=== PATIENT | female | born 1975 | race Two or more races ===

== ENCOUNTER → 2016-04-25 | Outpatient (CLI) | payer MEDICARE, OTHER ==
[~2016-04-25] MED LIST: /LAMO10TA PO; /LAMO20TA PO; /LOR25TA PO; /MELO7TA PO; ABIL5TAB5 PO; ACET50TA PO; ADDE20CA PO; ADDE5TAB5 PO; ALBU17IN INH; ALBU2TA INH; ALEN70SO PO; AMBI5TAB PO; ARTHTAB4 PO; BACL10TA2 PO; BOTO10VL IM; BUSP5TAB45 PO; CALC600T30 PO; CALC600T7 PO; CALCIUM PO; CHAN0.5P2 PO; CLON0.5T PO; CYMB60CA3 PO; DOCU100C PO; DOXY100C PO; Docusate Sod/Senna PO; FOSA70TA PO; HAIRTAB5 PO; HYDR-3719 PO; HYDROXYZINE PO; HYDRPOW28 PO; IBUP80TA PO; IBUPPOW25 PO; IBUPROFEN PO; IMIT100T PO; IMIT4KIT SC; KETO10TAB PO; LAMO200T PO; LIDO5DIS36 TD; LUNE1TAB5 PO; LYRI150C PO; MAGN400C2 PO; MAXA10TA20 PO; MAXA5TAB10 PO; MELA10TA PO; NAPR250T2 PO; NORCOBULK PO; ONDA8TAB2 PO; OXYC-517 PO; OXYC20TA21 PO; OXYC30TA4 PO; OXYC40TA12 PO; OXYC60TA PO; PENN1.5S TD; PENN1.5S2 TD; PENN1.5S2 TOP; PERC7.5T12 PO; POLYBTL FT; PRAZ1CAP PO; PRAZ2CAP PO; PRED20TAB PO; PRENTAB16 PO; PRENTAB43 PO; PROP10TA8 PO; PROZ10CA7 PO; PROZ40CA PO; QUET50TA2 PO; SUMA6INJ16 SC; TIZA2CAP3 PO; TOPA50TA PO; TOPA50TA7 PO; TRAZ150T PO; TRAZPOW PO; Toradol PO; ULTR50TA PO; VENTAER INH; WELL150T PO; XARE15TA PO; ZITH250T PO; [UNRECOGNIZED DRUG - CODE] PO; [UNRECOGNIZED DRUG - OTHER] TD; norco PO
--- NOTE | 2016-05-12 01:21 | ECWPNPC ---
PATIENT NAME: TORY TIRADO : 1975 GENDER: FEMALE VISIT DATE: 04/25/2016 DISCHARGE DATE: 04/25/16 1008 VISIT LOCKED DATE TIME: PHYSICIAN: PATRIZIA WILLAMS RESOURCE: PATRIZIA WILLAMS REASON FOR APPOINTMENT 1. BACL/HIP HISTORY OF PRESENT ILLNESS HISTORY OF PRESENT ILLNESS: HERE FOR F/U AND MANAGEMENT OF CHRONIC LOW BACK PAIN AND BILATERAL HIP PAIN.HX OF AVASCULAR NECROSIS BILAT. HIPS.RATING PAIN VAS 7/10.CURRENTLY USING OXYCONTIN 15MG BID,HYDROCODONE 10/325 Q8H PRN MDD3 AND LYRICA 200MG TID.FINDS CURRENT MEDICINE HELPFUL AT REDUCING PAIN AND KEEPING HER COMFORTABLE.MEDICALLY RETIRED 100%.DESCRIBES PAIN CONSTANT ACHING AND SORE.PAIN IS AGGREVATED BY COLD WEATHER AND RAIN. FALL RISK SCREENING: SCREENING :NO FALLS IN THE PAST YEAR CURRENT MEDICATIONS TAKING ADDERALL XR 20 MG CAPSULE EXTENDED RELEASE 24 HOUR 1 CAPSULE IN THE MORNING ORALLY ONCE A DAY TAKING SUMATRIPTAN SUCCINATE 6 MG/0.5ML KIT SUBCUTANEOUS TAKING BOTOX 200 UNIT SOLUTION RECONSTITUTED INJECTION Q 3MOS TAKING FUSION 65-65-25-30 MG 4 ORALLY DAILY TAKING LIDODERM 5 % PATCH 1 PATCH TO INTACT SKIN REMOVE AFTER 12 HOURS EXTERNALLY ONCE A DAY TAKING LYRICA 200 MG CAPSULE 1-2 ORALLY TID MDD4-2IN AM,1MIDDAY AND ONE AT HS TAKING OXYCONTIN 15 MG TABLET ER 12 HOUR ABUSE-DETERRENT 1 TABLET ORALLY BID MDD2 TAKING HYDROCODONE-ACETAMINOPHEN 10-325 MG TABLET 1/2 -1 TAB ORALLY Q6H MDD3 NEEDED TAKING CLONAZEPAM 0.5 MG TABLET 1 TABLET ORALLY TWICE DAILY NEEDED NOT-TAKING OMEPRAZOLE 20 MG CAPSULE DELAYED RELEASE 2 CAPSULES ORALLY ONCE A DAY NOT-TAKING RANITIDINE HCL 75 MG TABLET 2 TABLETS ORALLY AT BEDTIME MEDICATION LIST REVIEWED AND RECONCILED WITH THE PATIENT PAST MEDICAL HISTORY MIGRIANES VOCAL CORD POLYPS PTSD ANXIETY/DEPRESSION HODGKINS LYMPHOMA CHRONIC PAIN 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 NEW PATIENT PAIN DIARY TODAY'S VISITNOTES FROM 0-10, WHAT LEVEL IS YOUR PAIN TODAY?0 PAIN CLINIC PFS, CLERGY, PUBLIC HEALTH REFERRALS PFS REFERRAL NEEDED?NO CLERGY REFERRAL NEEDED?NO PUBLIC HEALTH REFERRAL NEEDED?NO WAS THE PROVIDER NOTIFIED OF ANY PERTINENT INFO?NO PFS REFERRAL NEEDED?NO CLERGY REFERRAL NEEDED?NO PUBLIC HEALTH REFERRAL NEEDED?NO WAS THE PROVIDER NOTIFIED OF ANY PERTINENT INFO?NO REVIEW OF SYSTEMS CONSTITUTIONAL: ANY CHANGE IN YOUR MEDICAL CONDITION? NO . CHILLS NO . FEVER NO . INFECTION: DO YOU HAVE NEW INFECTIONS? NO . DO YOU HAVE HISTORY OF MRSA? NO . MUSCULOSKELETAL: ANY NEW PATTERNS OF PAIN OR NUMBNESS? NO . GASTROENTEROLOGY: ANY NEW CHANGE IN BOWEL CONTROL? NO . GENITOURINARY: ANY NEW CHANGE IN BLADDER CONTROL? NO . IS THERE A CHANCE YOU COULD BE ? NO . HEMATOLOGY/LYMPH: DO YOU TAKE ANY BLOOD THINNERS? (FOR EXAMPLE- COUMADIN, PLAVIX, AGGRENOX, PLATEL, PRADAXA, OR XARELTO) NO . WHEN WAS YOUR LAST DOSE? DATE: TIME: . NEUROLOGY: HAVE YOU FALLEN IN THE PAST 6 MONTHS? NO . ANY NEW EXTREMITY NUMBNESS OR WEAKNESS? NO . CARDIOLOGY: DO YOU HAVE A PACEMAKER OR DEFIBRILLATOR? NO . RESPIRATORY: HAVE YOU BEEN SICK IN THE PAST WEEK? NO . FEVER NO . FLU LIKE SYMPTOMS? NO . COUGH NO . INTEGUMENTARY: DO YOU HAVE ANY RASHES OR OPEN SORES? NO . ALLERGIC/IMMUNO: ARE YOU ALLERGIC TO SHELLFISH OR IV DYE? NO . ANY NEW ALLERGIES? NO . PSYCHIATRIC: DO YOU HAVE THOUGHTS OF HURTING YOURSELF OR SOMEONE ELSE? NO . ARE YOU ABUSED, NEGLECTED, OR IN AN UNSAFE ENVIRONMENT? NO . ENDOCRINOLOGY: ARE YOU DIABETIC? NO . OTHER: DO YOU NEED ANY PRESCRIPTIONS? YES . IF YES, PLEASE LIST: OXYCONTIN AND HYDROCODONE . ANY NEW PROBLEMS WITH YOUR MEDICATIONS? NO . WHEN DID YOU LAST EAT? ____ . WHEN DID YOU LAST DRINK? ____ . WHAT DID YOU LAST DRINK? ____ . NAME OF PERSON DRIVING YOU HOME? ____ . DO YOU HAVE ANY OTHER QUESTIONS OR CONCERNS NO . REVIEWED BY: PROVIDER: PATRIZIA PRICE . VITAL SIGNS WT 170 LBS, HT 66 IN, BMI 27.44 INDEX, BP 132/73 MM HG, HR 87 /MIN, RR 18 /MIN, TEMP 96.4 F, OXYGEN SAT % 96, NA INITIALS AM, REVIEWED BY: AM. EXAMINATION GENERAL EXAMINATION: LUNGS:LUNG SOUNDS ARE CLEAR. HEART:HEART RATE REGULAR. MUSCULOSKELETAL:*. MUSCULOSKELETAL:*, MUSCLE STRENGTH TESTING 3/5 BILAT.PALPATION: POSITIVE FOR PAIN OVER L/S SPINE. POSITIVE FOR PAIN OVER L/S PARSPINALS.. ASSESSMENTS BILATERAL LOW BACK PAIN, WITH SCIATICA PRESENCE UNSPECIFIED - M54.5 (PRIMARY) BILATERAL HIP PAIN - M25.551 CHRONIC PRESCRIPTION OPIATE USE - Z79.899 AVASCULAR NECROSIS OF BONES OF BOTH HIPS - M87.051 TREATMENT BILATERAL LOW BACK PAIN, WITH SCIATICA PRESENCE UNSPECIFIED CONTINUE LYRICA CAPSULE, 200 MG, 1-2, ORALLY, TID MDD4-2IN AM,1MIDDAY AND ONE AT HS REFILL OXYCONTIN TABLET ER 12 HOUR ABUSE-DETERRENT, 15 MG, 1 TABLET, ORALLY, BID MDD2 REFILL HYDROCODONE-ACETAMINOPHEN TABLET, 10-325 MG, 1/2 -1 TAB, ORALLY, Q6H MDD3 NEEDED PROCEDURE CODES FA211 ESTABILISHED PATIENT [facility] FACILITY CHARGE G8730 PAIN ASSESS POS TOOL F/U PLAN DOC G8427 DOC MEDS VERIFIED W/PT OR RE FOLLOW UP 4 WEEKS ELECTRONICALLY SIGNED BY ALBERT SINGH ON 05/11/2016 AT 01:28 PM EST DISCLAIMER : THIS IS A VISIT SUMMARY EXTRACTED FROM THE [employer] CHART. IT IS NOT A COPY OF THE [employer] PROGRESS NOTE. MTDD
== END ==
LOC: M PAIN 09:00
PROVIDERS: ATTEND Nurse Practitioner Family
DX: Z09 Encounter for follow-up examination after completed treatment for conditions other than malignant neoplasm (principal); G89.29 Other chronic pain; M54.5 Low back pain; M25.551 Pain in right hip; M87.051 Idiopathic aseptic necrosis of right femur; G43.909 Migraine, unspecified, not intractable, without status migrainosus; F43.10 Post-traumatic stress disorder, unspecified; F32.9 Major depressive disorder, single episode, unspecified; F41.9 Anxiety disorder, unspecified; M87.052 Idiopathic aseptic necrosis of left femur; M87.08 Idiopathic aseptic necrosis of bone, other site; M19.90 Unspecified osteoarthritis, unspecified site; Z91.040 Latex allergy status; Z91.041 Radiographic dye allergy status; Z91.013 Allergy to seafood; Z88.8 Allergy status to other drugs, medicaments and biological substances; Z79.891 Long term (current) use of opiate analgesic; Z79.899 Other long term (current) drug therapy; Z85.71 Personal history of Hodgkin lymphoma

== ENCOUNTER → 2016-05-23 | Outpatient (CLI) | payer MEDICARE, OTHER ==
--- NOTE | 2016-05-31 01:28 | ECWPNPC ---
PATIENT NAME: TORY TIRADO : 1975 GENDER: FEMALE VISIT DATE: 05/23/2016 DISCHARGE DATE: 05/23/16 1027 VISIT LOCKED DATE TIME: PHYSICIAN: PATRIZIA WILLAMS RESOURCE: PATRIZIA WILLAMS REASON FOR APPOINTMENT 1. FOLLOWUP HISTORY OF PRESENT ILLNESS HISTORY OF PRESENT ILLNESS: PAIN THE PATIENT DESCRIBES THE PAIN... THE PATIENT DESCRIBES THE PAIN... HERE FOR F/U AND MANAGEMENT OF CHRONIC LOW BACK PAIN AND BILATERAL HIP PAIN.HX OF AVASCULAR NECROSIS BILAT. HIPS.RATING PAIN VAS 7/10.CURRENTLY USING OXYCONTIN 15MG BID,HYDROCODONE 10/325 Q8H PRN MDD3 AND LYRICA 200MG TID.FINDS CURRENT MEDICINE HELPFUL AT REDUCING PAIN AND KEEPING HER COMFORTABLE.MEDICALLY RETIRED 100%.DESCRIBES PAIN CONSTANT ACHING AND SORE.PAIN IS AGGREVATED BY COLD WEATHER AND RAIN. FALL RISK SCREENING: SCREENING :NO FALLS IN THE PAST YEAR CURRENT MEDICATIONS TAKING ADDERALL XR 20 MG CAPSULE EXTENDED RELEASE 24 HOUR 1 CAPSULE IN THE MORNING ORALLY ONCE A DAY TAKING SUMATRIPTAN SUCCINATE 6 MG/0.5ML KIT SUBCUTANEOUS TAKING BOTOX 200 UNIT SOLUTION RECONSTITUTED INJECTION Q 3MOS TAKING FUSION 65-65-25-30 MG 4 ORALLY DAILY TAKING LIDODERM 5 % PATCH 1 PATCH TO INTACT SKIN REMOVE AFTER 12 HOURS EXTERNALLY ONCE A DAY TAKING CLONAZEPAM 0.5 MG TABLET 1 TABLET ORALLY TWICE DAILY NEEDED TAKING LYRICA 200 MG CAPSULE 1-2 ORALLY TID MDD4-2IN AM,1MIDDAY AND ONE AT HS TAKING OXYCONTIN 15 MG TABLET ER 12 HOUR ABUSE-DETERRENT 1 TABLET ORALLY BID MDD2 TAKING HYDROCODONE-ACETAMINOPHEN 10-325 MG TABLET 1/2 -1 TAB ORALLY Q6H MDD4 NEEDED NOT-TAKING OMEPRAZOLE 20 MG CAPSULE DELAYED RELEASE 2 CAPSULES ORALLY ONCE A DAY NOT-TAKING RANITIDINE HCL 75 MG TABLET 2 TABLETS ORALLY AT BEDTIME MEDICATION LIST REVIEWED AND RECONCILED WITH THE PATIENT PAST MEDICAL HISTORY MIGRIANES VOCAL CORD POLYPS PTSD ANXIETY/DEPRESSION HODGKINS LYMPHOMA CHRONIC PAIN 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 NEW PATIENT PAIN DIARY TODAY'S VISITNOTES FROM 0-10, WHAT LEVEL IS YOUR PAIN TODAY?0 PAIN CLINIC PFS, CLERGY, PUBLIC HEALTH REFERRALS PFS REFERRAL NEEDED?NO CLERGY REFERRAL NEEDED?NO PUBLIC HEALTH REFERRAL NEEDED?NO WAS THE PROVIDER NOTIFIED OF ANY PERTINENT INFO?NO PFS REFERRAL NEEDED?NO CLERGY REFERRAL NEEDED?NO PUBLIC HEALTH REFERRAL NEEDED?NO WAS THE PROVIDER NOTIFIED OF ANY PERTINENT INFO?NO REVIEW OF SYSTEMS CONSTITUTIONAL: ANY CHANGE IN YOUR MEDICAL CONDITION? NO . CHILLS NO . FEVER NO . INFECTION: DO YOU HAVE NEW INFECTIONS? NO . DO YOU HAVE HISTORY OF MRSA? NO . MUSCULOSKELETAL: ANY NEW PATTERNS OF PAIN OR NUMBNESS? YES, PAIN IN RIGHT ARM AND HAVING DIFFICULTY LIFTING . GASTROENTEROLOGY: ANY NEW CHANGE IN BOWEL CONTROL? NO . GENITOURINARY: ANY NEW CHANGE IN BLADDER CONTROL? NO . IS THERE A CHANCE YOU COULD BE ? NO . HEMATOLOGY/LYMPH: DO YOU TAKE ANY BLOOD THINNERS? (FOR EXAMPLE- COUMADIN, PLAVIX, AGGRENOX, PLATEL, PRADAXA, OR XARELTO) NO . WHEN WAS YOUR LAST DOSE? DATE: TIME: . NEUROLOGY: HAVE YOU FALLEN IN THE PAST 6 MONTHS? NO . ANY NEW EXTREMITY NUMBNESS OR WEAKNESS? NO . CARDIOLOGY: DO YOU HAVE A PACEMAKER OR DEFIBRILLATOR? NO . RESPIRATORY: HAVE YOU BEEN SICK IN THE PAST WEEK? YES, STOMACH BUG . FEVER NO . FLU LIKE SYMPTOMS? NO . COUGH NO . INTEGUMENTARY: DO YOU HAVE ANY RASHES OR OPEN SORES? NO . ALLERGIC/IMMUNO: ARE YOU ALLERGIC TO SHELLFISH OR IV DYE? YES . ANY NEW ALLERGIES? NO . PSYCHIATRIC: DO YOU HAVE THOUGHTS OF HURTING YOURSELF OR SOMEONE ELSE? NO . ARE YOU ABUSED, NEGLECTED, OR IN AN UNSAFE ENVIRONMENT? NO . ENDOCRINOLOGY: ARE YOU DIABETIC? NO . OTHER: DO YOU NEED ANY PRESCRIPTIONS? YES . IF YES, PLEASE LIST: LYRICA, HYDROCODONE, OXYCONTIN, LIDODERM . ANY NEW PROBLEMS WITH YOUR MEDICATIONS? NO . WHEN DID YOU LAST EAT? ____ . WHEN DID YOU LAST DRINK? ____ . WHAT DID YOU LAST DRINK? ____ . NAME OF PERSON DRIVING YOU HOME? ____ . DO YOU HAVE ANY OTHER QUESTIONS OR CONCERNS YES, PAIN IN ARM FOR AWHILE NOW . REVIEWED BY: PROVIDER: PATRIZIA PRICE . VITAL SIGNS WT 195 LBS, HT 66 IN, BMI 31.47 INDEX, BP 122/76 MM HG, HR 69 /MIN, RR 16 /MIN, TEMP 96.6 F, OXYGEN SAT % 96, NA INITIALS TL 1000, REVIEWED BY: CSPT WAS WEIGHED ON SCALE- TL. EXAMINATION GENERAL EXAMINATION: LUNGS:LUNG SOUNDS ARE CLEAR. HEART:HEART RATE REGULAR. MUSCULOSKELETAL:*. MUSCULOSKELETAL:*, MUSCLE STRENGTH TESTING 3/5 BILAT.PALPATION: POSITIVE FOR PAIN OVER L/S SPINE. POSITIVE FOR PAIN OVER L/S PARSPINALS.. ASSESSMENTS BILATERAL LOW BACK PAIN, WITH SCIATICA PRESENCE UNSPECIFIED - M54.5 (PRIMARY) BILATERAL HIP PAIN - M25.551 CHRONIC PRESCRIPTION OPIATE USE - Z79.899 AVASCULAR NECROSIS OF BONES OF BOTH HIPS - M87.051 TREATMENT BILATERAL LOW BACK PAIN, WITH SCIATICA PRESENCE UNSPECIFIED REFILL LYRICA CAPSULE, 200 MG, 1-2, ORALLY, TID MDD4-2IN AM,1MIDDAY AND ONE AT HS REFILL OXYCONTIN TABLET ER 12 HOUR ABUSE-DETERRENT, 15 MG, 1 TABLET, ORALLY, BID MDD2 REFILL HYDROCODONE-ACETAMINOPHEN TABLET, 10-325 MG, 1/2 -1 TAB, ORALLY, Q6H MDD4 NEEDED PROCEDURE CODES FA211 ESTABILISHED PATIENT [facility] CHARGE G8730 PAIN ASSESS POS TOOL F/U PLAN DOC G8427 DOC MEDS VERIFIED W/PT OR RE DISPOSITION & COMMUNICATION FOLLOW UP 2 MONTHS ELECTRONICALLY SIGNED BY ALBERT SINGH ON 05/30/2016 AT 07:46 PM EST DISCLAIMER : THIS IS A VISIT SUMMARY EXTRACTED FROM THE [employer] CHART. IT IS NOT A COPY OF THE [employer] PROGRESS NOTE. MTDD
== END ==
LOC: M PAIN 09:20
PROVIDERS: ATTEND Nurse Practitioner Family
DX: Z09 Encounter for follow-up examination after completed treatment for conditions other than malignant neoplasm (principal); G89.29 Other chronic pain; M54.5 Low back pain; M25.551 Pain in right hip; M25.552 Pain in left hip; M87.051 Idiopathic aseptic necrosis of right femur; F43.10 Post-traumatic stress disorder, unspecified; F32.9 Major depressive disorder, single episode, unspecified; F41.9 Anxiety disorder, unspecified; M19.90 Unspecified osteoarthritis, unspecified site; Z88.8 Allergy status to other drugs, medicaments and biological substances; Z91.040 Latex allergy status; Z91.041 Radiographic dye allergy status; Z91.013 Allergy to seafood; Z79.891 Long term (current) use of opiate analgesic; Z79.899 Other long term (current) drug therapy; Z86.69 Personal history of other diseases of the nervous system and sense organs; Z85.71 Personal history of Hodgkin lymphoma

== ENCOUNTER → 2016-07-23 | Outpatient (CLI) | payer MEDICARE, OTHER ==
[~2016-07-23] MED LIST changes: -OXYC40TA12 PO; +OXYC40TA13 PO
--- NOTE | 2016-08-04 01:00 | ECWPNPC ---
PATIENT NAME: TORY TIRADO : 1975 GENDER: FEMALE VISIT DATE: 07/23/2016 DISCHARGE DATE: 07/23/16 1017 VISIT LOCKED DATE TIME: PHYSICIAN: PATRIZIA WILLAMS RESOURCE: PATRIZIA WILLAMS REASON FOR APPOINTMENT 1. CHRONIC PAIN HISTORY OF PRESENT ILLNESS HISTORY OF PRESENT ILLNESS: PAIN THE PATIENT DESCRIBES THE PAIN... THE PATIENT DESCRIBES THE PAIN... THE PATIENT DESCRIBES THE PAIN... HERE FOR F/U AND MANAGEMENT OF CHRONIC LOW BACK PAIN AND BILATERAL HIP PAIN.HX OF AVASCULAR NECROSIS BILAT. HIPS.RATING PAIN VAS 7/10.CURRENTLY USING OXYCONTIN 15MG BID,HYDROCODONE 10/325 Q8H PRN MDD3 AND LYRICA 200MG TID.FINDS CURRENT MEDICINE HELPFUL AT REDUCING PAIN AND KEEPING HER COMFORTABLE.MEDICALLY RETIRED 100%.DESCRIBES PAIN CONSTANT ACHING AND SORE.PAIN IS AGGREVATED BY COLD WEATHER AND RAIN.RECENT DIAGNOSIS OF LYMPHOMA. FALL RISK SCREENING: SCREENING :NO FALLS IN THE PAST YEAR CURRENT MEDICATIONS TAKING ADDERALL XR 20 MG CAPSULE EXTENDED RELEASE 24 HOUR 1 CAPSULE IN THE MORNING ORALLY ONCE A DAY TAKING SUMATRIPTAN SUCCINATE 6 MG/0.5ML KIT SUBCUTANEOUS TAKING BOTOX 200 UNIT SOLUTION RECONSTITUTED INJECTION Q 3MOS TAKING FUSION 65-65-25-30 MG 4 ORALLY DAILY TAKING LIDODERM 5 % PATCH 1 PATCH TO INTACT SKIN REMOVE AFTER 12 HOURS EXTERNALLY ONCE A DAY TAKING CLONAZEPAM 1 MG TABLET 1 TABLET ORALLY TWICE DAILY NEEDED TAKING LYRICA 200 MG CAPSULE 1-2 ORALLY TID MDD4-2IN AM,1MIDDAY AND ONE AT HS TAKING HYDROCODONE-ACETAMINOPHEN 10-325 MG TABLET 1/2 -1 TAB ORALLY Q6H MDD4 NEEDED TAKING OXYCONTIN 15 MG TABLET ER 12 HOUR ABUSE-DETERRENT 1 TABLET ORALLY BID MDD2 NOT-TAKING OMEPRAZOLE 20 MG CAPSULE DELAYED RELEASE 2 CAPSULES ORALLY ONCE A DAY NOT-TAKING RANITIDINE HCL 75 MG TABLET 2 TABLETS ORALLY AT BEDTIME MEDICATION LIST REVIEWED AND RECONCILED WITH THE PATIENT PAST MEDICAL HISTORY MIGRIANES VOCAL CORD POLYPS PTSD ANXIETY/DEPRESSION HODGKINS LYMPHOMA CHRONIC PAIN 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 HOSPITALIZATION/MAJOR DIAGNOSTIC PROCEDURE BULIMIA REVIEW OF SYSTEMS CONSTITUTIONAL: ANY CHANGE IN YOUR MEDICAL CONDITION? YES DX OF IGG-4 DISEASE..SEEING ONCOLOGY IS [place] . CHILLS NO . FEVER NO . INFECTION: DO YOU HAVE NEW INFECTIONS? NO . DO YOU HAVE HISTORY OF MRSA? NO . MUSCULOSKELETAL: ANY NEW PATTERNS OF PAIN OR NUMBNESS? NO . GASTROENTEROLOGY: ANY NEW CHANGE IN BOWEL CONTROL? NO . GENITOURINARY: ANY NEW CHANGE IN BLADDER CONTROL? NO . IS THERE A CHANCE YOU COULD BE ? NO . HEMATOLOGY/LYMPH: DO YOU TAKE ANY BLOOD THINNERS? (FOR EXAMPLE- COUMADIN, PLAVIX, AGGRENOX, PLATEL, PRADAXA, OR XARELTO) NO . WHEN WAS YOUR LAST DOSE? DATE: TIME: . NEUROLOGY: HAVE YOU FALLEN IN THE PAST 6 MONTHS? NO . ANY NEW EXTREMITY NUMBNESS OR WEAKNESS? NO . CARDIOLOGY: DO YOU HAVE A PACEMAKER OR DEFIBRILLATOR? NO . RESPIRATORY: HAVE YOU BEEN SICK IN THE PAST WEEK? NO . FEVER NO . FLU LIKE SYMPTOMS? NO . COUGH NO . INTEGUMENTARY: DO YOU HAVE ANY RASHES OR OPEN SORES? NO . ALLERGIC/IMMUNO: ARE YOU ALLERGIC TO SHELLFISH OR IV DYE? NO . ANY NEW ALLERGIES? NO . PSYCHIATRIC: DO YOU HAVE THOUGHTS OF HURTING YOURSELF OR SOMEONE ELSE? NO . ARE YOU ABUSED, NEGLECTED, OR IN AN UNSAFE ENVIRONMENT? NO . ENDOCRINOLOGY: ARE YOU DIABETIC? NO . OTHER: DO YOU NEED ANY PRESCRIPTIONS? YES HYDROCODONE,OXYCONTIN, LYRICA . IF YES, PLEASE LIST: ____ . ANY NEW PROBLEMS WITH YOUR MEDICATIONS? NO . WHEN DID YOU LAST EAT? ____ . WHEN DID YOU LAST DRINK? ____ . WHAT DID YOU LAST DRINK? ____ . NAME OF PERSON DRIVING YOU HOME? ____ . DO YOU HAVE ANY OTHER QUESTIONS OR CONCERNS NO . REVIEWED BY: PROVIDER: PATRIZIA PRICE . VITAL SIGNS WT 186.6 LBS, HT 66 IN, BMI 30.11 INDEX, BP 116/71 MM HG, HR 76 /MIN, RR 16 /MIN, TEMP 98.9 F, OXYGEN SAT % 98%, NA INITIALS AW 0941. EXAMINATION GENERAL EXAMINATION: LUNGS:LUNG SOUNDS ARE CLEAR. HEART:HEART RATE REGULAR. MUSCULOSKELETAL:*. MUSCULOSKELETAL:*, MUSCLE STRENGTH TESTING 3/5 BILAT.PALPATION: POSITIVE FOR PAIN OVER L/S SPINE. POSITIVE FOR PAIN OVER L/S PARSPINALS.. ASSESSMENTS BILATERAL LOW BACK PAIN, WITH SCIATICA PRESENCE UNSPECIFIED - M54.5 (PRIMARY) BILATERAL HIP PAIN - M25.551 CHRONIC PRESCRIPTION OPIATE USE - Z79.899 AVASCULAR NECROSIS OF BONES OF BOTH HIPS - M87.051 TREATMENT BILATERAL LOW BACK PAIN, WITH SCIATICA PRESENCE UNSPECIFIED CONTINUE LYRICA CAPSULE, 200 MG, 1-2, ORALLY, TID MDD4-2IN AM,1MIDDAY AND ONE AT HS CONTINUE HYDROCODONE-ACETAMINOPHEN TABLET, 10-325 MG, 1/2 -1 TAB, ORALLY, Q6H MDD4 NEEDED CONTINUE OXYCONTIN TABLET ER 12 HOUR ABUSE-DETERRENT, 15 MG, 1 TABLET, ORALLY, BID MDD2 NOTES: ISTOP REGISTRY REVIEWED AND DEMNOSTRATES COMPLLIANCE. BRINGS IN MEDICATIONS WHICH IS APPROPRIATE FOR WHAT WAS DISPENSED. RECENT URINE TOXICOLOGY REVIEWED. NO UNAUTHORIZED MEDICATIONS. NO ILLICIT SUBSTANCES AND PRESCRIBED MEDICATIONS WERE PRESENT. , RISKS AND BENEFITS OF NARCOTIC/OPIOD MEDICATIONS WERE REVIEWED WITH PATIENT - THIS INCLUDES BUT IS NOT LIMITED TO RISK OF DEPENDANCE/DEVELOPMENT OF ADDICTION, MOOD DISTURBANCE AND DEPRESSION, OSTEOPOROSIS, HORMONAL AND LABIDAL CHANGES, RESPIRATORY DEPRESSION AND . PATIENT IS ADVISED NOT TO DRIVE WHILE ON THESE MEDICATIONS. PROCEDURE CODES FA211 ESTABILISHED PATIENT [facility] FACILITY CHARGE G8730 PAIN ASSESS POS TOOL F/U PLAN DOC G8427 DOC MEDS VERIFIED W/PT OR RE DISPOSITION & COMMUNICATION FOLLOW UP 2 MONTHS ELECTRONICALLY SIGNED BY ALBERT SINGH ON 08/03/2016 AT 09:41 AM EDT DISCLAIMER : THIS IS A VISIT SUMMARY EXTRACTED FROM THE [employer] CHART. IT IS NOT A COPY OF THE [employer] PROGRESS NOTE. MTDD
== END | disposition home or self-care (01) ==
LOC: M PAIN 09:00
PROVIDERS: ATTEND Nurse Practitioner Family
DX: G89.29 Other chronic pain (principal); M54.5 Low back pain; M25.551 Pain in right hip; M87.051 Idiopathic aseptic necrosis of right femur; G43.909 Migraine, unspecified, not intractable, without status migrainosus; F43.10 Post-traumatic stress disorder, unspecified; F41.9 Anxiety disorder, unspecified; F33.9 Major depressive disorder, recurrent, unspecified; C85.90 Non-Hodgkin lymphoma, unspecified, unspecified site; M19.90 Unspecified osteoarthritis, unspecified site; J38.1 Polyp of vocal cord and larynx; Z79.899 Other long term (current) drug therapy; Z91.013 Allergy to seafood; Z91.040 Latex allergy status; Z91.041 Radiographic dye allergy status; Z91.048 Other nonmedicinal substance allergy status

== ENCOUNTER → 2016-08-29 | Outpatient (CLI) | payer MEDICARE, OTHER ==
--- NOTE | 2016-08-30 11:21 | REP ---
PET/CT: HISTORY: Initial staging lymphoma. Bilateral laryngeal lesion - biopsy March 26, 2016. History of Hodgkin's disease as a child. COMPARISONS: Comparison chest x-ray March 28, 2016. Comparison chest CT study September 01, 2014. TECHNIQUE: 66 minutes following the intravenous injection of a 8.6 mCi dose of F-18 FDG, three-dimensional PET scintigraphy is acquired from the skull base to the proximal thighs. Triplanar noncontrast CT scanning is acquired through the same anatomic range for attenuation correction, and image registration with scan parameters optimized to minimize radiation exposure to the patient. PET scintigraphy and CT datasets were fused and displayed on a workstation with multiplanar and projection display capability. PET/CT FINDINGS: There is some normal variant skeletal muscle uptake in the trapezius muscle on the left. There is no abnormal laryngeal uptake. No evidence of cervical adenopathy or mass. There is some symmetric uptake in the oropharyngeal wall bilaterally consistent with normal variant. In the thorax, there is no evidence of abnormal hilar or mediastinal adele uptake. There are mild fibrotic changes in the paramediastinal distribution in the upper lobes which may reflect post radiation change. No abnormal pulmonary parenchymal hypermetabolic uptake is seen. In the abdomen and pelvis, there is normal FDG distribution of the liver, spleen, gastrointestinal, and genitourinary tract. No abnormal abdominal or pelvic hypermetabolic uptake is seen. Gastric bypass surgical sutures are seen. IMPRESSION: Negative PET scintigraphy. Signed by Celio Veras MD 08/30/2016 12:40 P
== END ==
LOC: M PLARAD 11:54
PROVIDERS: ATTEND Internal Medicine Hematology & Oncology
DX: C85.90 Non-Hodgkin lymphoma, unspecified, unspecified site (principal)
CPT/HCPCS: 78815; A9552

== ENCOUNTER → 2016-09-21 | Outpatient (CLI) | payer MEDICARE, OTHER ==
--- NOTE | 2016-10-04 01:23 | ECWPNPC ---
PATIENT NAME: TORY TIRADO : 1975 GENDER: FEMALE VISIT DATE: 09/21/2016 DISCHARGE DATE: 09/21/16 1108 VISIT LOCKED DATE TIME: PHYSICIAN: PATRIZIA WILLAMS RESOURCE: PATRIZIA WILLAMS REASON FOR APPOINTMENT 1. CHRONIC PAIN 2 MONTHS F/U HISTORY OF PRESENT ILLNESS HISTORY OF PRESENT ILLNESS: PAIN THE PATIENT DESCRIBES THE PAIN... THE PATIENT DESCRIBES THE PAIN... THE PATIENT DESCRIBES THE PAIN... THE PATIENT DESCRIBES THE PAIN... HERE FOR F/U AND MANAGEMENT OF CHRONIC LOW BACK PAIN AND BILATERAL HIP PAIN.HX OF AVASCULAR NECROSIS BILAT. HIPS.RATING PAIN VAS 7/10.CURRENTLY USING OXYCONTIN 15MG BID,HYDROCODONE 10/325 Q8H PRN MDD3 AND LYRICA 200MG TID.FINDS CURRENT MEDICINE HELPFUL AT REDUCING PAIN AND KEEPING HER COMFORTABLE.MEDICALLY RETIRED 100%.DESCRIBES PAIN CONSTANT ACHING AND SORE.PAIN IS AGGREVATED BY COLD WEATHER AND RAIN. FALL RISK SCREENING: SCREENING :NO FALLS IN THE PAST YEAR CURRENT MEDICATIONS TAKING SUMATRIPTAN SUCCINATE 6 MG/0.5ML KIT SUBCUTANEOUS TAKING BOTOX 200 UNIT SOLUTION RECONSTITUTED INJECTION Q 3MOS TAKING FUSION 65-65-25-30 MG 4 ORALLY DAILY TAKING LIDODERM 5 % PATCH 1 PATCH TO INTACT SKIN REMOVE AFTER 12 HOURS EXTERNALLY ONCE A DAY TAKING CLONAZEPAM 1 MG TABLET 1 TABLET ORALLY TWICE DAILY NEEDED TAKING LYRICA 200 MG CAPSULE 1 TAB ORALLY 3 TIMES A DAY TAKING HYDROCODONE-ACETAMINOPHEN 10-325 MG TABLET 1/2 -1 TAB ORALLY Q6H MDD3 NEEDED TAKING OXYCONTIN 15 MG TABLET ER 12 HOUR ABUSE-DETERRENT 1 TABLET ORALLY BID MDD2 NOT-TAKING ADDERALL XR 20 MG CAPSULE EXTENDED RELEASE 24 HOUR 1 CAPSULE IN THE MORNING ORALLY ONCE A DAY NOT-TAKING OMEPRAZOLE 20 MG CAPSULE DELAYED RELEASE 2 CAPSULES ORALLY ONCE A DAY NOT-TAKING RANITIDINE HCL 75 MG TABLET 2 TABLETS ORALLY AT BEDTIME MEDICATION LIST REVIEWED AND RECONCILED WITH THE PATIENT PAST MEDICAL HISTORY MIGRIANES VOCAL CORD POLYPS PTSD ANXIETY/DEPRESSION HODGKINS LYMPHOMA CHRONIC PAIN 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 REVIEW OF SYSTEMS REVIEWED BY: PROVIDER: PATRIZIA PRICE . CONSTITUTIONAL: ANY CHANGE IN YOUR MEDICAL CONDITION? NO . CHILLS NO . FEVER NO . INFECTION: DO YOU HAVE NEW INFECTIONS? NO . DO YOU HAVE HISTORY OF MRSA? NO . MUSCULOSKELETAL: ANY NEW PATTERNS OF PAIN OR NUMBNESS? NO . GASTROENTEROLOGY: ANY NEW CHANGE IN BOWEL CONTROL? NO . GENITOURINARY: ANY NEW CHANGE IN BLADDER CONTROL? NO . IS THERE A CHANCE YOU COULD BE ? NO . HEMATOLOGY/LYMPH: DO YOU TAKE ANY BLOOD THINNERS? (FOR EXAMPLE- COUMADIN, PLAVIX, AGGRENOX, PLATEL, PRADAXA, OR XARELTO) NO . WHEN WAS YOUR LAST DOSE? DATE: TIME: . NEUROLOGY: HAVE YOU FALLEN IN THE PAST 6 MONTHS? NO . ANY NEW EXTREMITY NUMBNESS OR WEAKNESS? NO . CARDIOLOGY: DO YOU HAVE A PACEMAKER OR DEFIBRILLATOR? NO . RESPIRATORY: HAVE YOU BEEN SICK IN THE PAST WEEK? NO . FEVER NO . FLU LIKE SYMPTOMS? NO . COUGH NO . INTEGUMENTARY: DO YOU HAVE ANY RASHES OR OPEN SORES? NO . ALLERGIC/IMMUNO: ARE YOU ALLERGIC TO SHELLFISH OR IV DYE? YES . ANY NEW ALLERGIES? NO . PSYCHIATRIC: DO YOU HAVE THOUGHTS OF HURTING YOURSELF OR SOMEONE ELSE? NO . ARE YOU ABUSED, NEGLECTED, OR IN AN UNSAFE ENVIRONMENT? NO . ENDOCRINOLOGY: ARE YOU DIABETIC? NO . OTHER: DO YOU NEED ANY PRESCRIPTIONS? YES . IF YES, PLEASE LIST: LYRICA, HYDROCODONE,OXYCONTIN . ANY NEW PROBLEMS WITH YOUR MEDICATIONS? NO . WHEN DID YOU LAST EAT? ____ . WHEN DID YOU LAST DRINK? ____ . WHAT DID YOU LAST DRINK? ____ . NAME OF PERSON DRIVING YOU HOME? ____ . DO YOU HAVE ANY OTHER QUESTIONS OR CONCERNS NO . VITAL SIGNS WT 182.0 LBS, HT 66 IN, BMI 29.37 INDEX, BP 96/63 MM HG, HR 79 /MIN, RR 16 /MIN, TEMP 98.0 F, OXYGEN SAT % 99%, NA INITIALS TL 1018, REVIEWED BY: JULISSA. EXAMINATION GENERAL EXAMINATION: LUNGS:LUNG SOUNDS ARE CLEAR. HEART:HEART RATE REGULAR. MUSCULOSKELETAL:*, MUSCLE STRENGTH TESTING 3/5 BILAT.PALPATION: POSITIVE FOR PAIN OVER L/S SPINE. POSITIVE FOR PAIN OVER L/S PARASPINALS.. ASSESSMENTS BILATERAL LOW BACK PAIN, WITH SCIATICA PRESENCE UNSPECIFIED - M54.5 (PRIMARY) BILATERAL HIP PAIN - M25.551 CHRONIC PRESCRIPTION OPIATE USE - Z79.899 AVASCULAR NECROSIS OF BONES OF BOTH HIPS - M87.051 TREATMENT BILATERAL LOW BACK PAIN, WITH SCIATICA PRESENCE UNSPECIFIED REFILL LYRICA CAPSULE, 200 MG, 1 TAB, ORALLY, 3 TIMES A DAY, 30 DAY(S), 90 TABLET, REFILLS 2 REFILL HYDROCODONE-ACETAMINOPHEN TABLET, 10-325 MG, 1/2 -1 TAB, ORALLY, Q6H MDD4 NEEDED, 30 DAY(S), 120, REFILLS 0 REFILL OXYCONTIN TABLET ER 12 HOUR ABUSE-DETERRENT, 15 MG, 1 TABLET, ORALLY, BID MDD2, 30 DAY(S), 60, REFILLS 0 NOTES: ISTOP REGISTRY REVIEWED AND DEMNOSTRATES COMPLLIANCE. BRINGS IN MEDICATIONS WHICH IS APPROPRIATE FOR WHAT WAS DISPENSED. RECENT URINE TOXICOLOGY REVIEWED. NO UNAUTHORIZED MEDICATIONS. NO ILLICIT SUBSTANCES AND PRESCRIBED MEDICATIONS WERE PRESENT. URINE TOX TODAY, RISKS AND BENEFITS OF NARCOTIC/OPIOD MEDICATIONS WERE REVIEWED WITH PATIENT - THIS INCLUDES BUT IS NOT LIMITED TO RISK OF DEPENDANCE/DEVELOPMENT OF ADDICTION, MOOD DISTURBANCE AND DEPRESSION, OSTEOPOROSIS, HORMONAL AND LABIDAL CHANGES, RESPIRATORY DEPRESSION AND . PATIENT IS ADVISED NOT TO DRIVE WHILE ON THESE MEDICATIONS. PROCEDURE CODES FA211 ESTABILISHED PATIENT [facility] CHARGE DISPOSITION & COMMUNICATION FOLLOW UP 2 MONTHS ELECTRONICALLY SIGNED BY ALBERT SINGH ON 10/03/2016 AT 04:55 PM EDT DISCLAIMER : THIS IS A VISIT SUMMARY EXTRACTED FROM THE [employer] CHART. IT IS NOT A COPY OF THE [employer] PROGRESS NOTE. ELIGIO
== END | disposition home or self-care (01) ==
LOC: M PAIN 10:00
PROVIDERS: ATTEND Nurse Practitioner Family
DX: G89.29 Other chronic pain (principal); M54.5 Low back pain; M25.551 Pain in right hip; M87.051 Idiopathic aseptic necrosis of right femur; F43.10 Post-traumatic stress disorder, unspecified; F41.9 Anxiety disorder, unspecified; F33.9 Major depressive disorder, recurrent, unspecified; M19.90 Unspecified osteoarthritis, unspecified site; Z86.69 Personal history of other diseases of the nervous system and sense organs; Z85.71 Personal history of Hodgkin lymphoma; Z79.899 Other long term (current) drug therapy; Z91.040 Latex allergy status; Z91.041 Radiographic dye allergy status; Z91.013 Allergy to seafood

== ENCOUNTER → 2016-11-21 | Outpatient (CLI) | payer MEDICARE, OTHER ==
[~2016-11-21] MED LIST changes: +ABIL1TAB11 PO; -ABIL5TAB5 PO; +ADDE1TAB14 PO; -ADDE20CA PO; +ADDE20CA3 PO; -ADDE5TAB5 PO; -LIDO5DIS36 TD; +LIDO5DIS41 TD; -NAPR250T2 PO; +NAPR250T4 PO; -OXYC20TA21 PO; +OXYC20TA40 PO; -OXYC40TA13 PO; +OXYC40TA29 PO; -TOPA50TA7 PO; +TOPA50TA8 PO
--- NOTE | 2016-11-25 00:04 | ECWPNPC ---
PATIENT NAME: TORY TIRADO : 1975 GENDER: FEMALE VISIT DATE: 11/21/2016 DISCHARGE DATE: 11/21/16 1000 VISIT LOCKED DATE TIME: PHYSICIAN: PATRIZIA WILLAMS RESOURCE: PATRIZIA WILLAMS REASON FOR APPOINTMENT 1. CHRONIC PAIN 2 MONTHS F/U HISTORY OF PRESENT ILLNESS HISTORY OF PRESENT ILLNESS: PAIN THE PATIENT DESCRIBES THE PAIN... THE PATIENT DESCRIBES THE PAIN... THE PATIENT DESCRIBES THE PAIN... THE PATIENT DESCRIBES THE PAIN... THE PATIENT DESCRIBES THE PAIN... PAIN THE PATIENT DESCRIBES THE PAIN... THE PATIENT DESCRIBES THE PAIN... THE PATIENT DESCRIBES THE PAIN... THE PATIENT DESCRIBES THE PAIN... THE PATIENT DESCRIBES THE PAIN... HERE FOR F/U AND MANAGEMENT OF CHRONIC LOW BACK PAIN AND BILATERAL HIP PAIN.HX OF AVASCULAR NECROSIS BILAT. HIPS.RATING PAIN VAS 7/10.CURRENTLY USING OXYCONTIN 15MG BID,HYDROCODONE 10/325 Q8H PRN MDD3 AND LYRICA 200MG TID.FINDS CURRENT MEDICINE HELPFUL AT REDUCING PAIN AND KEEPING HER COMFORTABLE.MEDICALLY RETIRED 100%.DESCRIBES PAIN CONSTANT ACHING AND SORE.PAIN IS AGGREVATED BY COLD WEATHER AND RAIN. FALL RISK SCREENING: SCREENING :NO FALLS IN THE PAST YEAR CURRENT MEDICATIONS TAKING SUMATRIPTAN SUCCINATE 6 MG/0.5ML KIT SUBCUTANEOUS TAKING BOTOX 200 UNIT SOLUTION RECONSTITUTED INJECTION Q 3MOS TAKING FUSION 65-65-25-30 MG 4 ORALLY DAILY TAKING LIDODERM 5 % PATCH 1 PATCH TO INTACT SKIN REMOVE AFTER 12 HOURS EXTERNALLY ONCE A DAY TAKING CLONAZEPAM 1 MG TABLET 1 TABLET ORALLY TWICE DAILY NEEDED TAKING HYDROCODONE-ACETAMINOPHEN 10-325 MG TABLET 1/2 -1 TAB ORALLY Q6H MDD4 NEEDED TAKING OXYCONTIN 15 MG TABLET ER 12 HOUR ABUSE-DETERRENT 1 TABLET ORALLY BID MDD2 TAKING LYRICA 200 MG CAPSULE 1 TAB ORALLY 3 TIMES A DAY TAKING LEXAPRO 10 MG TABLET 1 TABLET ORALLY ONCE A DAY TAKING CLONIDINE HCL 0.2 MG TABLET 1 TABLET ORALLY ONCE AT BEDTIME NOT-TAKING ADDERALL XR 20 MG CAPSULE EXTENDED RELEASE 24 HOUR 1 CAPSULE IN THE MORNING ORALLY ONCE A DAY NOT-TAKING OMEPRAZOLE 20 MG CAPSULE DELAYED RELEASE 2 CAPSULES ORALLY ONCE A DAY NOT-TAKING RANITIDINE HCL 75 MG TABLET 2 TABLETS ORALLY AT BEDTIME MEDICATION LIST REVIEWED AND RECONCILED WITH THE PATIENT PAST MEDICAL HISTORY MIGRIANES VOCAL CORD POLYPS PTSD ANXIETY/DEPRESSION HODGKINS LYMPHOMA CHRONIC PAIN 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 CONSTITUTIONAL: ANY CHANGE IN YOUR MEDICAL CONDITION? NO . CHILLS NO . FEVER NO . INFECTION: DO YOU HAVE NEW INFECTIONS? NO . DO YOU HAVE HISTORY OF MRSA? NO . MUSCULOSKELETAL: ANY NEW PATTERNS OF PAIN OR NUMBNESS? NO . GASTROENTEROLOGY: ANY NEW CHANGE IN BOWEL CONTROL? NO . GENITOURINARY: ANY NEW CHANGE IN BLADDER CONTROL? NO . IS THERE A CHANCE YOU COULD BE ? NO . HEMATOLOGY/LYMPH: DO YOU TAKE ANY BLOOD THINNERS? (FOR EXAMPLE- COUMADIN, PLAVIX, AGGRENOX, PLATEL, PRADAXA, OR XARELTO) NO . WHEN WAS YOUR LAST DOSE? DATE: TIME: . NEUROLOGY: HAVE YOU FALLEN IN THE PAST 6 MONTHS? NO . ANY NEW EXTREMITY NUMBNESS OR WEAKNESS? NO . CARDIOLOGY: DO YOU HAVE A PACEMAKER OR DEFIBRILLATOR? NO . RESPIRATORY: HAVE YOU BEEN SICK IN THE PAST WEEK? NO . FEVER NO . FLU LIKE SYMPTOMS? NO . COUGH NO . INTEGUMENTARY: DO YOU HAVE ANY RASHES OR OPEN SORES? NO . ALLERGIC/IMMUNO: ARE YOU ALLERGIC TO SHELLFISH OR IV DYE? YES . ANY NEW ALLERGIES? NO . PSYCHIATRIC: DO YOU HAVE THOUGHTS OF HURTING YOURSELF OR SOMEONE ELSE? NO . ARE YOU ABUSED, NEGLECTED, OR IN AN UNSAFE ENVIRONMENT? NO . ENDOCRINOLOGY: ARE YOU DIABETIC? NO . OTHER: DO YOU NEED ANY PRESCRIPTIONS? YES . IF YES, PLEASE LIST: OXYCONTIN, LYRICA, HYDROCODONE . ANY NEW PROBLEMS WITH YOUR MEDICATIONS? NO . WHEN DID YOU LAST EAT? ____ . WHEN DID YOU LAST DRINK? ____ . WHAT DID YOU LAST DRINK? ____ . NAME OF PERSON DRIVING YOU HOME? ____ . DO YOU HAVE ANY OTHER QUESTIONS OR CONCERNS NO . VITAL SIGNS WT 178 LBS, HT 66 IN, BMI 28.73 INDEX, BP 113/68 MM HG, HR 74 /MIN, RR 16 /MIN, TEMP 98 F, OXYGEN SAT % 96%, NA INITIALS AW 0928, REVIEWED BY: NL. EXAMINATION GENERAL EXAMINATION: LUNGS:LUNG SOUNDS ARE CLEAR. HEART:HEART RATE REGULAR. MUSCULOSKELETAL:*, MUSCLE STRENGTH TESTING 3/5 BILAT.PALPATION: POSITIVE FOR PAIN OVER L/S SPINE. POSITIVE FOR PAIN OVER L/S PARASPINALS.. ASSESSMENTS BILATERAL LOW BACK PAIN, WITH SCIATICA PRESENCE UNSPECIFIED - M54.5 (PRIMARY) BILATERAL HIP PAIN - M25.551 CHRONIC PRESCRIPTION OPIATE USE - Z79.899 AVASCULAR NECROSIS OF BONES OF BOTH HIPS - M87.051 TREATMENT BILATERAL LOW BACK PAIN, WITH SCIATICA PRESENCE UNSPECIFIED REFILL HYDROCODONE-ACETAMINOPHEN TABLET, 10-325 MG, 1/2 -1 TAB, ORALLY, Q6H MDD4 NEEDED, 30 DAY(S), 120, REFILLS 0 REFILL OXYCONTIN TABLET ER 12 HOUR ABUSE-DETERRENT, 15 MG, 1 TABLET, ORALLY, BID MDD2, 30 DAY(S), 60, REFILLS 0 REFILL LYRICA CAPSULE, 200 MG, 1 TAB, ORALLY, 3 TIMES A DAY, 30 DAY(S), 90 TABLET, REFILLS 2 NOTES: ISTOP REGISTRY REVIEWED AND DEMNOSTRATES COMPLLIANCE. BRINGS IN MEDICATIONS WHICH IS APPROPRIATE FOR WHAT WAS DISPENSED. RECENT URINE TOXICOLOGY REVIEWED. NO UNAUTHORIZED MEDICATIONS. NO ILLICIT SUBSTANCES AND PRESCRIBED MEDICATIONS WERE PRESENT. , RISKS AND BENEFITS OF NARCOTIC/OPIOD MEDICATIONS WERE REVIEWED WITH PATIENT - THIS INCLUDES BUT IS NOT LIMITED TO RISK OF DEPENDANCE/DEVELOPMENT OF ADDICTION, MOOD DISTURBANCE AND DEPRESSION, OSTEOPOROSIS, HORMONAL AND LABIDAL CHANGES, RESPIRATORY DEPRESSION AND . PATIENT IS ADVISED NOT TO DRIVE WHILE ON THESE MEDICATIONS. PROCEDURE CODES G8730 PAIN ASSESS POS TOOL F/U PLAN DOC G8427 DOC MEDS VERIFIED W/PT OR RE DISPOSITION & COMMUNICATION FOLLOW UP 2 MONTHS ELECTRONICALLY SIGNED BY ALBERT SINGH ON 11/21/2016 AT 09:57 AM EDT DISCLAIMER : THIS IS A VISIT SUMMARY EXTRACTED FROM THE [employer] CHART. IT IS NOT A COPY OF THE [employer] PROGRESS NOTE. ELIGIO
== END ==
LOC: M PAIN 09:00
PROVIDERS: ATTEND Nurse Practitioner Family
DX: G89.29 Other chronic pain (principal); M54.5 Low back pain; M25.551 Pain in right hip; M87.051 Idiopathic aseptic necrosis of right femur; G43.909 Migraine, unspecified, not intractable, without status migrainosus; F43.10 Post-traumatic stress disorder, unspecified; F41.9 Anxiety disorder, unspecified; F32.9 Major depressive disorder, single episode, unspecified; M19.90 Unspecified osteoarthritis, unspecified site; Z88.3 Allergy status to other anti-infective agents; Z91.040 Latex allergy status; Z91.041 Radiographic dye allergy status; Z91.013 Allergy to seafood; Z79.891 Long term (current) use of opiate analgesic; Z79.899 Other long term (current) drug therapy

== ENCOUNTER → 2017-04-23 | Outpatient (CLI) | payer MEDICARE, OTHER | LOC: M PAIN 10:00 | DX: G89.29 Other chronic pain (principal); M54.5 Low back pain; M25.551 Pain in right hip; M87.051 Idiopathic aseptic necrosis of right femur; G43.909 Migraine, unspecified, not intractable, without status migrainosus; F43.10 Post-traumatic stress disorder, unspecified; F41.9 Anxiety disorder, unspecified; F32.9 Major depressive disorder, single episode, unspecified; M19.90 Unspecified osteoarthritis, unspecified site; Z79.891 Long term (current) use of opiate analgesic; Z79.899 Other long term (current) drug therapy; Z88.1 Allergy status to other antibiotic agents; Z91.040 Latex allergy status; Z91.041 Radiographic dye allergy status; Z91.013 Allergy to seafood; Z98.84 Bariatric surgery status; Z85.71 Personal history of Hodgkin lymphoma; Z87.891 Personal history of nicotine dependence | CPT/HCPCS: G0463 ==

== ENCOUNTER → 2017-08-22 | Outpatient (CLI) | payer MEDICARE, OTHER | LOC: M PAIN 10:15 | DX: G89.29 Other chronic pain (principal); M54.5 Low back pain; G43.909 Migraine, unspecified, not intractable, without status migrainosus; F43.10 Post-traumatic stress disorder, unspecified; F41.9 Anxiety disorder, unspecified; F32.9 Major depressive disorder, single episode, unspecified; M19.90 Unspecified osteoarthritis, unspecified site; Z98.84 Bariatric surgery status; Z87.891 Personal history of nicotine dependence; Z91.040 Latex allergy status; Z91.013 Allergy to seafood; Z91.041 Radiographic dye allergy status; Z88.8 Allergy status to other drugs, medicaments and biological substances; M87.051 Idiopathic aseptic necrosis of right femur; M87.052 Idiopathic aseptic necrosis of left femur; M87.062 Idiopathic aseptic necrosis of left tibia | CPT/HCPCS: G0463 ==

== ENCOUNTER → 2017-11-13 | Outpatient (CLI) | payer MEDICARE, OTHER | LOC: M PAIN 09:45 | DX: M54.5 Low back pain (principal); M87.052 Idiopathic aseptic necrosis of left femur; M87.051 Idiopathic aseptic necrosis of right femur; F17.210 Nicotine dependence, cigarettes, uncomplicated; Z79.891 Long term (current) use of opiate analgesic; Z79.899 Other long term (current) drug therapy; Z98.84 Bariatric surgery status; Z88.2 Allergy status to sulfonamides; Z91.040 Latex allergy status; Z91.041 Radiographic dye allergy status; Z91.013 Allergy to seafood | CPT/HCPCS: G0463 ==

== ENCOUNTER → 2018-01-13 | Outpatient (CLI) | payer MEDICARE, OTHER, MEDICAID | LOC: M PAIN 09:30 | DX: M54.5 Low back pain (principal); M87.052 Idiopathic aseptic necrosis of left femur; M87.051 Idiopathic aseptic necrosis of right femur; G43.909 Migraine, unspecified, not intractable, without status migrainosus; F43.10 Post-traumatic stress disorder, unspecified; F41.9 Anxiety disorder, unspecified; F32.9 Major depressive disorder, single episode, unspecified; Z79.891 Long term (current) use of opiate analgesic; Z79.899 Other long term (current) drug therapy; F17.210 Nicotine dependence, cigarettes, uncomplicated; Z91.040 Latex allergy status; Z88.8 Allergy status to other drugs, medicaments and biological substances; Z91.013 Allergy to seafood; Z91.041 Radiographic dye allergy status; Z85.79 Personal history of other malignant neoplasms of lymphoid, hematopoietic and related tissues | CPT/HCPCS: G0463 ==

== ENCOUNTER → 2018-03-17 | Outpatient (CLI) | payer MEDICARE, OTHER ==
[~2018-03-17] MED LIST changes: -CHAN0.5P2 PO; +CHAN0.5P3 PO; +CLON0.5T8 PO; -LAMO200T PO; +LAMO200T2 PO; +TIZA2CAP PO; -TIZA2CAP3 PO
--- NOTE | 2018-04-10 01:21 | ECWPNPC ---
PATIENT NAME: TORY TIRADO : 1975 GENDER: FEMALE VISIT DATE: 03/17/2018 DISCHARGE DATE: 03/17/18 1220 VISIT LOCKED DATE TIME: PHYSICIAN: PATRIZIA WILLAMS RESOURCE: PATRIZIA WILLAMS REASON FOR APPOINTMENT 1. CHRONIC PAIN HISTORY OF PRESENT ILLNESS DEPRESSION SCREENING: PHQ-2 IN LAST TWO WEEKS HAVE YOU BEEN BOTHERED BY LITTLE INTEREST OR PLEASURE IN DOING THINGSNO FEELING DOWN, DEPRESSED, OR HOPELESSNO HISTORY OF PRESENT ILLNESS: PAIN THE PATIENT DESCRIBES THE PAIN... THE PATIENT DESCRIBES THE PAIN... THE PATIENT DESCRIBES THE PAIN... THE PATIENT DESCRIBES THE PAIN... THE PATIENT DESCRIBES THE PAIN... THE PATIENT DESCRIBES THE PAIN... THE PATIENT DESCRIBES THE PAIN... THE PATIENT DESCRIBES THE PAIN... THE PATIENT DESCRIBES THE PAIN... THE PATIENT DESCRIBES THE PAIN... THE PATIENT DESCRIBES THE PAIN... HERE FOR F/U AND MANAGEMENT OF CHRONIC LOW BACK PAIN AND BILATERAL HIP PAIN.HX OF AVASCULAR NECROSIS BILAT. HIPS.RATING PAIN VAS 9/10.CURRENTLY USING OXYCONTIN 15MG BID,HYDROCODONE 10/325 Q8H PRN MDD3 AND LYRICA 200MG TID.FINDS CURRENT MEDICINE HELPFUL AT REDUCING PAIN AND KEEPING HER COMFORTABLE.MEDICALLY RETIRED 100%.DESCRIBES PAIN CONSTANT ACHING AND SORE.PAIN IS AGGREVATED BY COLD WEATHER AND RAIN. FALL RISK SCREENING: SCREENING :NO FALLS IN THE PAST YEAR CURRENT MEDICATIONS TAKING BOTOX 200 UNIT SOLUTION RECONSTITUTED INJECTION Q 3MOS TAKING FUSION 65-65-25-30 MG 4 ORALLY DAILY TAKING GUMMI BEAR MULTIVITAMIN/MIN - TABLET CHEWABLE 2 ORALLY DAILY TAKING LIDODERM 5 % PATCH 1 PATCH TO INTACT SKIN REMOVE AFTER 12 HOURS EXTERNALLY ONCE A DAY NEEDED TAKING TIZANIDINE HCL 2 MG TABLET 1 TABLET NEEDED ORALLY THREE TIMES A DAY TAKING LYRICA 200 MG CAPSULE 1 TAB ORALLY 3 TIMES A DAY TAKING OXYCONTIN 15 MG TABLET ER 12 HOUR ABUSE-DETERRENT 1 TABLET ORALLY BID MDD2 TAKING HYDROCODONE-ACETAMINOPHEN 10-325 MG TABLET 1/2 -1 TAB ORALLY Q6H MDD4 NEEDED NOT-TAKING PAXIL 10 MG TABLET 1 TABLET IN THE MORNING ORALLY ONCE A DAY NOT-TAKING LEXAPRO 10 MG TABLET 1 TABLET ORALLY ONCE A DAY NOT-TAKING ADDERALL XR 20 MG CAPSULE EXTENDED RELEASE 24 HOUR 1 CAPSULE IN THE MORNING ORALLY ONCE A DAY NOT-TAKING OMEPRAZOLE 20 MG CAPSULE DELAYED RELEASE 2 CAPSULES ORALLY ONCE A DAY NOT-TAKING RANITIDINE HCL 75 MG TABLET 2 TABLETS ORALLY AT BEDTIME MEDICATION LIST REVIEWED AND RECONCILED WITH THE PATIENT PAST MEDICAL HISTORY MIGRIANES VOCAL CORD POLYPS PTSD ANXIETY/DEPRESSION HODGKINS LYMPHOMA CHRONIC PAIN 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 COUNSELED THE PATIENT ON TOBACCO USE, CESSATION [id number]/10/2018 HOW MANY CIGARETTES A DAY DO YOU SMOKE?5 OR LESS HOW SOON AFTER YOU WAKE UP DO YOU SMOKE YOUR FIRST CIGARETTE?AFTER 60 MIN HOW OFTEN DO YOU SMOKE CIGARETTES?SOME DAYS, BUT NOT EVERY DAY PATIENT COUNSELED ON THE DANGERS OF TOBACCO USE AND URGED TO QUIT:03/17/2018 SMOKING CESSATION INFORMATION GIVEN11/13/2017 RECREATIONAL DRUG USE DRUG USE?NO YAZIDISM [id number] ADVENTISM LANGUAGE LANGUAGES SPOKEN:[place] LEARNING BARRIERS / SPECIAL NEEDS BARRIERS TO LEARNING?NO READINESS TO LEARN?YES LEARNING PREFERENCES?NO LEARNING CAPABILITIES PRESENT?YES PAIN CLINIC PFS, CLERGY, PUBLIC HEALTH REFERRALS PFS REFERRAL NEEDED?NO CLERGY REFERRAL NEEDED?NO PUBLIC HEALTH REFERRAL NEEDED?NO WAS THE PROVIDER NOTIFIED OF ANY PERTINENT INFO?NO HAS THE PATIENT BEEN EDUCATED REGARDING HIS/HER PLAN OF CARE?YES HAS THE PATIENT BEEN EDUCATED REGARDING PAIN, THE RISK FOR PAIN, THE IMPORTANCE OF EFFECTIVE PAIN MANAGEMENT, AND THE PAIN ASSESSMENT PROCESS?YES ADVANCE DIRECTIVE ADVANCE DIRECTIVE DISCUSSED WITH PATIENT:YES DECLINED INFORMATION REVIEWED WITH PATIENT 01/13/18 0951 JS. HOSPITALIZATION/MAJOR DIAGNOSTIC PROCEDURE BULIMIA REVIEW OF SYSTEMS REVIEWED BY: PROVIDER: PATRIZIA PRICE . CONSTITUTIONAL: ANY CHANGE IN YOUR MEDICAL CONDITION? NO . CHILLS NO . FEVER NO . INFECTION: DO YOU HAVE NEW INFECTIONS? NO . DO YOU HAVE HISTORY OF MRSA? NO . MUSCULOSKELETAL: ANY NEW PATTERNS OF PAIN OR NUMBNESS? YES, RIGHT KNEE PAIN X 5 DAYS AFTER DRIVING ALL DAY . GASTROENTEROLOGY: ANY NEW CHANGE IN BOWEL CONTROL? NO . GENITOURINARY: ANY NEW CHANGE IN BLADDER CONTROL? NO . IS THERE A CHANCE YOU COULD BE ? NO . HEMATOLOGY/LYMPH: DO YOU TAKE ANY BLOOD THINNERS? (FOR EXAMPLE- COUMADIN, PLAVIX, AGGRENOX, PLATEL, PRADAXA, OR XARELTO) NO . WHEN WAS YOUR LAST DOSE? DATE: TIME: . NEUROLOGY: HAVE YOU FALLEN IN THE PAST 6 MONTHS? NO . ANY NEW EXTREMITY NUMBNESS OR WEAKNESS? NO . CARDIOLOGY: DO YOU HAVE A PACEMAKER OR DEFIBRILLATOR? NO . RESPIRATORY: HAVE YOU BEEN SICK IN THE PAST WEEK? NO . FEVER NO . FLU LIKE SYMPTOMS? NO . COUGH NO . INTEGUMENTARY: DO YOU HAVE ANY RASHES OR OPEN SORES? NO . ALLERGIC/IMMUNO: ARE YOU ALLERGIC TO SHELLFISH OR IV DYE? YES, CT DYE . ANY NEW ALLERGIES? NO . PSYCHIATRIC: DO YOU HAVE THOUGHTS OF HURTING YOURSELF OR SOMEONE ELSE? NO . ARE YOU ABUSED, NEGLECTED, OR IN AN UNSAFE ENVIRONMENT? NO . ENDOCRINOLOGY: ARE YOU DIABETIC? NO . OTHER: DO YOU NEED ANY PRESCRIPTIONS? YES, LYRICA, NORCO . IF YES, PLEASE LIST: ____ . ANY NEW PROBLEMS WITH YOUR MEDICATIONS? NO . WHEN DID YOU LAST EAT? ____ . WHEN DID YOU LAST DRINK? ____ . WHAT DID YOU LAST DRINK? ____ . NAME OF PERSON DRIVING YOU HOME? ____ . DO YOU HAVE ANY OTHER QUESTIONS OR CONCERNS NO . VITAL SIGNS WT 172.8 LBS, HT 66 IN, BMI 27.89 INDEX, BP 119/66 MM HG, HR 70 /MIN, RR 16 /MIN, TEMP 99%, OXYGEN SAT % 99%, NA INITIALS AW 1146, REVIEWED BY: EM. EXAMINATION GENERAL EXAMINATION: LUNGS:LUNG SOUNDS ARE CLEAR. HEART:HEART RATE REGULAR. MUSCULOSKELETAL:*, MUSCLE STRENGTH TESTING 3/5 BILAT.PALPATION: POSITIVE FOR PAIN OVER L/S SPINE. POSITIVE FOR PAIN OVER L/S PARASPINALS.. 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 (REF #[id number] ) BRINGS IN MEDICATIONS WHICH IS APPROPRIATE FOR WHAT WAS DISPENSED. RECENT URINE TOXICOLOGY REVIEWED. NO UNAUTHORIZED MEDICATIONS. NO ILLICIT SUBSTANCES AND PRESCRIBED MEDICATIONS WERE PRESENT. , RISKS AND BENEFITS OF NARCOTIC/OPIOD MEDICATIONS WERE REVIEWED WITH PATIENT - THIS INCLUDES BUT IS NOT LIMITED TO RISK OF DEPENDANCE/DEVELOPMENT OF ADDICTION, MOOD DISTURBANCE AND DEPRESSION, OSTEOPOROSIS, HORMONAL AND LABIDAL CHANGES, RESPIRATORY DEPRESSION AND . PATIENT IS ADVISED NOT TO DRIVE OR DRINK ALCOHOL WHILE ON THESE MEDICATIONS. PROCEDURE CODES FA211 ESTABILISHED PATIENT [facility] CHARGE DISPOSITION & COMMUNICATION FOLLOW UP 3 MONTHS ELECTRONICALLY SIGNED BY ALBERT BRITTON ON 04/09/2018 AT 01:44 PM EST DISCLAIMER : THIS IS A VISIT SUMMARY EXTRACTED FROM THE [employer] CHART. IT IS NOT A COPY OF THE [employer] PROGRESS NOTE. ELIGIO
== END ==
LOC: M PAIN 11:30
PROVIDERS: ATTEND Nurse Practitioner Family
DX: G89.29 Other chronic pain (principal); M54.5 Low back pain; M87.052 Idiopathic aseptic necrosis of left femur; M87.051 Idiopathic aseptic necrosis of right femur; G43.909 Migraine, unspecified, not intractable, without status migrainosus; F43.10 Post-traumatic stress disorder, unspecified; F41.9 Anxiety disorder, unspecified; F17.210 Nicotine dependence, cigarettes, uncomplicated; F32.9 Major depressive disorder, single episode, unspecified; M19.90 Unspecified osteoarthritis, unspecified site; Z98.84 Bariatric surgery status; Z79.891 Long term (current) use of opiate analgesic; Z79.899 Other long term (current) drug therapy; Z91.040 Latex allergy status; Z91.041 Radiographic dye allergy status; Z91.013 Allergy to seafood; Z88.8 Allergy status to other drugs, medicaments and biological substances

== ENCOUNTER → 2018-06-16 | Outpatient (CLI) | payer MEDICARE, OTHER ==
--- NOTE | 2018-07-02 01:58 | ECWPNPC ---
PATIENT NAME: TORY TIRADO : 1975 GENDER: FEMALE VISIT DATE: 06/16/2018 DISCHARGE DATE: 06/16/18 1038 VISIT LOCKED DATE TIME: PHYSICIAN: PATRIZIA WILLAMS RESOURCE: PATRIZIA WILLAMS REASON FOR APPOINTMENT 1. CHRONIC PAIN HISTORY OF PRESENT ILLNESS HISTORY OF PRESENT ILLNESS: PAIN THE PATIENT DESCRIBES THE PAIN... THE PATIENT DESCRIBES THE PAIN... THE PATIENT DESCRIBES THE PAIN... THE PATIENT DESCRIBES THE PAIN... THE PATIENT DESCRIBES THE PAIN... THE PATIENT DESCRIBES THE PAIN... THE PATIENT DESCRIBES THE PAIN... THE PATIENT DESCRIBES THE PAIN... THE PATIENT DESCRIBES THE PAIN... THE PATIENT DESCRIBES THE PAIN... THE PATIENT DESCRIBES THE PAIN... THE PATIENT DESCRIBES THE PAIN... HERE FOR F/U AND MANAGEMENT OF CHRONIC LOW BACK PAIN AND BILATERAL HIP PAIN.HX OF AVASCULAR NECROSIS BILAT. HIPS.HAS BEEN HAVING LOW BACK PAIN PERIODICALLY OVER THE PAST 2 MONTHS THAT AT TIMES MAKES HER BEDRIDDEN.HAS BEEN DOING HOME STRETCHING AND CBD CREAM THAT IS SOMEWHAT HELPFUL.RATING PAIN VAS 8/10.CURRENTLY USING OXYCONTIN 15MG BID,HYDROCODONE 10/325 Q8H PRN MDD3 AND LYRICA 200MG TID.FINDS CURRENT MEDICINE HELPFUL AT REDUCING PAIN AND KEEPING HER COMFORTABLE.MEDICALLY RETIRED 100%.DESCRIBES PAIN CONSTANT ACHING AND SORE.PAIN IS AGGREVATED BY COLD WEATHER AND RAIN. FALL RISK SCREENING: SCREENING : NO FALLS IN THE PAST YEAR. CURRENT MEDICATIONS TAKING BOTOX 200 UNIT SOLUTION RECONSTITUTED INJECTION Q 3MOS TAKING FUSION 65-65-25-30 MG 4 ORALLY DAILY TAKING LIDODERM 5 % PATCH 1 PATCH TO INTACT SKIN REMOVE AFTER 12 HOURS EXTERNALLY ONCE A DAY NEEDED TAKING TIZANIDINE HCL 2 MG TABLET 1 TABLET NEEDED ORALLY THREE TIMES A DAY TAKING LYRICA 200 MG CAPSULE 1 TAB ORALLY 3 TIMES A DAY TAKING OXYCONTIN 15 MG TABLET ER 12 HOUR ABUSE-DETERRENT 1 TABLET ORALLY BID MDD2 TAKING HYDROCODONE-ACETAMINOPHEN 10-325 MG TABLET 1/2 -1 TAB ORALLY Q6H MDD4 NEEDED TAKING TYLENOL ORAL PRN NOT-TAKING GUMMI BEAR MULTIVITAMIN/MIN - TABLET CHEWABLE 2 ORALLY DAILY NOT-TAKING PAXIL 10 MG TABLET 1 TABLET IN THE MORNING ORALLY ONCE A DAY NOT-TAKING LEXAPRO 10 MG TABLET 1 TABLET ORALLY ONCE A DAY NOT-TAKING ADDERALL XR 20 MG CAPSULE EXTENDED RELEASE 24 HOUR 1 CAPSULE IN THE MORNING ORALLY ONCE A DAY NOT-TAKING OMEPRAZOLE 20 MG CAPSULE DELAYED RELEASE 2 CAPSULES ORALLY ONCE A DAY NOT-TAKING RANITIDINE HCL 75 MG TABLET 2 TABLETS ORALLY AT BEDTIME MEDICATION LIST REVIEWED AND RECONCILED WITH THE PATIENT PAST MEDICAL HISTORY MIGRIANES VOCAL CORD POLYPS PTSD ANXIETY/DEPRESSION HODGKINS LYMPHOMA CHRONIC PAIN 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 MOM-THYROID CADAD-EMPHYSEMA. SOCIAL HISTORY GENERAL: TOBACCO USE ARE YOU A:CURRENT SMOKER ARE YOU INTERESTED IN QUITTING?THINKING ABOUT QUITTING COUNSELED THE PATIENT ON SMOKING CESSATION, EDUCATION [id number]/11/2019 HOW MANY CIGARETTES A DAY DO YOU SMOKE?5 OR LESS HOW SOON AFTER YOU WAKE UP DO YOU SMOKE YOUR FIRST CIGARETTE?AFTER 60 MIN HOW OFTEN DO YOU SMOKE CIGARETTES?SOME DAYS, BUT NOT EVERY DAY PATIENT COUNSELED ON THE DANGERS OF TOBACCO USE AND URGED TO QUIT:03/17/2018 SMOKING CESSATION INFORMATION GIVEN11/13/2017 RECREATIONAL DRUG USE DRUG USE?NO LUTHERAN [id number] RESTORATIONIST LANGUAGE LANGUAGES SPOKEN:SYRIAC LEARNING BARRIERS / SPECIAL NEEDS BARRIERS TO LEARNING?NO READINESS TO LEARN?YES LEARNING PREFERENCES?NO LEARNING CAPABILITIES PRESENT?YES PAIN CLINIC PFS, CLERGY, PUBLIC HEALTH REFERRALS PFS REFERRAL NEEDED?NO CLERGY REFERRAL NEEDED?NO PUBLIC HEALTH REFERRAL NEEDED?NO WAS THE PROVIDER NOTIFIED OF ANY PERTINENT INFO?NO HAS THE PATIENT BEEN EDUCATED REGARDING HIS/HER PLAN OF CARE?YES HAS THE PATIENT BEEN EDUCATED REGARDING PAIN, THE RISK FOR PAIN, THE IMPORTANCE OF EFFECTIVE PAIN MANAGEMENT, AND THE PAIN ASSESSMENT PROCESS?YES ADVANCE DIRECTIVE ADVANCE DIRECTIVE DISCUSSED WITH PATIENT:YES DECLINED INFORMATION REVIEWED WITH PATIENT 01/13/18 0982 JS. HOSPITALIZATION/MAJOR DIAGNOSTIC PROCEDURE BULIMIA REVIEW OF SYSTEMS REVIEWED BY: PROVIDER: PATRIZIA PRICE . CONSTITUTIONAL: ANY CHANGE IN YOUR MEDICAL CONDITION? NO . CHILLS NO . FEVER NO . INFECTION: DO YOU HAVE NEW INFECTIONS? NO . DO YOU HAVE HISTORY OF MRSA? NO . MUSCULOSKELETAL: ANY NEW PATTERNS OF PAIN OR NUMBNESS? NO . GASTROENTEROLOGY: ANY NEW CHANGE IN BOWEL CONTROL? NO . GENITOURINARY: ANY NEW CHANGE IN BLADDER CONTROL? NO . IS THERE A CHANCE YOU COULD BE ? NO . HEMATOLOGY/LYMPH: DO YOU TAKE ANY BLOOD THINNERS? (FOR EXAMPLE- COUMADIN, PLAVIX, AGGRENOX, PLATEL, PRADAXA, OR XARELTO) NO . WHEN WAS YOUR LAST DOSE? DATE: TIME: . NEUROLOGY: HAVE YOU FALLEN IN THE PAST 12 MONTHS? NO . ANY NEW EXTREMITY NUMBNESS OR WEAKNESS? NO . CARDIOLOGY: DO YOU HAVE A PACEMAKER OR DEFIBRILLATOR? NO . RESPIRATORY: HAVE YOU BEEN SICK IN THE PAST WEEK? NO . FEVER NO . FLU LIKE SYMPTOMS? NO . COUGH NO . INTEGUMENTARY: DO YOU HAVE ANY RASHES OR OPEN SORES? NO . ALLERGIC/IMMUNO: ARE YOU ALLERGIC TO IV DYE? YES . ANY NEW ALLERGIES? NO . PSYCHIATRIC: DO YOU HAVE THOUGHTS OF HURTING YOURSELF OR SOMEONE ELSE? NO . ARE YOU ABUSED, NEGLECTED, OR IN AN UNSAFE ENVIRONMENT? NO . ENDOCRINOLOGY: ARE YOU DIABETIC? NO . OTHER: DO YOU NEED ANY PRESCRIPTIONS? YES, HYDROCODONE, OXYCONTIN, LYRICA, LIDO PATCH . IF YES, PLEASE LIST: ____ . ANY NEW PROBLEMS WITH YOUR MEDICATIONS? NO . WHEN DID YOU LAST EAT? ____ . WHEN DID YOU LAST DRINK? ____ . WHAT DID YOU LAST DRINK? ____ . NAME OF PERSON DRIVING YOU HOME? ____ . DO YOU HAVE ANY OTHER QUESTIONS OR CONCERNS NO . VITAL SIGNS WT 182.8 LBS, HT 66 IN, BMI 29.50 INDEX, BP 141/72 MM HG, HR 75 /MIN, RR 16 /MIN, TEMP 100%, NA INITIALS SC 09:47, REVIEWED BY: EM. EXAMINATION GENERAL EXAMINATION: LUNGS:LUNG SOUNDS ARE CLEAR. HEART:HEART RATE REGULAR. MUSCULOSKELETAL:*, MUSCLE STRENGTH TESTING 3/5 BILAT.PALPATION: POSITIVE FOR PAIN OVER L/S SPINE. POSITIVE FOR PAIN OVER L/S PARASPINALS.. ASSESSMENTS BILATERAL LOW BACK PAIN, WITH SCIATICA PRESENCE UNSPECIFIED - M54.5 (PRIMARY) AVASCULAR NECROSIS OF BONES OF BOTH HIPS - M87.051 CHRONIC PRESCRIPTION OPIATE USE - Z79.899 TREATMENT BILATERAL LOW BACK PAIN, WITH SCIATICA PRESENCE UNSPECIFIED [facility] MRI SPINE, L.S. WITHOUT [id number] NOTES: ISTOP REGISTRY REVIEWED AND DEMONSTRATES COMPLLIANCE. BRINGS IN MEDICATIONS WHICH IS APPROPRIATE FOR WHAT WAS DISPENSED. RECENT URINE TOXICOLOGY REVIEWED. NO UNAUTHORIZED MEDICATIONS. NO ILLICIT SUBSTANCES AND PRESCRIBED MEDICATIONS WERE PRESENT. URINE TOX TODAY, RISKS AND BENEFITS OF NARCOTIC/OPIOD MEDICATIONS WERE REVIEWED WITH PATIENT - THIS INCLUDES BUT IS NOT LIMITED TO RISK OF DEPENDANCE/DEVELOPMENT OF ADDICTION, MOOD DISTURBANCE AND DEPRESSION, OSTEOPOROSIS, HORMONAL AND LABIDAL CHANGES, RESPIRATORY DEPRESSION AND . PATIENT IS ADVISED NOT TO DRIVE OR DRINK ALCOHOL WHILE ON THESE MEDICATIONS, [facility] NARCOTIC AGREEMENT WAS REVIEWED UPDATEDAND SIGNED TODAY BY THE PATIENT. SEE ATTACHED DOCUMENT FOR FULL DETAILS; SPECIFIC ISSUES WERE REVIEWED: 1) KEEP PAIN MEDS IN THEIR ORIGINAL BOTTLES AND ANY WEEKLY PLANNERS ARE TO BE BROUGHT TO THE PAIN CENTER AT EVERY VISIT. 2) THE PATIENT IS NOT TO INCREASE DOSING OR TIMING OF THEIR PAIN MEDICATION WITHOUT SPECIFIC DIRECTION OF THEIR PAIN CENTERPROVIDER (NOT ER OR OTHER PROVIDERS). 3) ALL PAIN MEDS ARE TO BE KEPT SECURED, IN A LOCKED BOX. 4) NO PAIN MEDS ARE TO BE SHARED WITH ANY OTHER PERSON FOR ANY REASON. 5) NO PAIN MEDS MAY BE TAKEN FROM ANY FRIENDS OR RELATIVES FOR ANY REASON 6) NO MEDS OR SUBSTANCES WHICH ARE NOT LEGAL ARE TO BE USED- NO MARIJUANA, NO COCAINE, AMPHETAMINES, HEROIN, OR OTHERS ARE EVER TO BE USED. 7)URINE TESTING IS DONE TO ACCOUNT FOR MEDS AND SUBSTANCES BEING TAKEN AND WILL BE DONE RANDOMLY.. PROCEDURE CODES FA211 ESTABILISHED PATIENT [facility] FACILITY CHARGE DISPOSITION & COMMUNICATION FOLLOW UP 3 MONTHS ELECTRONICALLY SIGNED BY ALBERT BRITTON ON 06/30/2018 AT 04:25 PM EDT DISCLAIMER : THIS IS A VISIT SUMMARY EXTRACTED FROM THE [employer] CHART. IT IS NOT A COPY OF THE [employer] PPEC PROGRESS NOTE. ELIGIO
== END ==
LOC: M PAIN 10:30
PROVIDERS: ATTEND Nurse Practitioner Family
DX: M54.5 Low back pain (principal); G89.29 Other chronic pain; M87.051 Idiopathic aseptic necrosis of right femur; G43.909 Migraine, unspecified, not intractable, without status migrainosus; Z86.59 Personal history of other mental and behavioral disorders; M19.90 Unspecified osteoarthritis, unspecified site; F17.210 Nicotine dependence, cigarettes, uncomplicated; Z79.891 Long term (current) use of opiate analgesic; Z79.899 Other long term (current) drug therapy; Z88.1 Allergy status to other antibiotic agents; Z91.040 Latex allergy status; Z91.041 Radiographic dye allergy status; Z91.013 Allergy to seafood; Z85.71 Personal history of Hodgkin lymphoma; Z98.84 Bariatric surgery status

== ENCOUNTER → 2018-09-15 | Outpatient (CLI) | payer MEDICARE, OTHER ==
[~2018-09-15] MED LIST changes: -/LAMO10TA PO; -/LAMO20TA PO; -/MELO7TA PO; -ACET50TA PO; +LAMI1TAB7 PO; +LAMI1TAB9 PO; +MAPA500T17 PO; +MOBI4TAB PO
--- NOTE | 2018-10-01 01:59 | ECWPNPC ---
PATIENT NAME: TORY TIRADO : 1975 GENDER: FEMALE VISIT DATE: 09/15/2018 DISCHARGE DATE: 09/15/18 1058 VISIT LOCKED DATE TIME: PHYSICIAN: PATRIZIA WILLAMS RESOURCE: PATRIZIA WILLAMS REASON FOR APPOINTMENT 1. CHRONIC PAIN HISTORY OF PRESENT ILLNESS HISTORY OF PRESENT ILLNESS: HERE FOR ROUTINE F/U AND MEDICINE MANAGEMENT OF CHRONIC LBP AND HIP PAIN.HX OF AVASCULAR NECROSIS BILAT. 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 PAIN THE PATIENT DESCRIBES THE PAIN... FALL RISK SCREENING: SCREENING :NO FALLS REPORTED IN THE LAST YEAR CURRENT MEDICATIONS TAKING BOTOX 200 UNIT SOLUTION RECONSTITUTED INJECTION Q 3MOS TAKING FUSION 65-65-25-30 MG 4 ORALLY DAILY TAKING LIDODERM 5 % PATCH 1 PATCH TO INTACT SKIN REMOVE AFTER 12 HOURS EXTERNALLY ONCE A DAY NEEDED TAKING TIZANIDINE HCL 2 MG TABLET 1 TABLET NEEDED ORALLY THREE TIMES A DAY TAKING LYRICA 200 MG CAPSULE 1 TAB ORALLY 3 TIMES A DAY TAKING TYLENOL ORAL PRN TAKING OXYCONTIN 15 MG TABLET ER 12 HOUR ABUSE-DETERRENT 1 TABLET ORALLY BID MDD2 TAKING HYDROCODONE-ACETAMINOPHEN 10-325 MG TABLET 1/2 -1 TAB ORALLY Q6H MDD4 NEEDED TAKING CHANTIX 0.5 MG TABLET 1 TABLET ORALLY BID TAKING ZOLOFT 100 MG TABLET 1 TABLET ORALLY ONCE A DAY NOT-TAKING GUMMI BEAR MULTIVITAMIN/MIN - TABLET CHEWABLE 2 ORALLY DAILY NOT-TAKING PAXIL 10 MG TABLET 1 TABLET IN THE MORNING ORALLY ONCE A DAY NOT-TAKING LEXAPRO 10 MG TABLET 1 TABLET ORALLY ONCE A DAY NOT-TAKING ADDERALL XR 20 MG CAPSULE EXTENDED RELEASE 24 HOUR 1 CAPSULE IN THE MORNING ORALLY ONCE A DAY NOT-TAKING OMEPRAZOLE 20 MG CAPSULE DELAYED RELEASE 2 CAPSULES ORALLY ONCE A DAY NOT-TAKING RANITIDINE HCL 75 MG TABLET 2 TABLETS ORALLY AT BEDTIME MEDICATION LIST REVIEWED AND RECONCILED WITH THE PATIENT PAST MEDICAL HISTORY MIGRIANES VOCAL CORD POLYPS PTSD ANXIETY/DEPRESSION HODGKINS LYMPHOMA CHRONIC PAIN 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 MOM-THYROID CADAD-EMPHYSEMA. SOCIAL HISTORY GENERAL: TOBACCO USE ARE YOU A:CURRENT SMOKER ARE YOU INTERESTED IN QUITTING?THINKING ABOUT QUITTING COUNSELED THE PATIENT ON SMOKING CESSATION, EDUCATION [id number]/11/2019 HOW MANY CIGARETTES A DAY DO YOU SMOKE?5 OR LESS HOW SOON AFTER YOU WAKE UP DO YOU SMOKE YOUR FIRST CIGARETTE?AFTER 60 MIN HOW OFTEN DO YOU SMOKE CIGARETTES?SOME DAYS, BUT NOT EVERY DAY PATIENT COUNSELED ON THE DANGERS OF TOBACCO USE AND URGED TO QUIT:03/17/2018 SMOKING CESSATION INFORMATION GIVEN11/13/2017 PAIN CLINIC PFS, CLERGY, PUBLIC HEALTH REFERRALS PFS REFERRAL NEEDED?NO CLERGY REFERRAL NEEDED?NO PUBLIC HEALTH REFERRAL NEEDED?NO WAS THE PROVIDER NOTIFIED OF ANY PERTINENT INFO?NO HAS THE PATIENT BEEN EDUCATED REGARDING HIS/HER PLAN OF CARE?YES HAS THE PATIENT BEEN EDUCATED REGARDING PAIN, THE RISK FOR PAIN, THE IMPORTANCE OF EFFECTIVE PAIN MANAGEMENT, AND THE PAIN ASSESSMENT PROCESS?YES LATEX QUESTIONNAIRE LATEX ALLERGY : HAVE YOU EVER DEVELOPED ANY TYPE OF REACTION AFTER HANDLING LATEX PRODUCTS SUCH RUBBER GLOVES, CONDOMS, DIAPHRAGMS, BALLOONS, SOCKS, OR UNDERWEAR?YES PT ALLERGIC TO LATEX DATE ASKED : 09/15/2018 ADVANCE DIRECTIVE ADVANCE DIRECTIVE DISCUSSED WITH PATIENT:YES DECLINED INFORMATION AND ASSISTANCE WTIH FORM AT THIS TIME. 09/15/18 FAITH [id number] PROTESTANT LANGUAGE LANGUAGES SPOKEN:BURKINAN RECREATIONAL DRUG USE DRUG USE?NO LEARNING BARRIERS / SPECIAL NEEDS BARRIERS TO LEARNING?NO READINESS TO LEARN?YES LEARNING PREFERENCES?NO LEARNING CAPABILITIES PRESENT?YES REVIEWED WITH PATIENT 01/13/18 0920 JSREVIEWED WITH PT 09/15/18 1023 BV. HOSPITALIZATION/MAJOR DIAGNOSTIC PROCEDURE BULIMIA REVIEW OF SYSTEMS REVIEWED BY: PROVIDER: PATRIZIA PRICE . CONSTITUTIONAL: ANY CHANGE IN YOUR MEDICAL CONDITION? NO . CHILLS NO . FEVER NO . INFECTION: DO YOU HAVE NEW INFECTIONS? NO . DO YOU HAVE HISTORY OF MRSA? NO . MUSCULOSKELETAL: ANY NEW PATTERNS OF PAIN OR NUMBNESS? NO . GASTROENTEROLOGY: ANY NEW CHANGE IN BOWEL CONTROL? NO . GENITOURINARY: ANY NEW CHANGE IN BLADDER CONTROL? NO . IS THERE A CHANCE YOU COULD BE ? NO . HEMATOLOGY/LYMPH: DO YOU TAKE ANY BLOOD THINNERS? (FOR EXAMPLE- COUMADIN, PLAVIX, AGGRENOX, PLATEL, PRADAXA, OR XARELTO) NO . WHEN WAS YOUR LAST DOSE? DATE: TIME: . NEUROLOGY: HAVE YOU FALLEN IN THE PAST 12 MONTHS? NO . ANY NEW EXTREMITY NUMBNESS OR WEAKNESS? NO . CARDIOLOGY: DO YOU HAVE A PACEMAKER OR DEFIBRILLATOR? NO . RESPIRATORY: HAVE YOU BEEN SICK IN THE PAST WEEK? NO . FEVER NO . FLU LIKE SYMPTOMS? NO . COUGH NO . INTEGUMENTARY: DO YOU HAVE ANY RASHES OR OPEN SORES? NO . ALLERGIC/IMMUNO: ARE YOU ALLERGIC TO IV DYE? YES . ANY NEW ALLERGIES? NO . PSYCHIATRIC: DO YOU HAVE THOUGHTS OF HURTING YOURSELF OR SOMEONE ELSE? NO . ARE YOU ABUSED, NEGLECTED, OR IN AN UNSAFE ENVIRONMENT? NO . ENDOCRINOLOGY: ARE YOU DIABETIC? NO . OTHER: DO YOU NEED ANY PRESCRIPTIONS? NO . IF YES, PLEASE LIST: ____ . ANY NEW PROBLEMS WITH YOUR MEDICATIONS? NO . WHEN DID YOU LAST EAT? ____ . WHEN DID YOU LAST DRINK? ____ . WHAT DID YOU LAST DRINK? ____ . NAME OF PERSON DRIVING YOU HOME? ____ . DO YOU HAVE ANY OTHER QUESTIONS OR CONCERNS NO . VITAL SIGNS WT 180 LBS, HT 66 IN, BMI 29.05 INDEX, BP 139/75 MM HG, HR 87 /MIN, RR 16 /MIN, TEMP 98 F, OXYGEN SAT % 97%, NA INITIALS AW 1019, REVIEWED BY: BV. EXAMINATION GENERAL EXAMINATION: LUNGS:LUNG SOUNDS ARE CLEAR. HEART:HEART RATE REGULAR. MUSCULOSKELETAL:*, MUSCLE STRENGTH TESTING 3/5 BILAT.PALPATION: POSITIVE FOR PAIN OVER L/S SPINE. POSITIVE FOR PAIN OVER L/S PARASPINALS.. ASSESSMENTS BILATERAL LOW BACK PAIN, WITH SCIATICA PRESENCE UNSPECIFIED - M54.5 (PRIMARY) TREATMENT BILATERAL LOW BACK PAIN, WITH SCIATICA PRESENCE UNSPECIFIED CONTINUE LIDODERM PATCH, 5 %, 1 PATCH TO INTACT SKIN REMOVE AFTER 12 HOURS, EXTERNALLY, ONCE A DAY NEEDED CONTINUE TIZANIDINE HCL TABLET, 2 MG, 1 TABLET NEEDED, ORALLY, THREE TIMES A DAY CONTINUE LYRICA CAPSULE, 200 MG, 1 TAB, ORALLY, 3 TIMES A DAY CONTINUE OXYCONTIN TABLET ER 12 HOUR ABUSE-DETERRENT, 15 MG, 1 TABLET, ORALLY, BID MDD2 CONTINUE HYDROCODONE-ACETAMINOPHEN TABLET, 10-325 MG, 1/2 -1 TAB, ORALLY, Q6H MDD4 NEEDED MRI: LUMBAR W/O [id number] NOTES: ISTOP REGISTRY REVIEWED AND DEMONSTRATES COMPLLIANCE. BRINGS IN MEDICATIONS WHICH IS APPROPRIATE FOR WHAT WAS DISPENSED. RECENT URINE TOXICOLOGY REVIEWED. NO UNAUTHORIZED MEDICATIONS. NO ILLICIT SUBSTANCES AND PRESCRIBED MEDICATIONS WERE PRESENT. , RISKS AND BENEFITS OF NARCOTIC/OPIOD MEDICATIONS WERE REVIEWED WITH PATIENT - THIS INCLUDES BUT IS NOT LIMITED TO RISK OF DEPENDANCE/DEVELOPMENT OF ADDICTION, MOOD DISTURBANCE AND DEPRESSION, OSTEOPOROSIS, HORMONAL AND LABIDAL CHANGES, RESPIRATORY DEPRESSION AND . PATIENT IS ADVISED NOT TO DRIVE OR DRINK ALCOHOL WHILE ON THESE MEDICATIONS. PROCEDURE CODES FA211 ESTABILISHED PATIENT [facility] CHARGE DISPOSITION & COMMUNICATION FOLLOW UP 2 MONTHS ELECTRONICALLY SIGNED BY ALBERT BRITTON ON 09/30/2018 AT 08:58 AM EDT DISCLAIMER : THIS IS A VISIT SUMMARY EXTRACTED FROM THE [employer] CHART. IT IS NOT A COPY OF THE [employer] PROGRESS NOTE. ELIGIO
== END ==
LOC: M PAIN 10:30
PROVIDERS: ATTEND Nurse Practitioner Family
DX: M54.5 Low back pain (principal); G89.29 Other chronic pain; G43.909 Migraine, unspecified, not intractable, without status migrainosus; Z86.59 Personal history of other mental and behavioral disorders; M19.90 Unspecified osteoarthritis, unspecified site; Z98.84 Bariatric surgery status; F17.210 Nicotine dependence, cigarettes, uncomplicated; Z88.3 Allergy status to other anti-infective agents; Z91.013 Allergy to seafood; Z91.040 Latex allergy status; Z91.041 Radiographic dye allergy status; Z79.891 Long term (current) use of opiate analgesic; Z79.899 Other long term (current) drug therapy

== ENCOUNTER → 2018-12-12 | Outpatient (CLI) | payer MEDICARE, OTHER ==
--- NOTE | 2018-12-25 01:48 | ECWPNPC ---
PATIENT NAME: TORY TIRADO : 1975 GENDER: FEMALE VISIT DATE: 12/12/2018 DISCHARGE DATE: 12/12/18 1150 VISIT LOCKED DATE TIME: PHYSICIAN: PATRIZIA WILLAMS RESOURCE: PATRIZIA WILLAMS REASON FOR APPOINTMENT 1. CHRONIC PAIN HISTORY OF PRESENT ILLNESS HISTORY OF PRESENT ILLNESS: HERE FOR ROUTINE F/U AND MEDICINE MANAGEMENT OF CHRONIC LBP AND HIP PAIN.HX OF AVASCULAR NECROSIS BILAT. HIPS.FEELS CURRENT CHRONIC PAIN MEDICINE IS HELPFUL AT REDUCING PAIN AND KEEPING HER COMFORTABLE.RATING PAIN VAS 7/10. PAIN THE PATIENT DESCRIBES THE PAIN... THE PATIENT DESCRIBES THE PAIN... FALL RISK SCREENING: SCREENING :NO FALLS REPORTED IN THE LAST YEAR CURRENT MEDICATIONS TAKING BOTOX 200 UNIT SOLUTION RECONSTITUTED INJECTION Q 3MOS TAKING FUSION 65-65-25-30 MG 4 ORALLY DAILY TAKING LYRICA 200 MG CAPSULE 1 TAB ORALLY 3 TIMES A DAY TAKING SPIRONOLACTONE 100 MG TABLET 1 TABLET ORALLY BID TAKING AZELEX 20 % CREAM 1 APPLICATION TO AFFECTED AREA EXTERNALLY TWICE A DAY TAKING OXYCONTIN 15 MG TABLET ER 12 HOUR ABUSE-DETERRENT 1 TABLET ORALLY BID MDD2 TAKING HYDROCODONE-ACETAMINOPHEN 10-325 MG TABLET 1/2 -1 TAB ORALLY Q6H MDD4 NEEDED, NOTES: FOUR TIMES DAILY NOT-TAKING TYLENOL ORAL PRN NOT-TAKING LIDODERM 5 % PATCH 1 PATCH TO INTACT SKIN REMOVE AFTER 12 HOURS EXTERNALLY ONCE A DAY NEEDED, NOTES: PRN MEDICATION LIST REVIEWED AND RECONCILED WITH THE PATIENT PAST MEDICAL HISTORY MIGRIANES VOCAL CORD POLYPS PTSD ANXIETY/DEPRESSION HODGKINS LYMPHOMA CHRONIC PAIN 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 MOM-THYROID CADAD-EMPHYSEMA. SOCIAL HISTORY GENERAL: TOBACCO USE ARE YOU A:CURRENT SMOKER HOW MANY CIGARETTES A DAY DO YOU SMOKE?5 OR LESS HOW SOON AFTER YOU WAKE UP DO YOU SMOKE YOUR FIRST CIGARETTE?AFTER 60 MIN HOW OFTEN DO YOU SMOKE CIGARETTES?SOME DAYS, BUT NOT EVERY DAY PATIENT COUNSELED ON THE DANGERS OF TOBACCO USE AND URGED TO QUIT:12/12/2018 SMOKING CESSATION INFORMATION GIVEN11/13/2017 PAIN CLINIC PFS, CLERGY, PUBLIC HEALTH REFERRALS PFS REFERRAL NEEDED?NO CLERGY REFERRAL NEEDED?NO PUBLIC HEALTH REFERRAL NEEDED?NO WAS THE PROVIDER NOTIFIED OF ANY PERTINENT INFO?NO HAS THE PATIENT BEEN EDUCATED REGARDING HIS/HER PLAN OF CARE?YES HAS THE PATIENT BEEN EDUCATED REGARDING PAIN, THE RISK FOR PAIN, THE IMPORTANCE OF EFFECTIVE PAIN MANAGEMENT, AND THE PAIN ASSESSMENT PROCESS?YES LATEX QUESTIONNAIRE LATEX ALLERGY : HAVE YOU EVER DEVELOPED ANY TYPE OF REACTION AFTER HANDLING LATEX PRODUCTS SUCH RUBBER GLOVES, CONDOMS, DIAPHRAGMS, BALLOONS, SOCKS, OR UNDERWEAR?YES PT ALLERGIC TO LATEX DATE ASKED : 09/15/2018 ADVANCE DIRECTIVE ADVANCE DIRECTIVE DISCUSSED WITH PATIENT:YES DECLINED INFORMATION AND ASSISTANCE WTIH FORM AT THIS TIME. 09/15/18 DRUZE [id number] HOLINESS LANGUAGE LANGUAGES SPOKEN:FILIPINO RECREATIONAL DRUG USE DRUG USE?NO LEARNING BARRIERS / SPECIAL NEEDS BARRIERS TO LEARNING?NO HEARING IMPAIRED?NO VISION IMPAIRED?YES COGNITIVELY IMPAIRED?NO :CORRECTIVE LENSES READINESS TO LEARN?YES LEARNING PREFERENCES?NO LEARNING CAPABILITIES PRESENT?YES EMOTIONAL BARRIERS?NO SPECIAL DEVICES?NO ORGANIZATIONAL DEVELOPMENT CONSULTANT NEEDED?NO REVIEWED WITH PATIENT 01/13/18 0951 JSREVIEWED WITH PT 09/15/18 1023 BVREVIEWED WITH PATIENT 12/12/18 1107 NLJ. HOSPITALIZATION/MAJOR DIAGNOSTIC PROCEDURE BULIMIA REVIEW OF SYSTEMS REVIEWED BY: PROVIDER: PATRIZIA PRICE . CONSTITUTIONAL: ANY CHANGE IN YOUR MEDICAL CONDITION? NO . CHILLS NO . FEVER NO . INFECTION: DO YOU HAVE NEW INFECTIONS? NO . DO YOU HAVE HISTORY OF MRSA? NO . MUSCULOSKELETAL: ANY NEW PATTERNS OF PAIN OR NUMBNESS? YES- LOWER BACK, UPPER BACK AND SHOULDER PAIN, AND ALSO NECK, NORMAL PAIN IN BAILATERAL HIPS AND KNEES, STATES SHE DOES GET SOME NUMBNESS IN BIALTERAL ARMS . GASTROENTEROLOGY: ANY NEW CHANGE IN BOWEL CONTROL? NO . GENITOURINARY: ANY NEW CHANGE IN BLADDER CONTROL? NO . IS THERE A CHANCE YOU COULD BE ? NO . HEMATOLOGY/LYMPH: DO YOU TAKE ANY BLOOD THINNERS? (FOR EXAMPLE- COUMADIN, PLAVIX, AGGRENOX, PLATEL, PRADAXA, OR XARELTO) NO . WHEN WAS YOUR LAST DOSE? DATE: TIME: . NEUROLOGY: HAVE YOU FALLEN IN THE PAST 12 MONTHS? NO . ANY NEW EXTREMITY NUMBNESS OR WEAKNESS? NO . CARDIOLOGY: DO YOU HAVE A PACEMAKER OR DEFIBRILLATOR? NO . RESPIRATORY: HAVE YOU BEEN SICK IN THE PAST WEEK? NO . FEVER NO . FLU LIKE SYMPTOMS? NO . COUGH NO . INTEGUMENTARY: DO YOU HAVE ANY RASHES OR OPEN SORES? NO . ALLERGIC/IMMUNO: ARE YOU ALLERGIC TO IV DYE? NO . ANY NEW ALLERGIES? NO . PSYCHIATRIC: DO YOU HAVE THOUGHTS OF HURTING YOURSELF OR SOMEONE ELSE? NO . ARE YOU ABUSED, NEGLECTED, OR IN AN UNSAFE ENVIRONMENT? NO . ENDOCRINOLOGY: ARE YOU DIABETIC? NO . OTHER: DO YOU NEED ANY PRESCRIPTIONS? YES . IF YES, PLEASE LIST: ____HYDROCODONE, OXYCONTIN, LYRICA . ANY NEW PROBLEMS WITH YOUR MEDICATIONS? NO . WHEN DID YOU LAST EAT? ____ . WHEN DID YOU LAST DRINK? ____ . WHAT DID YOU LAST DRINK? ____ . NAME OF PERSON DRIVING YOU HOME? ____ . DO YOU HAVE ANY OTHER QUESTIONS OR CONCERNS YES- WOULD LIKE TO DISCUSS MEDS, SHE IS WONDERING IF HER MEDS CAN BE INCREASED OR CAN SHE HAVE ANY CHANGED OR ADDED TO HELP WITH THE PAIN . VITAL SIGNS WT 177.0 LBS, HT 63 IN, BMI 31.35 INDEX, BP 117/64 MM HG, HR 83 /MIN, RR 16 /MIN, TEMP 98.3 F, OXYGEN SAT % 98%, SAFE IN ENV? (Y/N) YES, NA INITIALS AW 1102, REVIEWED BY: ARDEN. EXAMINATION GENERAL EXAMINATION: GENERALAWAKE,ALERT ,PLEAASANT . PSYCHAFFECT NORMAL . LUNGS:LUNG BENNETT ARE CLEAR TO AUSCULTATION BILATERALLY. GOOD MOVEMENT OF AIR . HEART:S1, S2 IN A REGULAR RATE AND RHYTHM. NO SIGNIFICANT MURMURS, RUBS OR GALLOPS NOTED . ASSESSMENTS BILATERAL LOW BACK PAIN, WITH SCIATICA PRESENCE UNSPECIFIED - M54.5 TREATMENT BILATERAL LOW BACK PAIN, WITH SCIATICA PRESENCE UNSPECIFIED CONTINUE LYRICA CAPSULE, 200 MG, 1 TAB, ORALLY, 3 TIMES A DAY, 30 DAYS, 90 TABLET, REFILLS 2 INCREASE OXYCONTIN TABLET ER 12 HOUR ABUSE-DETERRENT, 30 MG, 1 TABLET, ORALLY, QAM MDD1, 30 DAYS, 30, REFILLS 0 REFILL HYDROCODONE-ACETAMINOPHEN TABLET, 10-325 MG, 1/2 -1 TAB, ORALLY, Q6H MDD4 NEEDED, 30 DAYS, 120, REFILLS 0, NOTES: FOUR TIMES DAILY START OXYCONTIN TABLET ER 12 HOUR ABUSE-DETERRENT, 15 MG, 1 TABLET, ORALLY, DAILY AT BEDTIME MDD1, 30 DAYS, 30, REFILLS 0 NOTES: ISTOP REGISTRY REVIEWED AND DEMONSTRATES COMPLLIANCE. BRINGS IN MEDICATIONS WHICH IS APPROPRIATE FOR WHAT WAS DISPENSED. RECENT URINE TOXICOLOGY REVIEWED. NO UNAUTHORIZED MEDICATIONS. NO ILLICIT SUBSTANCES AND PRESCRIBED MEDICATIONS WERE PRESENT. URINE TOX TODAY, RISKS AND BENEFITS OF NARCOTIC/OPIOD MEDICATIONS WERE REVIEWED WITH PATIENT - THIS INCLUDES BUT IS NOT LIMITED TO RISK OF DEPENDANCE/DEVELOPMENT OF ADDICTION, MOOD DISTURBANCE AND DEPRESSION, OSTEOPOROSIS, HORMONAL AND LABIDAL CHANGES, RESPIRATORY DEPRESSION AND . PATIENT IS ADVISED NOT TO DRIVE OR DRINK ALCOHOL WHILE ON THESE MEDICATIONS. PROCEDURE CODES FA211 ESTABILISHED PATIENT [facility] CHARGE DISPOSITION & COMMUNICATION FOLLOW UP 3 MONTHS ELECTRONICALLY SIGNED BY ALBERT BRITTON ON 12/24/2018 AT 01:10 PM EDT DISCLAIMER : THIS IS A VISIT SUMMARY EXTRACTED FROM THE [employer] CHART. IT IS NOT A COPY OF THE [employer] PROGRESS NOTE. ELIGIO
== END ==
LOC: M PAIN 10:15
PROVIDERS: ATTEND Nurse Practitioner Family
DX: M54.5 Low back pain (principal); G89.29 Other chronic pain; G43.909 Migraine, unspecified, not intractable, without status migrainosus; Z86.59 Personal history of other mental and behavioral disorders; M19.90 Unspecified osteoarthritis, unspecified site; Z98.84 Bariatric surgery status; F17.210 Nicotine dependence, cigarettes, uncomplicated; Z88.3 Allergy status to other anti-infective agents; Z91.013 Allergy to seafood; Z91.040 Latex allergy status; Z91.041 Radiographic dye allergy status; Z79.891 Long term (current) use of opiate analgesic; Z79.899 Other long term (current) drug therapy

== ENCOUNTER → 2019-03-13 | Outpatient (CLI) | payer MEDICARE, OTHER ==
[~2019-03-13] MED LIST changes: +CLON0.5T2 PO; -CLON0.5T8 PO; -LAMO200T2 PO; +LAMO200T3 PO
--- NOTE | 2019-03-27 04:08 | ECWPNPC ---
PATIENT NAME: TORY TIRADO : 1975 GENDER: FEMALE VISIT DATE: 03/13/2019 DISCHARGE DATE: 03/13/19 1250 VISIT LOCKED DATE TIME: PHYSICIAN: PATRIZIA WILLAMS RESOURCE: PATRIZIA WILLAMS REASON FOR APPOINTMENT 1. CHRONIC PAIN HISTORY OF PRESENT ILLNESS HISTORY OF PRESENT ILLNESS: HERE FOR ROUTINE F/U AND MEDICINE MANAGEMENT OF CHRONIC LBP AND HIP PAIN.HX OF AVASCULAR NECROSIS BILAT. HIPS.FEELS CURRENT CHRONIC PAIN MEDICINE IS HELPFUL AT REDUCING PAIN AND KEEPING HER COMFORTABLE.RATING PAIN VAS 8/10. PAIN THE PATIENT DESCRIBES THE PAIN... FALL RISK SCREENING: SCREENING :NO FALLS REPORTED IN THE LAST YEAR CURRENT MEDICATIONS TAKING BOTOX 200 UNIT SOLUTION RECONSTITUTED INJECTION Q 3MOS TAKING FUSION 65-65-25-30 MG 4 ORALLY DAILY TAKING SPIRONOLACTONE 100 MG TABLET 1 TABLET ORALLY BID TAKING AZELEX 20 % CREAM 1 APPLICATION TO AFFECTED AREA EXTERNALLY TWICE A DAY TAKING OXYCONTIN 15 MG TABLET ER 12 HOUR ABUSE-DETERRENT ORALLY DAILY, NOTES: AT BED TIME TAKING HYDROCODONE-ACETAMINOPHEN 10-325 MG TABLET 1/2 -1 TAB ORALLY Q6H MDD4 NEEDED, NOTES: FOUR TIMES DAILY TAKING LYRICA 200 MG CAPSULE 1 TAB ORALLY 3 TIMES A DAY TAKING OXYCONTIN 30 MG TABLET ER 12 HOUR ABUSE-DETERRENT 1 TABLET ORALLY DAILY AT BEDTIME MDD1, NOTES: ONCE A DAY TAKING TYLENOL ORAL PRN TAKING LIDODERM 5 % PATCH 1 PATCH TO INTACT SKIN REMOVE AFTER 12 HOURS EXTERNALLY ONCE A DAY NEEDED, NOTES: PRN NEED MEDICATION LIST REVIEWED AND RECONCILED WITH THE PATIENT PAST MEDICAL HISTORY MIGRIANES VOCAL CORD POLYPS PTSD ANXIETY/DEPRESSION HODGKINS LYMPHOMA CHRONIC PAIN 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 MOM-THYROID CADAD-EMPHYSEMA. SOCIAL HISTORY GENERAL: TOBACCO USE ARE YOU A:CURRENT SMOKER HOW OFTEN DO YOU SMOKE CIGARETTES?SOME DAYS, BUT NOT EVERY DAY HOW SOON AFTER YOU WAKE UP DO YOU SMOKE YOUR FIRST CIGARETTE?AFTER 60 MIN HOW MANY CIGARETTES A DAY DO YOU SMOKE?5 OR LESS PATIENT COUNSELED ON THE DANGERS OF TOBACCO USE AND URGED TO QUIT:12/12/2018 SMOKING CESSATION INFORMATION GIVEN11/13/2017 PAIN CLINIC PFS, CLERGY, PUBLIC HEALTH REFERRALS PFS REFERRAL NEEDED?NO CLERGY REFERRAL NEEDED?NO PUBLIC HEALTH REFERRAL NEEDED?NO WAS THE PROVIDER NOTIFIED OF ANY PERTINENT INFO?NO HAS THE PATIENT BEEN EDUCATED REGARDING HIS/HER PLAN OF CARE?YES HAS THE PATIENT BEEN EDUCATED REGARDING PAIN, THE RISK FOR PAIN, THE IMPORTANCE OF EFFECTIVE PAIN MANAGEMENT, AND THE PAIN ASSESSMENT PROCESS?YES LATEX QUESTIONNAIRE LATEX ALLERGY : HAVE YOU EVER DEVELOPED ANY TYPE OF REACTION AFTER HANDLING LATEX PRODUCTS SUCH RUBBER GLOVES, CONDOMS, DIAPHRAGMS, BALLOONS, SOCKS, OR UNDERWEAR?YES PT ALLERGIC TO LATEX DATE ASKED : 09/15/2018 ADVANCE DIRECTIVE ADVANCE DIRECTIVE DISCUSSED WITH PATIENT:YES DECLINED INFORMATION AND ASSISTANCE WTIH FORM AT THIS TIME. 09/15/18 RASTAFARI [id number] CONFUCIANIST LANGUAGE LANGUAGES SPOKEN:CENTRAL AFRICAN RECREATIONAL DRUG USE DRUG USE?NO LEARNING BARRIERS / SPECIAL NEEDS BARRIERS TO LEARNING?NO HEARING IMPAIRED?NO VISION IMPAIRED?YES COGNITIVELY IMPAIRED?NO :CORRECTIVE LENSES READINESS TO LEARN?YES LEARNING PREFERENCES?NO LEARNING CAPABILITIES PRESENT?YES EMOTIONAL BARRIERS?NO SPECIAL DEVICES?NO AIRCRAFT ARMORER NEEDED?NO REVIEWED WITH PATIENT 01/13/18 0951 JSREVIEWED WITH PT 09/15/18 1023 BVREVIEWED WITH PATIENT 12/12/18 1107 NLJ. HOSPITALIZATION/MAJOR DIAGNOSTIC PROCEDURE BULIMIA REVIEW OF SYSTEMS REVIEWED BY: PROVIDER: PATRIZIA PRICE . CONSTITUTIONAL: ANY CHANGE IN YOUR MEDICAL CONDITION? NO . CHILLS NO . FEVER NO . INFECTION: DO YOU HAVE NEW INFECTIONS? NO . DO YOU HAVE HISTORY OF MRSA? NO . MUSCULOSKELETAL: ANY NEW PATTERNS OF PAIN OR NUMBNESS? YES INCREASE ATRIBUTE TO WEATHER CHANGES ALSO . GASTROENTEROLOGY: ANY NEW CHANGE IN BOWEL CONTROL? NO . GENITOURINARY: ANY NEW CHANGE IN BLADDER CONTROL? NO . IS THERE A CHANCE YOU COULD BE ? NO . HEMATOLOGY/LYMPH: DO YOU TAKE ANY BLOOD THINNERS? (FOR EXAMPLE- COUMADIN, PLAVIX, AGGRENOX, PLATEL, PRADAXA, OR XARELTO) NO . WHEN WAS YOUR LAST DOSE? DATE: TIME: . NEUROLOGY: HAVE YOU FALLEN IN THE PAST 12 MONTHS? NO . ANY NEW EXTREMITY NUMBNESS OR WEAKNESS? NO . CARDIOLOGY: DO YOU HAVE A PACEMAKER OR DEFIBRILLATOR? NO . RESPIRATORY: HAVE YOU BEEN SICK IN THE PAST WEEK? NO . FEVER NO . FLU LIKE SYMPTOMS? NO . COUGH NO . INTEGUMENTARY: DO YOU HAVE ANY RASHES OR OPEN SORES? NO . ALLERGIC/IMMUNO: ARE YOU ALLERGIC TO IV DYE? NO . ANY NEW ALLERGIES? NO . PSYCHIATRIC: DO YOU HAVE THOUGHTS OF HURTING YOURSELF OR SOMEONE ELSE? NO . ARE YOU ABUSED, NEGLECTED, OR IN AN UNSAFE ENVIRONMENT? NO . ENDOCRINOLOGY: ARE YOU DIABETIC? NO . OTHER: DO YOU NEED ANY PRESCRIPTIONS? W.YCONTIN 15 MG AND 30 MG HYDROCODONE 10/325 ALSO LYRICA AND THE LIDOCAINE PATCH . IF YES, PLEASE LIST: ____ . ANY NEW PROBLEMS WITH YOUR MEDICATIONS? NO . WHEN DID YOU LAST EAT? ____ . WHEN DID YOU LAST DRINK? ____ . WHAT DID YOU LAST DRINK? ____ . NAME OF PERSON DRIVING YOU HOME? ____ . DO YOU HAVE ANY OTHER QUESTIONS OR CONCERNS NO . VITAL SIGNS WT 160.4 LBS, HT 63 IN, BMI 28.41 INDEX, BP 127/61 MM HG, HR 86 /MIN, RR 16 /MIN, TEMP 98.0 F, OXYGEN SAT % 100%, NA INITIALS AW 1207. EXAMINATION GENERAL EXAMINATION: GENERALAWAKE,ALERT ,PLEAASANT . PSYCHAFFECT NORMAL . LUNGS:LUNG BENNETT ARE CLEAR TO AUSCULTATION BILATERALLY. GOOD MOVEMENT OF AIR . HEART:S1, S2 IN A REGULAR RATE AND RHYTHM. NO SIGNIFICANT MURMURS, RUBS OR GALLOPS NOTED . ASSESSMENTS BILATERAL LOW BACK PAIN, WITH SCIATICA PRESENCE UNSPECIFIED - M54.5 (PRIMARY) TREATMENT BILATERAL LOW BACK PAIN, WITH SCIATICA PRESENCE UNSPECIFIED CONTINUE OXYCONTIN TABLET ER 12 HOUR ABUSE-DETERRENT, 15 MG, ORALLY, DAILY, NOTES: AT BED TIME CONTINUE HYDROCODONE-ACETAMINOPHEN TABLET, 10-325 MG, 1/2 -1 TAB, ORALLY, Q6H MDD4 NEEDED, NOTES: FOUR TIMES DAILY CONTINUE LYRICA CAPSULE, 200 MG, 1 TAB, ORALLY, 3 TIMES A DAY CONTINUE OXYCONTIN TABLET ER 12 HOUR ABUSE-DETERRENT, 30 MG, 1 TABLET, ORALLY, DAILY AT BEDTIME MDD1, NOTES: ONCE A DAY NOTES: ISTOP REGISTRY REVIEWED AND DEMONSTRATES COMPLLIANCE. BRINGS IN MEDICATIONS WHICH IS APPROPRIATE FOR WHAT WAS DISPENSED. RECENT URINE TOXICOLOGY REVIEWED. NO UNAUTHORIZED MEDICATIONS. NO ILLICIT SUBSTANCES AND PRESCRIBED MEDICATIONS WERE PRESENT. PROCEDURE CODES FA211 ESTABILISHED PATIENT [facility] CHARGE DISPOSITION & COMMUNICATION FOLLOW UP 3 MONTHS (REASON: MED MGMNT) ELECTRONICALLY SIGNED BY ALBERT BRITTON ON 03/26/2019 AT 03:55 PM EST DISCLAIMER : THIS IS A VISIT SUMMARY EXTRACTED FROM THE [employer] CHART. IT IS NOT A COPY OF THE [employer] PROGRESS NOTE. ELIGIO
== END ==
LOC: M PAIN 13:00
PROVIDERS: ATTEND Nurse Practitioner Family
DX: M54.5 Low back pain (principal); G89.29 Other chronic pain; G43.909 Migraine, unspecified, not intractable, without status migrainosus; Z86.59 Personal history of other mental and behavioral disorders; Z98.84 Bariatric surgery status; F17.210 Nicotine dependence, cigarettes, uncomplicated; Z88.3 Allergy status to other anti-infective agents; Z91.013 Allergy to seafood; Z91.040 Latex allergy status; Z91.041 Radiographic dye allergy status; Z79.891 Long term (current) use of opiate analgesic; Z79.899 Other long term (current) drug therapy

== ENCOUNTER 2019-04-26 18:10 | Inpatient (IN) | payer MEDICARE, OTHER ==
[~2019-04-26] VITALS: Ht 165.1 cm; Wt 68.0 kg
[~2019-04-26 18:10] MED LIST changes: -LIDO5DIS41 TD; +LIDO5DIS41 TOP
[2019-04-26] MEDS ORDERED: SPIR100T3 PO (19:21)
[2019-04-26] MEDS ORDERED: AZEL20CR TOP (19:21)
[2019-04-26] MEDS ORDERED: HYDR4CRE TOP (19:21)
[2019-04-26] MEDS ORDERED: OXYC30TA72 PO (19:21)
[2019-04-26 19:25] LABS: BASO % 0.3 % (0.0-1.0); EOS # 0.3 10^3/uL (0.0-0.5); EOS % 4.9 % (0.0-3.0); HEMATOCRIT 23.9 % (36.0-47.0); LYMPH # 1.3 10^3/uL (1.5-5.0); LYMPH % 19.9 % (24.0-44.0); MEAN CORPUSCULAR HEMOGLOBIN 21.1 pg (27.0-33.0); MEAN CORPUSCULAR VOLUME 75.2 fl (80.0-96.0); MONO # 0.5 10^3/uL (0.0-0.8); MONO % 8.6 % (0.0-5.0); NEUTROPHILS # 4.1 10^3/uL (1.5-8.5); PLATELET COUNT, AUTOMATED 314 10^3/uL (150-450); RED BLOOD COUNT 3.18 10^6/uL (4.00-5.40); WHITE BLOOD COUNT 6.3 10^3/uL (4.0-10.0)
[2019-04-26 19:27] LABS: HEMOGLOBIN 6.7 g/dl (12.0-15.5)
[2019-04-26] MEDS ORDERED: diphenhydrAMINE INJ 50MG/ML VIAL (J1200) IV STA (19:41)
[2019-04-26 19:45] LABS: BLOOD UREA NITROGEN 10 MG/DL (7-18); C REACTIVE PROTEIN QUANTITATIV < 0.30 MG/DL (0.00-0.30); CALCIUM LEVEL 7.8 MG/DL (8.5-10.1); CARBON DIOXIDE LEVEL 24 MEQ/L (21-32); CHLORIDE LEVEL 112 MEQ/L (98-107); CREATININE FOR GFR 0.78 MG/DL (0.55-1.30); ERYTHROCYTE SEDIMENTATION RATE 34 mm/hr (0-20); GLOMERULAR FILTRATION RATE > 60.0 (>58); GLUCOSE, FASTING 102 MG/DL (70-100); POTASSIUM SERUM 4.5 MEQ/L (3.5-5.1); SODIUM LEVEL 142 MEQ/L (136-145)
[2019-04-26] MEDS ORDERED: methylPREDNISolone INJ 125 MG/2 ML VIAL (J2930) IV ONE (19:45)
[2019-04-26 20:18] LABS: CK-MB VALUE MASS 1.1 NG/ML (<3.6); CPK CREATINE PHOSPHOKINASE 119 U/L (26-192); MB/CK RELATIVE INDEX 0.92 (< OR =4); TROPONIN I < 0.02 NG/ML (< 0.10)
[2019-04-26] MEDS ORDERED: ISOVUE-370 76% 100ML VIAL (Q9967) As Ordered ONE (20:28)
--- NOTE | 2019-04-26 20:51 | REPVR ---
PROCEDURE INFORMATION: Exam: US Duplex Lower Extremity Veins Exam date and time: 04/26/2019 8:27 PM Age: 43 years old Clinical indication: Edema, localized; Lower extremity, bilateral; Additional info: Pain swelling R/O dvt TECHNIQUE: Imaging protocol: Real-time duplex ultrasound of the Lower Extremities with 2-D justice scale, color Doppler flow and spectral waveform analysis with image documentation. Complete exam focused on the bilateral lower extremity veins. COMPARISON: US Duplex, Ext LOWER veins, bilat 08/30/2014 9:58 PM FINDINGS: Right deep veins: Unremarkable. The common femoral, femoral, proximal profunda femoral and popliteal veins are patent without thrombus. Normal Doppler waveforms. Normal compressibility and/or augmentation response. Right superficial veins: Saphenofemoral junction is patent without thrombus. Left deep veins: Unremarkable. The common femoral, femoral, proximal profunda femoral and popliteal veins are patent without thrombus. Normal Doppler waveforms. Normal compressibility and/or augmentation response. Left superficial veins: Saphenofemoral junction is patent without thrombus. Soft tissues: Unremarkable. IMPRESSION: No DVT of bilateral lower extremities. Electronically signed by: Fredy West On 04/26/2019 20:51:46 PM
[2019-04-26] MEDS: PREGABALIN 75 MG CAP(LYRICA) PO SCH (21:00)
--- NOTE | 2019-04-26 21:39 | REPVR ---
PROCEDURE INFORMATION: Exam: CT Angiography Chest With Contrast Exam date and time: 04/26/2019 8:44 PM Age: 43 years old Clinical indication: Shortness of breath; Chest pain; Additional info: SOB, chest pain HX of pe TECHNIQUE: Imaging protocol: Computed tomographic angiography of the chest with intravenous contrast. 3D rendering: MIP and/or 3D reconstructed images were created by the technologist. Radiation optimization: All CT scans at this facility use at least one of these dose optimization techniques: automated exposure control; mA and/or kV adjustment per patient size (includes targeted exams where dose is matched to clinical indication); or iterative reconstruction. Contrast material: ISOVUE 370; Contrast volume: 75 ml; Contrast route: IV; COMPARISON: CT Chest without contrast 2014-09-01 08:48 FINDINGS: Pulmonary arteries: No filling defects in the pulmonary arteries to suggest pulmonary emboli. Aorta: Unremarkable. No aortic aneurysm. No aortic dissection. Lungs: There is a pulmonary parenchymal calcification consistent with remote granulomatous organism exposure. Dependent subsegmental pulmonary atelectasis. Small areas of air trapping, correlate for reactive airways disease or bronchiolitis. Pleural space: Unremarkable. No pneumothorax. No pleural effusion. Heart: Unremarkable. No cardiomegaly. No pericardial effusion. Stomach and bowel: María-en-Y gastric bypass surgical changes in the left upper abdomen. click anomalous Lymph nodes: Unremarkable. No enlarged lymph nodes. Bones/joints: Unremarkable. No acute fracture. Soft tissues: Unremarkable. IMPRESSION: 1. No filling defects in the pulmonary arteries to suggest pulmonary emboli. 2. Small areas of air trapping, correlate for reactive airways disease or bronchiolitis. Electronically signed by: Pollo Santos On 04/26/2019 21:39:22 PM
[2019-04-26] MEDS ORDERED: OXYC15TA66 PO (22:31)
[2019-04-26] MEDS ORDERED: ACETAMINOPHEN TAB 650MG DOSE (2X325MG) PO PRN (22:45)
[2019-04-26 22:56] LABS: ALBUMIN 3.1 GM/DL (3.2-5.2); ALT/SGPT 14 U/L (12-78); BILIRUBIN,DIRECT < 0.1 MG/DL (0.0-0.2); BILIRUBIN,TOTAL 0.2 MG/DL (0.2-1.0); FERRITIN 6 NG/ML (8-252); IRON (FE) 11 UG/DL (50-170); LDH LACTATE DEHYDROGENASE 249 U/L (84-246); PERCENT SATURATION 2.7 % (13.2-45.0); TOTAL IRON BINDING CAPACITY 405 UG/DL (250-450); TOTAL PROTEIN 6.8 GM/DL (6.4-8.2)
[2019-04-26] MEDS ORDERED: LIDOCAINE 5% (LIDODERM) PATCH TOP PRN (23:00)
[2019-04-26 23:30] VITALS: BP 147/85
[2019-04-27] VITALS (16 sets, daily range): BP systolic 110–147; BP diastolic 59–81
--- NOTE | 2019-04-27 00:22 | HPEPDOC ---
General Date of Admission Apr 26, 2019 at 22:23 Date of Service: Apr 26, 2019 Chief Complaint The patient is a 43-year-old female admitted with a reason for visit of Symptomatic Anemia. Source: Patient, EMS notes reviewed Exam Limitations: No limitations Timing/Duration: Week(s) (1) Severity: Moderate Associated Symptoms: Chest Pain, Cough, Shortness of breath History of Present Illness Pt is a 43 year old female who presented to the ED with dyspnea, and pain in b/l calves/legs. Pt stated she had returned from an extended car ride on Saturday when she noted pain, swelling and redness in b/l calves. These Sx resolved during the week, but she also noticed she was becoming short of breath and having sharp pains when she inhaled deeply. The pain is located over the R side of the lower ribs and resolves when she isn't taking deep breaths. Pt stated she has a Hx of PE and DVT; she was treated x 1 year and advised to take frequent breaks during long trips etc. Pt stated there is still some swelling in her legs. She also has pain up and down both legs. She has chronic pain from necrosis of b/l femoral heads and needs 2 knee replacements; however she is unsuitable for surgery. Pt stated the last time she was anemic she was Dx with Hodgkin Lymphoma (16yo). She had three periods this month, the last on ended on Saturday. Multiple menses in 1 month is unusual for her. Denied blood in the urine or the stool. Pt also reported a 20lb unintentional weight loss x 1.5 months. Home Medications Scheduled Botulinum Toxin Type A (Botox) 100 Units Soln, 100 UNITS IM Q3M, (Reported) Hydroquinone (Hydroquinone) 28.35 Gm Cream..g., 1 APPLIC TOP DAILY, (Reported) Oxycodone HCl (Oxycontin) 30 Mg Tab.er.12h, 30 MG PO QAM, (Reported) Oxycodone HCl (Oxycontin) 15 Mg Tab.er.12h, 15 MG PO QPM, (Reported) Pregabalin (Lyrica) 150 Mg Cap, 150 MG PO TID, (Reported) Spironolactone (Spironolactone) 100 Mg Tablet, 100 MG PO DAILY, (Reported) Scheduled PRN Azelaic Acid (Azelex) 30 Gm Cream..g., 1 APPLIC TOP DAILY PRN for RASH, (Reported) Hydrocodone/Acetaminophen (Hydrocodone-Acetamin 10-325 mg) 1 Tab Tab, 10-325 MG PO Q4HP PRN for PAIN, (Reported) Lidocaine (Lidoderm) 5 % Dis, 1 PATCH TOP DAILY PRN for PAIN, (Reported) Allergies Coded Allergies: Contrast Media (Verified Allergy, Mild, HIVES, 04/26/19) latex (Verified Allergy, Mild, HIVES, 04/26/19) Past Medical History Medical History Hx of Hodgkin Lymphoma Avascular necrosis b/l femoral heads HTN Hx of PE Hx of DVT Depression Anxiety Bulimia PTSD Migraine Surgical History B/L hip surgery Gastric bypass Family History Significant Family History: Cancer (Mother - cervical, thyroid ), Diabetes (Father), Heart disease (Mother ), Hypertension (Mother ) Social History * Smoker: current smoker (~ 1-2/day ) Alcohol: Denies Drugs: denies Recent Travel/Sick Contacts: Reports: Recent travel A-FIB/[facility] A-FIB History Current/History of A-Fib/PAF?: No Current PO Anticoag Therapy: No Review of Systems Constitutional: Denies: Chills, Fever, Night Sweats Eyes: Denies: Pain ENT: Denies: Head Aches Skin: Denies: Rash Pulmonary: Reports: Dyspnea, Pleuritic Chest Pain; Denies: Cough Cardiovascular: Denies: Chest Pain, Palpitations, Orthopnea, Paroxysmal Noc. Dyspnea, Lt Headedness Gastrointestinal: Denies: Nausea, Vomiting, Abdominal Pain, Diarrhea Genitourinary: Denies: Dysuria, Frequency, Incontinence, Retention Hematologic: Denies: Bruising Musculoskeletal: Reports: Leg Pain, Joint Pain (Hips and knees ); Denies: Neck Pain, Back Pain, Muscle Pain, Spasms Neurological: Denies: Weakness, Numbness, Change in speech, Confusion Psych: Reports: Mood Normal; Denies: Depression, Memory Issues Physical Examination General Exam: Positive: Alert, Cooperative, Mild Distress (pain in b/l LEs) Eye Exam: Positive: PERRLA, Conjunctiva & lids normal, EOMI; Negative: Sclera icteric ENT Exam: Positive: Atraumatic, Mucous membr. moist/pink, Pharynx Normal, Tongue Midline Neck Exam: Positive: Supple; Negative: JVD, thyromegaly Chest Exam: Positive: Clear to auscultation, Normal air movement Heart Exam: Positive: Rate Normal, Murmurs (2/6 SM S1S2 intact ); Negative: Gallops, Rubs Abdomen Exam: Positive: Normal bowel sounds, Soft, Tenderness (diffuse ); Negative: Hepatospenomegaly Extremity Exam: Positive: Normal pulses; Negative: Clubbing, Cyanosis, Edema, Tenderness, Swelling Skin Exam: Positive: Nl turgor and temperature Neuro Exam: Positive: Normal Speech, Strength at 5/5 X4 ext Psych Exam: Positive: Mood NL, Oriented x 3 Vital Signs Vital Signs Date Time Temp Pulse Resp B/P (MAP) Pulse Ox O2 Delivery O2 Flow Rate FiO2 04/26/19 22:45 71 145/78 (100) 97 04/26/19 18:13 98.4 20 04/26/19 18:12 Room Air Laboratory Data Labs 24H Laboratory Tests 2 04/26/19 19:14: Immature Granulocyte % (Auto) 0.3, Neutrophils (%) (Auto) 66.0, Lymphocytes (%) (Auto) 19.9L, Monocytes (%) (Auto) 8.6H, Eosinophils (%) (Auto) 4.9H, Basophils (%) (Auto) 0.3, Neutrophils # (Auto) 4.1, Lymphocytes # (Auto) 1.3L, Monocytes # (Auto) 0.5, Eosinophils # (Auto) 0.3, Basophils # (Auto) 0.0, Reticulocyte # (auto) 52.3, Nucleated Red Blood Cells % (auto) 0.0, Erythrocyte Sedimentation Rate 34H, Percent Reticulocyte Count 1.6H, Reticulocyte Hemoglobin Equivalent 18.9L, Anion Gap 6L, Glomerular Filtration Rate > 60.0, Calcium Level 7.8L, Iron Level 11L, Total Iron Binding Capacity 405, Transferrin % Saturation 2.7L, Ferritin 6L, Total Bilirubin 0.2, Direct Bilirubin < 0.1, Aspartate Amino Transf (AST/SGOT) 16, Alanine Aminotransferase (ALT/SGPT) 14, Alkaline Phosphatase 52, Lactate Dehydrogenase 249H, Total Creatine Kinase 119, Creatine Kinase MB 1.1, Creatine Kinase MB Relative Index 0.92, Troponin I < 0.02, C-Reactive Protein, Quantitative < 0.30, Total Protein 6.8, Albumin 3.1L, Albumin/Globulin Ratio 0.84L CBC/BMP Laboratory Tests 04/26/19 19:14 Assessment/Plan Pt is a 43 year old female who presented to the ED with dyspnea, and pain in b/l calves/legs. Pt stated she had returned from an extended car ride on Saturday when she noted pain, swelling and redness in b/l calves. These Sx resolved during the week, but she also noticed she was becoming short of breath and having sharp pains when she inhaled deeply. The pain is sharp, located over the R side of the lower ribs and resolves when she is no longer taking a deep breath. Pt stated she has a Hx of PE and DVT; she was treated x 1 year and advised to take frequent breaks during long trips etc. Pt stated there is still some swelling in her legs. She also has pain up and down both legs. She has chronic pain from necrosis of b/l femoral heads and needs 2 knee replacements; however she is unsuitable for surgery. Pt stated the last time she was anemic she was Dx with Hodgkin Lymphoma (16yo). She had three periods this month, the last on ended on Saturday. Multiple menses in 1 month is unusual for her. Pt also reported a 20lb unintentional weight loss x 1.5 months. Pt has a PMHx of Hx of Hodgkin Lymphoma, Avascular necrosis b/l femoral heads, Hx of PE, Hx of DVT, HTN, Depression, Anxiety, Bulimia, PTSD, migraines. Chest pain/dyspnea/leg pains CTA IMPRESSION: 1. No filling defects in the pulmonary arteries to suggest pulmonary emboli. 2. Small areas of air trapping, correlate for reactive airways disease or bronchiolitis. Duplex b/l LEs IMPRESSION: No DVT of bilateral lower extremities. CP is longstanding - admitted in 2015 for same complaint; pulmonology Dr. Ge consulted at the time. Unlikely infectious as pt has no leukocytosis, unlikely pulm due to CTA results. Consider MSK origin Symptomatic anemia Ferritin and transferrin low - suggesting likely 2/2 iron deficiency Will transfuse 2 units PRBCs will need iron supplementation and monitoring outpt. Vitamin B12, folate - pending Repeat CBC qam Menorrhagia - Patient has reported 3 periods this month - Will get pelvic ultrasound to evaluate for any abnormalities Chronic pain 2/2 necrosis of b/l femoral heads - continue home pain medications; Lyrica, Long acting Oxycodone and Terrell PRN Acne / Facial lesions - c/w Spironolactone - Will hold Azelaic acid and hydroquinone topical creams DVT prophylaxis - c/w TEDs/Sequentials Plan / VTE VTE Prophylaxis Ordered?: No Attending Note Attending Note I have reviewed the documentation and assessed the patient independently. I have made necessary revisions as needed. I agree with the findings, assessment and plan stated above. - Patient has reported lower extremity swelling and pain that prompted her arrival to emergency room - Patient is also provided additional history including having a period 3 times this month - Hemoglobin was found to be 6.7 - Patient was found to be hemodynamically stable on examination without any specific findings on physical - Will perform full workup of anemia including iron panel, B12, folate, and hemolytic workup - Will transfuse 2 units of PRBC - Pelvic ultrasound has been ordered RUBENS HOUSTON PA-C Apr 27, 2019 00:22 MARION SANFORD MD Apr 27, 2019 02:10
[2019-04-27] MEDS: NORCO, ANEXSIA 5/325MG TABLET (HYDROcodone/ACETAMINOPHEN) PO PRN ×2 (05:21→21:03)
[2019-04-27 06:12] LABS: BASO % 0.1 % (0.0-1.0); HEMATOCRIT 34.4 % (36.0-47.0); LYMPH # 0.4 10^3/uL (1.5-5.0); LYMPH % 4.6 % (24.0-44.0); MEAN CORPUSCULAR HEMOGLOBIN 22.7 pg (27.0-33.0); MEAN CORPUSCULAR HGB CONC 29.9 g/dl (32.0-36.5); MEAN CORPUSCULAR VOLUME 75.9 fl (80.0-96.0); MONO % 0.3 % (0.0-5.0); NEUTROPHILS # 7.2 10^3/uL (1.5-8.5); NEUTROPHILS % 94.6 % (36.0-66.0); PLATELET COUNT, AUTOMATED 381 10^3/uL (150-450); RED BLOOD COUNT 4.53 10^6/uL (4.00-5.40); WHITE BLOOD COUNT 7.6 10^3/uL (4.0-10.0)
[2019-04-27 06:24] LABS: HEMOGLOBIN 10.3 g/dl (12.0-15.5)
[2019-04-27 06:43] LABS: BLOOD UREA NITROGEN 9 MG/DL (7-18); CALCIUM LEVEL 8.7 MG/DL (8.5-10.1); CARBON DIOXIDE LEVEL 24 MEQ/L (21-32); CHLORIDE LEVEL 106 MEQ/L (98-107); CREATININE FOR GFR 0.68 MG/DL (0.55-1.30); GLOMERULAR FILTRATION RATE > 60.0 (>58); GLUCOSE, FASTING 139 MG/DL (70-100); POTASSIUM SERUM 3.9 MEQ/L (3.5-5.1); SODIUM LEVEL 139 MEQ/L (136-145)
[2019-04-27] MEDS: oxyCODONE 15 MG CR TAB PO SCH (08:38)
[2019-04-27] MEDS: SPIRONOLACTONE 50 MG TAB PO SCH (08:39)
[2019-04-27] MEDS: PREGABALIN 75 MG CAP(LYRICA) PO SCH ×3 (08:39→21:00)
[2019-04-27] MEDS ORDERED: IRON SUCROSE 100MG 5ML VIAL (J1756 PER 1MG) IV ONE (10:45)
--- NOTE | 2019-04-27 10:50 | REP ---
Pelvic sonography: History: Menorrhagia. Findings: Transabdominal and transvaginal scanning are performed. Uterine dimensions are normal at 8.2 x 4.2 x 5.6 cm. Endometrial echo is 0.6 cm thick. No focal uterine mass is seen. Normal ovary is seen on the right measuring 2.2 x 1.5 x 2.2 cm. Left ovary dimensions are 3.9 x 2.2 x 2.7 cm. In the left ovary there is a 2.4 cm simple cyst consistent with a follicle cyst. There is a tiny sliver of fluid in the cul-de-sac. Doppler flow is present in both ovaries. Resistive indices are 0.68 on the right and 0.61 on the left. Impression: 2.4 cm follicle cyst left ovary. Normal pelvic sonography. Electronically Signed by Celio Veras MD 04/27/2019 11:00 A
[2019-04-27] MEDS ORDERED: **NOTE PATIENT COMMENT** MISC XX PRN (11:00)
[2019-04-27 11:34] LABS: FOLATE 6.6 NG/ML (>5.4)
[2019-04-27] MEDS ORDERED: IRON SUCROSE 500 MG in NS 250 ML OVER 4 HRS IV ONE (12:00)
[2019-04-27 12:59] LABS: HEMATOCRIT 31.5 % (36.0-47.0); HEMOGLOBIN 9.8 g/dl (12.0-15.5); LYMPH # 0.5 10^3/uL (1.5-5.0); LYMPH % 6.5 % (24.0-44.0); MEAN CORPUSCULAR HEMOGLOBIN 23.4 pg (27.0-33.0); MEAN CORPUSCULAR HGB CONC 31.1 g/dl (32.0-36.5); MEAN CORPUSCULAR VOLUME 75.4 fl (80.0-96.0); MONO # 0.6 10^3/uL (0.0-0.8); MONO % 7.5 % (0.0-5.0); NEUTROPHILS # 7.1 10^3/uL (1.5-8.5); NEUTROPHILS % 85.8 % (36.0-66.0); PLATELET COUNT, AUTOMATED 396 10^3/uL (150-450); RED BLOOD COUNT 4.18 10^6/uL (4.00-5.40); WHITE BLOOD COUNT 8.3 10^3/uL (4.0-10.0)
--- NOTE | 2019-04-27 14:14 | IPNPDOC ---
Subjective Date Seen The patient was seen on 04/27/19. Subjective Chief Complaint/HPI Pt is a 43 year old female who presented to the ED with dyspnea and b/l pain in the legs and calf. Pt is sitting up in bed this morning. She feels much better today. She has some pain in her back she attributes to sleeping in a new bed; otherwise CP is resolved. She has some relief from the pain in her legs today. Pt is very worried about her Dx of ENOCH - she has only ever required Fe when she was Dx and Tx for Hodgkin Lymphoma. She requested to go home today as she has an appt for her granddaughter tomorrow. General: Denies: Chills, Night Sweats, Normal Appetite Constitutional: Denies: Chills, Fever, Malaise, Night Sweats, Weakness Eyes: Denies: Pain ENT: Denies: Head Aches Skin: Denies: Rash Pulmonary: Denies: Dyspnea, Cough, Pleuritic Chest Pain Cardiovascular: Denies: Chest Pain, Palpitations, Orthopnea, Edema, Lt Headedness Gastrointestinal: Denies: Nausea, Vomiting, Abdominal Pain Genitourinary: Denies: Dysuria Hematologic: Denies: Bruising Musculoskeletal: Denies: Neck Pain, Back Pain, Joint Pain, Muscle Pain, Spasms Neurological: Denies: Change in speech, Confusion Psych: Reports: Mood Normal Objective Physical Examination General Exam: Positive: Alert, Cooperative, No Acute Distress Eye Exam: Positive: PERRLA, Conjunctiva & lids normal, EOMI; Negative: Sclera icteric ENT Exam: Positive: Atraumatic, Mucous membr. moist/pink, Pharynx Normal, Tongue Midline Neck Exam: Positive: Supple; Negative: JVD, thyromegaly Chest Exam: Positive: Clear to auscultation, Normal air movement Heart Exam: Positive: Rate Normal, Murmurs (2/6 SM S1S2 intact ); Negative: Gallops, Rubs Abdomen Exam: Positive: Normal bowel sounds, Soft; Negative: Tenderness, Hepatospenomegaly Extremity Exam: Positive: Normal pulses; Negative: Clubbing, Cyanosis, Edema, Tenderness, Swelling Skin Exam: Positive: Nl turgor and temperature Neuro Exam: Positive: Normal Speech, Strength at 5/5 X4 ext Psych Exam: Positive: Mood NL, Oriented x 3 Assessment /Plan Assessment Pt is a 43 year old female who presented to the ED with dyspnea, and pain in b/l calves/legs. Pt stated she had returned from an extended car ride on Saturday when she noted pain, swelling and redness in b/l calves. These Sx resolved during the week, but she also noticed she was becoming short of breath and having sharp pains when she inhaled deeply. The pain is sharp, located over the R side of the lower ribs and resolves when she is no longer taking a deep breath. Pt stated she has a Hx of PE and DVT; she was treated x 1 year and advised to take frequent breaks during long trips etc. Pt stated there is still some swelling in her legs. She also has pain up and down both legs. She has chronic pain from necrosis of b/l femoral heads and needs 2 knee replacements; however she is unsuitable for surgery. Pt stated the last time she was anemic she was Dx with Hodgkin Lymphoma (16yo). She had three periods this month, the last one ended on Saturday. Multiple menses in 1 month is unusual for her. Pt also reported a 20lb unintentional weight loss x 1.5 months. Pt has a PMHx of Hx of Hodgkin Lymphoma, Avascular necrosis b/l femoral heads, Hx of PE, Hx of DVT, HTN, Depression, Anxiety, Bulimia, PTSD, migraines. Chest pain/dyspnea/leg pains CTA IMPRESSION: 1. No filling defects in the pulmonary arteries to suggest pulmonary emboli. 2. Small areas of air trapping, correlate for reactive airways disease or bronchiolitis. Duplex b/l LEs IMPRESSION: No DVT of bilateral lower extremities. CP is longstanding - admitted in 2014 for same complaint; pulmonology Dr. Ge consulted at the time. Unlikely infectious as pt has no leukocytosis, unlikely pulm due to CTA results. Consider MSK origin Symptomatic anemia Ferritin and transferrin low - suggesting likely 2/2 iron deficiency Will transfuse 2 units PRBCs Venifer 500mg transfusion. Re-check CBC pm. Vitamin B12, folate - wnl Repeat CBC qam check FOBT Heme/onc referral outpt Menorrhagia - Patient has reported 3 periods this month - Pelvic USG - "2.4 cm follicle cyst left ovary. Normal pelvic sonography." Chronic pain 2/2 necrosis of b/l femoral heads - continue home pain medications; Lyrica, Long acting Oxycodone and [place] PRN Acne / Facial lesions - c/w Spironolactone - Will hold Azelaic acid and hydroquinone topical creams Dispo: D/C 04/28 if H&H remain stable 24 hours with heme/onc referral RE: ENOCH, reported 20lb unintentional weight loss with Hx of Hodgkin Lymphoma. Plan/VTE VTE Prophylaxis Ordered?: Yes VS, I&O, 24H, Fishbone Vital Signs/I&O Vital Signs Date Time Temp Pulse Resp B/P (MAP) Pulse Ox O2 Delivery O2 Flow Rate FiO2 04/27/19 13:26 97.0 80 17 110/63 (79) 96 Room Air I&O- Last 24 Hours up to 6 AM 04/27/19 06:00 Intake Total 1065 ml Output Total 1300 ml Balance -235 ml Laboratory Data 24H LABS Laboratory Tests 2 04/26/19 19:14: Immature Granulocyte % (Auto) 0.3, Neutrophils (%) (Auto) 66.0, Lymphocytes (%) (Auto) 19.9L, Monocytes (%) (Auto) 8.6H, Eosinophils (%) (Auto) 4.9H, Basophils (%) (Auto) 0.3, Neutrophils # (Auto) 4.1, Lymphocytes # (Auto) 1.3L, Monocytes # (Auto) 0.5, Eosinophils # (Auto) 0.3, Basophils # (Auto) 0.0, Reticulocyte # (auto) 52.3, Nucleated Red Blood Cells % (auto) 0.0, Erythrocyte Sedimentation Rate 34H, Percent Reticulocyte Count 1.6H, Reticulocyte Hemoglobin Equivalent 18.9L, Anion Gap 6L, Glomerular Filtration Rate > 60.0, Calcium Level 7.8L, Iron Level 11L, Total Iron Binding Capacity 405, Transferrin % Saturation 2.7L, Ferritin 6L, Total Bilirubin 0.2, Direct Bilirubin < 0.1, Aspartate Amino Transf (AST/SGOT) 16, Alanine Aminotransferase (ALT/SGPT) 14, Alkaline Phosphatase 52, Lactate Dehydrogenase 249H, Total Creatine Kinase 119, Creatine Kinase MB 1.1, Creatine Kinase MB Relative Index 0.92, Troponin I < 0.02, C-Reactive Protein, Quantitative < 0.30, Total Protein 6.8, Albumin 3.1L, Albumin/Globulin Ratio 0.84L 04/27/19 05:50: Immature Granulocyte % (Auto) 0.4, Neutrophils (%) (Auto) 94.6H, Lymphocytes (%) (Auto) 4.6L, Monocytes (%) (Auto) 0.3, Eosinophils (%) (Auto) 0.0, Basophils (%) (Auto) 0.1, Neutrophils # (Auto) 7.2, Lymphocytes # (Auto) 0.4L, Monocytes # (Auto) 0.0, Eosinophils # (Auto) 0.0, Basophils # (Auto) 0.0, Nucleated Red Blood Cells % (auto) 0.0, Anion Gap 9, Glomerular Filtration Rate > 60.0, Calcium Level 8.7, Magnesium Level 2.0, Vitamin B12 Level 495, Folate 6.6 04/27/19 12:41: Immature Granulocyte % (Auto) 0.2, Neutrophils (%) (Auto) 85.8H, Lymphocytes (%) (Auto) 6.5L, Monocytes (%) (Auto) 7.5H, Eosinophils (%) (Auto) 0.0, Basophils (%) (Auto) 0.0, Neutrophils # (Auto) 7.1, Lymphocytes # (Auto) 0.5L, Monocytes # (Auto) 0.6, Eosinophils # (Auto) 0.0, Basophils # (Auto) 0.0, Nucleated Red Blood Cells % (auto) 0.0 CBC/BMP Laboratory Tests 04/26/19 19:14 04/27/19 05:50 04/27/19 12:41 RUBENS HOUSTON PA-C Apr 27, 2019 14:14
[2019-04-27] MEDS ORDERED: oxyCODONE 15 MG CR TAB PO SCH (18:00)
[2019-04-28 06:00] VITALS: BP 124/66
--- NOTE | 2019-04-28 06:00 | ECGEPIP ---
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
[2019-04-28 06:18] LABS: BASO % 0.3 % (0.0-1.0); EOS # 0.1 10^3/uL (0.0-0.5); EOS % 1.5 % (0.0-3.0); HEMATOCRIT 29.6 % (36.0-47.0); LYMPH # 1.8 10^3/uL (1.5-5.0); LYMPH % 20.5 % (24.0-44.0); MEAN CORPUSCULAR HGB CONC 30.4 g/dl (32.0-36.5); MEAN CORPUSCULAR VOLUME 75.7 fl (80.0-96.0); MONO # 0.6 10^3/uL (0.0-0.8); MONO % 7.2 % (0.0-5.0); NEUTROPHILS # 6.2 10^3/uL (1.5-8.5); NEUTROPHILS % 70.3 % (36.0-66.0); PLATELET COUNT, AUTOMATED 416 10^3/uL (150-450); RED BLOOD COUNT 3.91 10^6/uL (4.00-5.40); WHITE BLOOD COUNT 8.8 10^3/uL (4.0-10.0)
[2019-04-28 06:42] LABS: BLOOD UREA NITROGEN 14 MG/DL (7-18); CALCIUM LEVEL 7.8 MG/DL (8.5-10.1); CARBON DIOXIDE LEVEL 26 MEQ/L (21-32); CHLORIDE LEVEL 112 MEQ/L (98-107); GLOMERULAR FILTRATION RATE > 60.0 (>58); GLUCOSE, FASTING 134 MG/DL (70-100); POTASSIUM SERUM 3.5 MEQ/L (3.5-5.1); SODIUM LEVEL 143 MEQ/L (136-145)
[2019-04-28] MEDS: PREGABALIN 75 MG CAP(LYRICA) PO SCH (08:19)
[2019-04-28] MEDS: SPIRONOLACTONE 50 MG TAB PO SCH (08:20)
[2019-04-28] MEDS: oxyCODONE 15 MG CR TAB PO SCH (08:20)
--- NOTE | 2019-04-28 15:37 | DS.PDOC ---
Discharge Summary General Date of Admission Apr 26, 2019 at 22:23 Date of Discharge 04/28/2019 Discharge Summary PROCEDURES PERFORMED DURING STAY: [None]. ADMITTING DIAGNOSES: 1. Symptomatic anemia 2. Chest pain/dyspnea/leg pains 3. Menorrhagia 4. Chronic pain 2/2 necrosis of b/l femoral heads 5. Acne / Facial lesions DISCHARGE DIAGNOSES: 1. Symptomatic anemia possibly due to acute blood loss anemia on chronic iron deficiecncy anemia 2. Severe Iron deficiency 3. Gastric bypass surgery status and noncompliant with supplements 4. Chronic pain 2/2 necrosis of b/l femoral heads 5. Acne / Facial lesions 6. Menorrhagia with acute blood loss SECONDARY DIAGNOSIS: Hx of Hodgkin Lymphoma Avascular necrosis b/l femoral heads HTN Hx of PE Hx of DVT Depression Anxiety Bulimia PTSD Migraine Gastric bypass surgery COMPLICATIONS/CHIEF COMPLAINT: Symptomatic Anemia. HISTORY OF PRESENT ILLNESS: "Pt is a 43 year old female who presented to the ED with dyspnea, and pain in b/l calves/legs. Pt stated she had returned from an extended car ride on Saturday when she noted pain, swelling and redness in b/l calves. These Sx resolved during the week, but she also noticed she was becoming short of breath and having sharp pains when she inhaled deeply. The pain is located over the R side of the lower ribs and resolves when she isn't taking deep breaths. Pt stated she has a Hx of PE and DVT; she was treated x 1 year and advised to take frequent breaks during long trips etc. Pt stated there is still some swelling in her legs. She also has pain up and down both legs. She has chronic pain from necrosis of b/l femoral heads and needs 2 knee replacements; however she is unsuitable for surgery. Pt stated the last time she was anemic she was Dx with Hodgkin Lymphoma (16yo). She had three periods this month, the last on ended on Saturday. Multiple menses in 1 month is unusual for her. Denied blood in the urine or the stool. Pt also reported a 20lb unintentional weight loss x 1.5 months." HOSPITAL COURSE: Pt was admitted per above and received 2 units PRBCs in the ED. Hgb was 6.7, Ferritin 6 and Fe was 11. She was later transfused with 500mg Venofer which she tolerated well. Hgb went from 6.7 to 10.3 and remained stable for 24hrs around 9. Overnight, the dyspnea, CP and b/l LE pain resolved and patient was anxious to return home to take care of her granddaughter. Pelvic USG for menorrhagia was noncontributory. Pt was very concerned about seeing a workday director as the only other time she suffered from ENOCH was at 16yo when she was Dx with Hodgkin Lymphoma AND she reported an unexplained 20lb weight loss in the last 1.5months; she would like to have further assessment outpt and I agree with her. DISCHARGE MEDICATIONS: Please see below. ALLERGIES: Please see below. PHYSICAL EXAMINATION ON DISCHARGE: VITAL SIGNS: Please see below. General Exam: Positive: Alert, Cooperative, No Acute Distress Eye Exam: Positive: PERRLA, Conjunctiva & lids normal, EOMI; Negative: Sclera icteric ENT Exam: Positive: Atraumatic, Mucous membr. moist/pink, Pharynx Normal, T ongue Midline Neck Exam: Positive: Supple; Negative: JVD, thyromegaly Chest Exam: Positive: Clear to auscultation, Normal air movement Heart Exam: Positive: Rate Normal, Murmurs (2/6 SM S1S2 intact ); Negative: Gallops, Rubs Abdomen Exam: Positive: Normal bowel sounds, Soft; Negative: Tenderness, Hepatospenomegaly Extremity Exam: Positive: Normal pulses; Negative: Clubbing, Cyanosis, Edema, Tenderness, Swelling Skin Exam: Positive: Nl turgor and temperature Neuro Exam: Positive: Normal Speech, Strength at 5/5 X4 ext Psych Exam: Positive: Mood NL, Oriented x 3 LABORATORY DATA: Please see below. IMAGING: CTA IMPRESSION: 1. No filling defects in the pulmonary arteries to suggest pulmonary emboli. 2. Small areas of air trapping, correlate for reactive airways disease or bronchiolitis. Duplex b/l LEs IMPRESSION: No DVT of bilateral lower extremities. CP is longstanding - admitted in 2015 for same complaint; pulmonology Dr. Ge consulted at the time. ACTIVITY: [As tolerated]. DIET: As tolerated DISCHARGE PLAN: Discharge home with heme/onc f/u re: weight loss and ENOCH DISPOSITION: 01 Home, Self-Care. DISCHARGE INSTRUCTIONS: 1. f/u with pcp 3-5 days 2. referral to heme/onc re: unexplained weight loss and ENOCH ITEMS TO FOLLOWUP ON ON OUTPATIENT: 1. f/u with pcp 3-5 days 2. referral to heme/onc re: unexplained weight loss and ENOCH DISCHARGE CONDITION: [Stable]. TIME SPENT ON DISCHARGE: 33 minutes Vital Signs/I&Os Vital Signs Date Time Temp Pulse Resp B/P (MAP) Pulse Ox O2 Delivery O2 Flow Rate FiO2 04/28/19 08:20 17 04/28/19 06:00 97.8 71 124/66 (85) 97 04/27/19 21:33 Room Air I&O- Last 24 Hours up to 6 AM 04/28/19 06:00 Intake Total 1200 ml Output Total 850 ml Balance 350 ml Laboratory Data Labs 24H Laboratory Tests 2 04/28/19 06:01: Immature Granulocyte % (Auto) 0.2, Neutrophils (%) (Auto) 70.3H, Lymphocytes (%) (Auto) 20.5L, Monocytes (%) (Auto) 7.2H, Eosinophils (%) (Auto) 1.5, Basophils (%) (Auto) 0.3, Neutrophils # (Auto) 6.2, Lymphocytes # (Auto) 1.8, Monocytes # (Auto) 0.6, Eosinophils # (Auto) 0.1, Basophils # (Auto) 0.0, Nucleated Red Blood Cells % (auto) 0.0, Anion Gap 5L, Glomerular Filtration Rate > 60.0, Calcium Level 7.8L, Magnesium Level 2.0 CBC/BMP Laboratory Tests 04/28/19 06:01 Discharge Medications Scheduled Botulinum Toxin Type A (Botox) 100 Units Soln, 100 UNITS IM Q3M, (Reported) Hydroquinone (Hydroquinone) 28.35 Gm Cream..g., 1 APPLIC TOP DAILY, (Reported) Oxycodone HCl (Oxycontin) 30 Mg Tab.er.12h, 30 MG PO QAM, (Reported) Oxycodone HCl (Oxycontin) 15 Mg Tab.er.12h, 15 MG PO QPM, (Reported) Pregabalin (Lyrica) 150 Mg Cap, 150 MG PO TID, (Reported) Spironolactone (Spironolactone) 100 Mg Tablet, 100 MG PO DAILY, (Reported) Scheduled PRN Azelaic Acid (Azelex) 30 Gm Cream..g., 1 APPLIC TOP DAILY PRN for RASH, (Reported) Hydrocodone/Acetaminophen (Hydrocodone-Acetamin 10-325 mg) 1 Tab Tab, 10-325 MG PO Q4HP PRN for PAIN, (Reported) Lidocaine (Lidoderm) 5 % Dis, 1 PATCH TOP DAILY PRN for PAIN, (Reported) Allergies Coded Allergies: Contrast Media (Verified Allergy, Mild, HIVES, 04/26/19) latex (Verified Allergy, Mild, HIVES, 04/26/19) RUBENS HOUSTON PA-C Apr 28, 2019 15:37 BRANDEE AUGUSTINE MD Apr 28, 2019 21:57
== END 2019-04-28 12:57 | disposition home or self-care (01) | DRG 812 ==
LOC: M ED 18:10 → M ED INP 22:23 → ENRESERVDT 22:44 → ENRESERVTM 22:44 → M MSPAV 23:04
PROVIDERS: ADMIT Internal Medicine; ATTEND Internal Medicine Nephrology
PROC: 30233N1 Transfusion of Nonautologous Red Blood Cells into Peripheral Vein, Percutaneous Approach (ICD-10-PCS; principal; 2019-04-26)
DX: D62 Acute posthemorrhagic anemia (principal); M87.051 Idiopathic aseptic necrosis of right femur; M87.052 Idiopathic aseptic necrosis of left femur; N92.0 Excessive and frequent menstruation with regular cycle; G89.29 Other chronic pain; L70.9 Acne, unspecified; D50.9 Iron deficiency anemia, unspecified; F17.200 Nicotine dependence, unspecified, uncomplicated; Z85.79 Personal history of other malignant neoplasms of lymphoid, hematopoietic and related tissues; R63.4 Abnormal weight loss; Z86.711 Personal history of pulmonary embolism; Z86.718 Personal history of other venous thrombosis and embolism; F32.9 Major depressive disorder, single episode, unspecified; F41.9 Anxiety disorder, unspecified; F43.10 Post-traumatic stress disorder, unspecified; Z98.84 Bariatric surgery status; Z79.891 Long term (current) use of opiate analgesic; Z79.899 Other long term (current) drug therapy; Z91.040 Latex allergy status; Z91.041 Radiographic dye allergy status

== ENCOUNTER 2019-06-12 11:13 | Emergency (ER) | payer MEDICARE, OTHER ==
[~2019-06-12] VITALS: Ht 165.1 cm; Wt 68.2 kg
[~2019-06-12 11:13] MED LIST changes: +AZEL20CR TOP; +HYDR4CRE TOP; +OXYC15TA66 PO; +OXYC30TA72 PO; +SPIR100T3 PO
--- NOTE | 2019-06-12 12:19 | REP ---
CHEST, SINGLE VIEW: There is no evidence of acute infiltrate. No pleural effusion is seen. The heart is normal in size. The mediastinal silhouette is unremarkable. The visualized osseous structures are intact. IMPRESSION: No acute pulmonary disease. Electronically Signed by Cal Torres MD 06/16/2019 03:32 P
[2019-06-12 13:04] LABS: BASO % 0.3 % (0.0-1.0); EOS # 0.2 10^3/uL (0.0-0.5); EOS % 1.8 % (0.0-3.0); HEMATOCRIT 37.5 % (36.0-47.0); HEMOGLOBIN 11.8 g/dl (12.0-15.5); LYMPH # 0.9 10^3/uL (1.5-5.0); LYMPH % 10.4 % (24.0-44.0); MEAN CORPUSCULAR HEMOGLOBIN 26.2 pg (27.0-33.0); MEAN CORPUSCULAR HGB CONC 31.5 g/dl (32.0-36.5); MEAN CORPUSCULAR VOLUME 83.3 fl (80.0-96.0); MONO # 0.7 10^3/uL (0.0-0.8); MONO % 7.6 % (0.0-5.0); NEUTROPHILS # 7.1 10^3/uL (1.5-8.5); NEUTROPHILS % 79.6 % (36.0-66.0); PLATELET COUNT, AUTOMATED 178 10^3/uL (150-450)
[2019-06-12] MEDS ORDERED: diphenhydrAMINE INJ 50MG/ML VIAL (J1200) IV STA (13:18)
[2019-06-12 13:27] LABS: BLOOD UREA NITROGEN 11 MG/DL (7-18); CALCIUM LEVEL 8.6 MG/DL (8.5-10.1); CARBON DIOXIDE LEVEL 29 MEQ/L (21-32); CHLORIDE LEVEL 106 MEQ/L (98-107); CK-MB VALUE MASS < 1.0 NG/ML (<3.6); CPK CREATINE PHOSPHOKINASE 100 U/L (26-192); CREATININE FOR GFR 0.79 MG/DL (0.55-1.30); GLOMERULAR FILTRATION RATE > 60.0 (>58); GLUCOSE, FASTING 95 MG/DL (70-100); POTASSIUM SERUM 4.2 MEQ/L (3.5-5.1); SODIUM LEVEL 137 MEQ/L (136-145); TROPONIN I < 0.02 NG/ML (< 0.10)
[2019-06-12] MEDS ORDERED: ASPIRIN 81 MG CHEW TABLET PO ONE (13:30)
[2019-06-12] MEDS ORDERED: methylPREDNISolone INJ 125 MG/2 ML VIAL (J2930) IV ONE (13:30)
[2019-06-12] MEDS ORDERED: NS 1,000 ML IV ONE (13:30)
[2019-06-12 14:15] VITALS: BP 110/58
[2019-06-12] MEDS ORDERED: ISOVUE-370 76% 100ML VIAL (Q9967) As Ordered ONE (14:55)
--- NOTE | 2019-06-12 15:30 | REPVR ---
PROCEDURE INFORMATION: Exam: CT Angiography Head With Contrast Exam date and time: 06/12/2019 2:59 PM Age: 43 years old Clinical indication: Dizziness and giddiness and other: Blurred vision; Additional info: Dizziness, blurred vision eval for intracranial process TECHNIQUE: Imaging protocol: Computed tomography angiography of the head with intravenous contrast. 3D rendering: MIP and/or 3D reconstructed images were created by the technologist. Radiation optimization: All CT scans at this facility use at least one of these dose optimization techniques: automated exposure control; mA and/or kV adjustment per patient size (includes targeted exams where dose is matched to clinical indication); or iterative reconstruction. Contrast material: ISOVUE 370; Contrast volume: 100 ml; Contrast route: IV; COMPARISON: CT Head without contrast 02/09/2013 7:19 PM FINDINGS: Right internal carotid artery: Unremarkable. Intracranial segment is patent with no significant stenosis. No aneurysm. Right anterior cerebral artery: Unremarkable. No occlusion or significant stenosis. No aneurysm. Right middle cerebral artery: Unremarkable. No occlusion or significant stenosis. No aneurysm. Right posterior cerebral artery: Unremarkable. No occlusion or significant stenosis. No aneurysm. Right vertebral artery: Unremarkable. No occlusion or significant stenosis. No aneurysm. Left internal carotid artery: Unremarkable. Intracranial segment is patent with no significant stenosis. No aneurysm. Left anterior cerebral artery: Unremarkable. No occlusion or significant stenosis. No aneurysm. Left middle cerebral artery: Unremarkable. No occlusion or significant stenosis. No aneurysm. Left posterior cerebral artery: Unremarkable. No occlusion or significant stenosis. No aneurysm. Left vertebral artery: Unremarkable. No occlusion or significant stenosis. No aneurysm. Basilar artery: Unremarkable. No occlusion or significant stenosis. No aneurysm. IMPRESSION: No stenosis. No occlusion. No aneurysm. Electronically signed by: Lam Gleason On 06/12/2019 15:30:31 PM
--- NOTE | 2019-06-12 15:33 | REPVR ---
PROCEDURE INFORMATION: Exam: CT Head Without Contrast Exam date and time: 06/12/2019 2:59 PM Age: 43 years old Clinical indication: Dizziness and visual disturbance; Additional info: Dizziness, blurred vision TECHNIQUE: Imaging protocol: Computed tomography of the head without contrast. Radiation optimization: All CT scans at this facility use at least one of these dose optimization techniques: automated exposure control; mA and/or kV adjustment per patient size (includes targeted exams where dose is matched to clinical indication); or iterative reconstruction. COMPARISON: CT Head without contrast 02/09/2013 7:19 PM FINDINGS: Brain: Examination of the brain demonstrates normal structure and attenuation.The cortical richards / white matter interfaces are preserved throughout the brain.No acute infarction, masses or hemorrhage is seen. No acute intracranial abnormality is identified.There is no hyperdense MCA sign. Examination of the posterior fossa demonstrates no significant abnormality. Ventricles: The ventricular system is not dilated and is appropriate for the patient's age. Bones/joints: Unremarkable. No acute fracture. Sinuses: Visualized sinuses are unremarkable. No fluid levels. Mastoid air cells: Visualized mastoid air cells are well aerated. Soft tissues: Unremarkable. IMPRESSION: No acute infarction, masses or hemorrhage is seen. No acute intracranial abnormality is identified. Electronically signed by: Lam Gleason On 06/12/2019 15:33:00 PM
--- NOTE | 2019-06-12 15:38 | REPVR ---
PROCEDURE INFORMATION: Exam: CT Angiography Neck With Contrast Exam date and time: 06/12/2019 2:59 PM Age: 43 years old Clinical indication: Dizziness and giddiness and other: Blurred vision; Additional info: Dizziness, blurred vision eval for intracranial process TECHNIQUE: Imaging protocol: Computed tomography angiography of the neck with intravenous contrast. 3D rendering: MIP and/or 3D reconstructed images were created by the technologist. Radiation optimization: All CT scans at this facility use at least one of these dose optimization techniques: automated exposure control; mA and/or kV adjustment per patient size (includes targeted exams where dose is matched to clinical indication); or iterative reconstruction. Contrast material: ISOVUE 370; Contrast volume: 100 ml; Contrast route: IV; COMPARISON: PT PET/CT Skull/mid thigh 08/29/2016 1:14 PM FINDINGS: VASCULATURE: Right common carotid artery: Unremarkable. No stenosis. No dissection or occlusion. Right internal carotid artery: Unremarkable extracranial segment. No stenosis. No dissection or occlusion. Right external carotid artery: Unremarkable. No occlusion or stenosis of the origin. Right vertebral artery: Unremarkable. No stenosis. No dissection or occlusion. Left common carotid artery: Unremarkable. No stenosis. No dissection or occlusion. Left internal carotid artery: Unremarkable extracranial segment. No stenosis. No dissection or occlusion. Left external carotid artery: Unremarkable. No occlusion or stenosis of the origin. Left vertebral artery: Unremarkable. No stenosis. No dissection or occlusion. Other vasculature: Mild Chronic interstitial changes are noted along the medial aspect of bilateral upper lobes. NECK: Bones/joints: There is straightening of the cervical spine which could be secondary to positioning or muscle spasm. The cervical spine demonstrates marked degenerative changes at multiple levels. Soft tissues: Normal. No significant soft tissue swelling. IMPRESSION: No stenosis. No occlusion. No dissection. COMMENTS: Using NASCET method for measuring degree of carotid artery stenosis: Mild is less than 50% stenosis. Moderate is 50-69% stenosis. Severe is 70-94% stenosis. Near occlusion is 95-99% stenosis. Electronically signed by: Lam Gleason On 06/12/2019 15:37:39 PM
--- NOTE | 2019-06-13 18:31 | ECGEPIP ---
[facility] - ED Test Date: 2019-06-12 Pat Name: TORY TIRADO Department: Room: - Gender: Female [employer] Consultant: MARIBETH : 1975 Requested By: Sadi Garcia Order Number: [id number] Reading MD: Areli Powers Measurements Intervals [place] Rate: 67 P: 28 [place]: 158 QRS: 26 QRSD: 98 T: 13 QT: 413 QTc: 438 Interpretive Statements SINUS RHYTHM SIMILAR 04/26/19 Electronically Signed on 06-13-2019 18:31:02 EST by Areli Powers
== END 2019-06-12 16:43 | disposition home or self-care (01) ==
LOC: M ED 11:13
DX: R07.89 Other chest pain (principal); R42 Dizziness and giddiness; M79.7 Fibromyalgia; F41.9 Anxiety disorder, unspecified; G47.33 Obstructive sleep apnea (adult) (pediatric); D64.9 Anemia, unspecified; Z98.84 Bariatric surgery status; Z79.899 Other long term (current) drug therapy; Z91.040 Latex allergy status; Z91.041 Radiographic dye allergy status; F17.210 Nicotine dependence, cigarettes, uncomplicated
CPT/HCPCS: 36415; 70450; 70496; 70498; 71045; 80048; 82550; 82553; 84484; 85025; 85379; 93005; 93041; 94760; 96361; 96374; 96375; 99285; J1200; J2930; Q9967

== ENCOUNTER → 2019-06-16 | Outpatient (CLI) | payer MEDICARE, OTHER ==
--- NOTE | 2019-06-18 00:06 | ECWPNPC ---
PATIENT NAME: TORY TIRADO : 1975 GENDER: FEMALE VISIT DATE: 06/16/2019 DISCHARGE DATE: 06/16/19 0958 VISIT LOCKED DATE TIME: PHYSICIAN: PATRIZIA WILLAMS RESOURCE: PATRIZIA WILLAMS REASON FOR APPOINTMENT 1. MED MNGMNT HISTORY OF PRESENT ILLNESS HISTORY OF PRESENT ILLNESS: HERE FOR ROUTINE F/U AND MEDICINE MANAGEMENT OF CHRONIC LBP AND HIP PAIN.HX OF AVASCULAR NECROSIS BILAT. HIPS.FEELS CURRENT CHRONIC PAIN MEDICINE IS HELPFUL AT REDUCING PAIN AND KEEPING HER COMFORTABLE.RATING PAIN VAS 10/10. PAIN THE PATIENT DESCRIBES THE PAIN... FALL RISK SCREENING: SCREENING :NO FALLS REPORTED IN THE LAST YEAR CURRENT MEDICATIONS TAKING BOTOX 200 UNIT SOLUTION RECONSTITUTED INJECTION Q 3MOS TAKING FUSION 65-65-25-30 MG 4 ORALLY DAILY TAKING SPIRONOLACTONE 100 MG TABLET 1 TABLET ORALLY BID TAKING AZELEX 20 % CREAM 1 APPLICATION TO AFFECTED AREA EXTERNALLY TWICE A DAY TAKING TYLENOL ORAL PRN TAKING LIDODERM 5 % PATCH 1 PATCH TO INTACT SKIN REMOVE AFTER 12 HOURS EXTERNALLY ONCE A DAY NEEDED, NOTES: PRN NEED TAKING OXYCONTIN 15 MG TABLET ER 12 HOUR ABUSE-DETERRENT ORALLY DAILY, NOTES: AT BED TIME TAKING HYDROCODONE-ACETAMINOPHEN 10-325 MG TABLET 1/2 -1 TAB ORALLY Q6H MDD4 NEEDED, NOTES: FOUR TIMES DAILY TAKING OXYCONTIN 30 MG TABLET ER 12 HOUR ABUSE-DETERRENT 1 TABLET ORALLY DAILY AT BEDTIME MDD1, NOTES: ONCE A DAY TAKING LYRICA 200 MG CAPSULE 1 TAB ORALLY 3 TIMES A DAY MEDICATION LIST REVIEWED AND RECONCILED WITH THE PATIENT PAST MEDICAL HISTORY MIGRIANES VOCAL CORD POLYPS PTSD ANXIETY/DEPRESSION HODGKINS LYMPHOMA CHRONIC PAIN 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 MOM-THYROID CADAD-EMPHYSEMA. SOCIAL HISTORY GENERAL: TOBACCO USE ARE YOU A:CURRENT SMOKER HOW MANY CIGARETTES A DAY DO YOU SMOKE?5 OR LESS HOW SOON AFTER YOU WAKE UP DO YOU SMOKE YOUR FIRST CIGARETTE?AFTER 60 MIN HOW OFTEN DO YOU SMOKE CIGARETTES?SOME DAYS, BUT NOT EVERY DAY PATIENT COUNSELED ON THE DANGERS OF TOBACCO USE AND URGED TO QUIT:06/16/2019 SMOKING CESSATION INFORMATION GIVEN11/13/2017 PAIN CLINIC PFS, CLERGY, PUBLIC HEALTH REFERRALS PFS REFERRAL NEEDED?NO CLERGY REFERRAL NEEDED?NO PUBLIC HEALTH REFERRAL NEEDED?NO WAS THE PROVIDER NOTIFIED OF ANY PERTINENT INFO?NO HAS THE PATIENT BEEN EDUCATED REGARDING HIS/HER PLAN OF CARE?YES HAS THE PATIENT BEEN EDUCATED REGARDING PAIN, THE RISK FOR PAIN, THE IMPORTANCE OF EFFECTIVE PAIN MANAGEMENT, AND THE PAIN ASSESSMENT PROCESS?YES LATEX QUESTIONNAIRE LATEX ALLERGY : HAVE YOU EVER DEVELOPED ANY TYPE OF REACTION AFTER HANDLING LATEX PRODUCTS SUCH RUBBER GLOVES, CONDOMS, DIAPHRAGMS, BALLOONS, SOCKS, OR UNDERWEAR?YES PT ALLERGIC TO LATEX DATE ASKED : 09/15/2018 ADVANCE DIRECTIVE ADVANCE DIRECTIVE DISCUSSED WITH PATIENT:YES DECLINED INFORMATION AND ASSISTANCE WTIH FORM AT THIS TIME. MANDAEISM [id number] ANGLICAN LANGUAGE LANGUAGES SPOKEN:ECUADOREAN RECREATIONAL DRUG USE DRUG USE?NO LEARNING BARRIERS / SPECIAL NEEDS BARRIERS TO LEARNING?NO HEARING IMPAIRED?NO VISION IMPAIRED?YES COGNITIVELY IMPAIRED?NO :CORRECTIVE LENSES READINESS TO LEARN?YES LEARNING PREFERENCES?NO LEARNING CAPABILITIES PRESENT?YES EMOTIONAL BARRIERS?NO SPECIAL DEVICES?NO MEDICAL RECORD CONSULTANT NEEDED?NO REVIEWED WITH PATIENT 01/13/18 0951 JSREVIEWED WITH PT 09/15/18 1023 BVREVIEWED WITH PATIENT 12/12/18 1107 NLJ. HOSPITALIZATION/MAJOR DIAGNOSTIC PROCEDURE BULIMIA REVIEW OF SYSTEMS REVIEWED BY: PROVIDER: PATRIZIA PRICE . CONSTITUTIONAL: ANY CHANGE IN YOUR MEDICAL CONDITION? ANEMIA . CHILLS NO . FEVER NO . INFECTION: DO YOU HAVE NEW INFECTIONS? NO . DO YOU HAVE HISTORY OF MRSA? NO . MUSCULOSKELETAL: ANY NEW PATTERNS OF PAIN OR NUMBNESS? YES, LBP HAS INCREASED . GASTROENTEROLOGY: ANY NEW CHANGE IN BOWEL CONTROL? NO . GENITOURINARY: ANY NEW CHANGE IN BLADDER CONTROL? NO . IS THERE A CHANCE YOU COULD BE ? NO . HEMATOLOGY/LYMPH: DO YOU TAKE ANY BLOOD THINNERS? (FOR EXAMPLE- COUMADIN, PLAVIX, AGGRENOX, PLATEL, PRADAXA, OR XARELTO) NO . WHEN WAS YOUR LAST DOSE? DATE: TIME: . NEUROLOGY: HAVE YOU FALLEN IN THE PAST 12 MONTHS? NO . ANY NEW EXTREMITY NUMBNESS OR WEAKNESS? NO . CARDIOLOGY: DO YOU HAVE A PACEMAKER OR DEFIBRILLATOR? NO . RESPIRATORY: HAVE YOU BEEN SICK IN THE PAST WEEK? NO . FEVER NO . FLU LIKE SYMPTOMS? NO . COUGH NO . INTEGUMENTARY: DO YOU HAVE ANY RASHES OR OPEN SORES? NO . ALLERGIC/IMMUNO: ARE YOU ALLERGIC TO IV DYE? YES . ANY NEW ALLERGIES? NO . PSYCHIATRIC: DO YOU HAVE THOUGHTS OF HURTING YOURSELF OR SOMEONE ELSE? NO . ARE YOU ABUSED, NEGLECTED, OR IN AN UNSAFE ENVIRONMENT? NO . ENDOCRINOLOGY: ARE YOU DIABETIC? NO . OTHER: DO YOU NEED ANY PRESCRIPTIONS? NORCO, OXYCONTIN, LYRICA . IF YES, PLEASE LIST: ____ . ANY NEW PROBLEMS WITH YOUR MEDICATIONS? NO . WHEN DID YOU LAST EAT? ____ . WHEN DID YOU LAST DRINK? ____ . WHAT DID YOU LAST DRINK? ____ . NAME OF PERSON DRIVING YOU HOME? ____ . DO YOU HAVE ANY OTHER QUESTIONS OR CONCERNS NO . VITAL SIGNS WT 160.6 LBS, HT 63 IN, BMI 28.45 INDEX, BP 144/69 MM HG, HR 59 /MIN, RR 16 /MIN, TEMP 98.5 F, OXYGEN SAT % 100%, SAFE IN ENV? (Y/N) Y, NA INITIALS TL 0915, REVIEWED BY: ROBBIN. EXAMINATION GENERAL EXAMINATION: GENERALAWAKE,ALERT ,PLEAASANT . PSYCHAFFECT NORMAL . LUNGS:LUNG BENNETT ARE CLEAR TO AUSCULTATION BILATERALLY. GOOD MOVEMENT OF AIR . HEART:S1, S2 IN A REGULAR RATE AND RHYTHM. NO SIGNIFICANT MURMURS, RUBS OR GALLOPS NOTED . ASSESSMENTS BILATERAL LOW BACK PAIN, WITH SCIATICA PRESENCE UNSPECIFIED - M54.5 (PRIMARY) CHRONIC PRESCRIPTION OPIATE USE - Z79.891 TREATMENT BILATERAL LOW BACK PAIN, WITH SCIATICA PRESENCE UNSPECIFIED REFILL OXYCONTIN TABLET ER 12 HOUR ABUSE-DETERRENT, 15 MG, ORALLY, DAILY, NOTES: AT BED TIME REFILL HYDROCODONE-ACETAMINOPHEN TABLET, 10-325 MG, 1/2 -1 TAB, ORALLY, Q6H MDD4 NEEDED, NOTES: FOUR TIMES DAILY REFILL LYRICA CAPSULE, 200 MG, 1 TAB, ORALLY, 3 TIMES A DAY NOTES: ISTOP REGISTRY REVIEWED AND DEMONSTRATES COMPLLIANCE. BRINGS IN MEDICATIONS WHICH IS APPROPRIATE FOR WHAT WAS DISPENSED. RECENT URINE TOXICOLOGY REVIEWED. NO UNAUTHORIZED MEDICATIONS. NO ILLICIT SUBSTANCES AND PRESCRIBED MEDICATIONS WERE PRESENT. , RISKS OF NARCOTIC/OPIOD MEDICATIONS INCLUDES BUT IS NOT LIMITED TO RISK OF DEPENDANCE/DEVELOPMENT OF ADDICTION, MOOD DISTURBANCE AND DEPRESSION, OSTEOPOROSIS, HORMONAL AND LABIDAL CHANGES, RESPIRATORY DEPRESSION AND . PATIENT IS ADVISED NOT TO DRIVE OR DRINK ALCOHOL WHILE ON THESE MEDICATIONS, REVIEWED WITH PATIENT THE POTENTIAL RISK OF INCREASED SEDATION, RESPIRATORY SUPPRESSION AND WITH THE COMBINATION OF BENZODIAZAPINE AND OPIOD MEDICATIONS. PATIENT STATES HE UNDERSTANDS THIS RISK AND WISHES TO CONTINUE WITH THERAPY. PROCEDURE CODES FA211 ESTABILISHED PATIENT [facility] CHARGE DISPOSITION & COMMUNICATION FOLLOW UP 3 MONTHS (REASON: MED MGMNT) ELECTRONICALLY SIGNED BY ALBERT BRITTON ON 06/17/2019 AT 09:40 AM EDT DISCLAIMER : THIS IS A VISIT SUMMARY EXTRACTED FROM THE [employer] CHART. IT IS NOT A COPY OF THE [employer] PROGRESS NOTE. ELIGIO
== END ==
LOC: M PAIN 09:00
PROVIDERS: ATTEND Nurse Practitioner Family
DX: M54.5 Low back pain (principal); Z79.891 Long term (current) use of opiate analgesic

== ENCOUNTER → 2019-09-17 | Outpatient (CLI) | payer MEDICARE, OTHER ==
--- NOTE | 2019-09-19 03:21 | ECWPNPC ---
PATIENT NAME: TORY TIRADO : 1975 GENDER: FEMALE VISIT DATE: 09/17/2019 DISCHARGE DATE: 09/17/19 1256 VISIT LOCKED DATE TIME: PHYSICIAN: PATRIZIA WILLAMS RESOURCE: PATRIZIA WILLAMS REASON FOR APPOINTMENT 1. 3 MONTHS (REASON: MED MGMNT; [phone] HISTORY OF PRESENT ILLNESS GENERAL: PATIENT IS AGREEABLE TO TELEMED VISIT VIA ZOOM. THIS IS A THREE-MONTH MEDICINE MANAGEMENT FOLLOW-UP. OVERALL DOING WELL WITH CURRENT CHRONIC PAIN MEDICATIONS. DENIES ADVERSE SIDE EFFECTS. SUFFERS FROM CHRONIC BILATERAL HIP AND LOW BACK PAIN. DISCUSSED MEDICATION AND TREATMENT PLAN.-. FALL RISK SCREENING: SCREENING :ONE FALL WITH INJURY IN THE PAST YEAR PAIN SCREENING: PATIENT HAS A COMPLAINT OF ACUTE OR CHRONIC PAIN :YES 09/17/19 INTENSITY OF PAIN (SCALE OF 1 TO 10):7 WHAT DOES YOUR PAIN FEEL LIKE:ACHING, CONTINOUS PAIN IS INCREASED BY: WALKING, STANDING, SITTING PAIN IS DECREASED BY: REPOSITIONING NURSING NOTE: -. PAIN CENTER INTAKE QUESTIONS: DO YOU HAVE A HISTORY OF MRSA? :NO DO YOU TAKE A BLOOD THINNERS? :NO DO YOU HAVE ANY BLEEDING DISORDERS? :NO ANY NEW NUMBNESS OR WEAKNESS IN YOUR LEGS OR ARMS? :NO ANY PACEMAKER,DEFIBRILLATOR, OR DORSAL COLUMN STIMULATOR? :NO DO YOU HAVE ANY RASHES OR OPEN SORES? :YES OPEN SORE TO FOREHEAD S/P FALL ARE YOU ALLERGIC TO IV DYE? :NO ARE YOU DIABETIC? :NO ANY NEW PROBLEMS WITH YOUR MEDICATIONS? :NO HAVE YOU RECEIVED A VACCINE IN THE PAST 30 DAYS? :NO DO YOU PLAN TO RECEIVE A VACCINE IN THE NEXT 21 DAYS? :NO DO YOU NEED ANY PRESCRIPTION? :NO DO YOU TAKE ANY IMMUNOSUPPRESSIVE MEDICATIONS? :NO IS THERE A CHANCE YOU COULD BE ? :NO ARE YOU BREAST FEEDING? :NO CURRENT MEDICATIONS TAKING BOTOX 200 UNIT SOLUTION RECONSTITUTED INJECTION Q 3MOS TAKING FUSION 65-65-25-30 MG 4 ORALLY DAILY TAKING SPIRONOLACTONE 100 MG TABLET 1 TABLET ORALLY BID TAKING AZELEX 20 % CREAM 1 APPLICATION TO AFFECTED AREA EXTERNALLY TWICE A DAY TAKING TYLENOL ORAL PRN TAKING LIDODERM 5 % PATCH 1 PATCH TO INTACT SKIN REMOVE AFTER 12 HOURS EXTERNALLY ONCE A DAY NEEDED, NOTES: PRN NEED TAKING LYRICA 200 MG CAPSULE 1 TAB ORALLY 3 TIMES A DAY TAKING HYDROCODONE-ACETAMINOPHEN 10-325 MG TABLET 1/2 -1 TAB ORALLY Q6H MDD4 NEEDED, NOTES: FOUR TIMES DAILY TAKING OXYCONTIN 15 MG TABLET ER 12 HOUR ABUSE-DETERRENT ORALLY DAILY, NOTES: AT BED TIME TAKING OXYCONTIN 30 MG TABLET ER 12 HOUR ABUSE-DETERRENT 1 TABLET ORALLY DAILY AT BEDTIME MDD1, NOTES: ONCE A DAY TAKING HYDROQUINONE 4 % CREAM DIRECTED EXTERNALLY TAKING MULTIVITAMIN ADULT - TABLET DIRECTED ORALLY MEDICATION LIST REVIEWED AND RECONCILED WITH THE PATIENT PAST MEDICAL HISTORY MIGRIANES VOCAL CORD POLYPS PTSD ANXIETY/DEPRESSION HODGKINS LYMPHOMA CHRONIC PAIN 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 MOM-THYROID CADAD-EMPHYSEMA. SOCIAL HISTORY GENERAL: TOBACCO USE ARE YOU A:CURRENT SMOKER ARE YOU INTERESTED IN QUITTING?NOT READY TO QUIT COUNSELED THE PATIENT ON SMOKING EFFECTS, EDUCATION [id number]/11/2020 HOW MANY CIGARETTES A DAY DO YOU SMOKE?5 OR LESS HOW SOON AFTER YOU WAKE UP DO YOU SMOKE YOUR FIRST CIGARETTE?AFTER 60 MIN HOW OFTEN DO YOU SMOKE CIGARETTES?SOME DAYS, BUT NOT EVERY DAY PATIENT COUNSELED ON THE DANGERS OF TOBACCO USE AND URGED TO QUIT:06/16/2019 SMOKING CESSATION INFORMATION GIVEN11/13/2017 LATEX QUESTIONNAIRE LATEX ALLERGY : HAVE YOU EVER DEVELOPED ANY TYPE OF REACTION AFTER HANDLING LATEX PRODUCTS SUCH RUBBER GLOVES, CONDOMS, DIAPHRAGMS, BALLOONS, SOCKS, OR UNDERWEAR?YES PT ALLERGIC TO LATEX DATE ASKED : 09/17/2019 RECREATIONAL DRUG USE DRUG USE?NO RESTORATIONIST [id number] JEW LANGUAGE LANGUAGES SPOKEN:YEMENI LEARNING BARRIERS / SPECIAL NEEDS BARRIERS TO LEARNING?NO HEARING IMPAIRED?NO VISION IMPAIRED?YES COGNITIVELY IMPAIRED?NO :CORRECTIVE LENSES READINESS TO LEARN?YES LEARNING PREFERENCES?NO LEARNING CAPABILITIES PRESENT?YES EMOTIONAL BARRIERS?NO SPECIAL DEVICES?NO LADLER NEEDED?NO PAIN CLINIC PFS, CLERGY, PUBLIC HEALTH REFERRALS PFS REFERRAL NEEDED?NO CLERGY REFERRAL NEEDED?NO PUBLIC HEALTH REFERRAL NEEDED?NO WAS THE PROVIDER NOTIFIED OF ANY PERTINENT INFO?NO HAS THE PATIENT BEEN EDUCATED REGARDING HIS/HER PLAN OF CARE?YES HAS THE PATIENT BEEN EDUCATED REGARDING PAIN, THE RISK FOR PAIN, THE IMPORTANCE OF EFFECTIVE PAIN MANAGEMENT, AND THE PAIN ASSESSMENT PROCESS?YES ADVANCE DIRECTIVE ADVANCE DIRECTIVE DISCUSSED WITH PATIENT:YES DECLINED INFORMATION AND ASSISTANCE WTIH FORM AT THIS TIME. REVIEWED WITH PATIENT 01/13/18 0951 JSREVIEWED WITH PT 09/15/18 1023 BVREVIEWED WITH PATIENT 12/12/18 1107 NLJ. HOSPITALIZATION/MAJOR DIAGNOSTIC PROCEDURE BULIMIA REVIEW OF SYSTEMS CONSTITUTIONAL: ANY RECENT FEVER OR ILLNESS NO . CHILLS NO . GASTROENTEROLOGY: BOWEL INCONTINENCE NO . ANY NEW CHANGE IN BOWEL CONTROL? NO . ABDOMINAL PAIN NO . CONSTIPATION NO . GENITOURINARY: ANY NEW CHANGE IN BLADDER CONTROL? NO . IS THERE A CHANCE YOU COULD BE ? NO . URINARY INCONTINENCE NO . CARDIOLOGY: CHEST PRESSURE NO . CHEST PAIN NO . RESPIRATORY: COUGH NO . SHORTNESS OF BREATH NO . EXAMINATION GENERAL EXAMINATION: GENERALNO ACUTE DISTRESS, WELL NOURISHED AND HYDRATED. ASSESSMENTS BILATERAL LOW BACK PAIN, WITH SCIATICA PRESENCE UNSPECIFIED - M54.5 (PRIMARY) AVASCULAR NECROSIS OF BONES OF BOTH HIPS - M87.051 CHRONIC PRESCRIPTION OPIATE USE - Z79.899 TREATMENT BILATERAL LOW BACK PAIN, WITH SCIATICA PRESENCE UNSPECIFIED CONTINUE LYRICA CAPSULE, 200 MG, 1 TAB, ORALLY, 3 TIMES A DAY CONTINUE HYDROCODONE-ACETAMINOPHEN TABLET, 10-325 MG, 1/2 -1 TAB, ORALLY, Q6H MDD4 NEEDED, NOTES: FOUR TIMES DAILY CONTINUE OXYCONTIN TABLET ER 12 HOUR ABUSE-DETERRENT, 15 MG, ORALLY, DAILY, NOTES: AT BED TIME CONTINUE OXYCONTIN TABLET ER 12 HOUR ABUSE-DETERRENT, 30 MG, 1 TABLET, ORALLY, DAILY AT BEDTIME MDD1, NOTES: ONCE A DAY NOTES: ISTOP REGISTRY REVIEWED AND DEMONSTRATES COMPLLIANCE. RECENT URINE TOXICOLOGY REVIEWED. NO UNAUTHORIZED MEDICATIONS. NO ILLICIT SUBSTANCES AND PRESCRIBED MEDICATIONS WERE PRESENT. RETURNED TO CLINIC FOR MEDS MANAGEMENT VISIT/TOXICOLOGY IN 2 MONTHS. TOTAL TIME SPENT DURING TELEMED VISIT WAS APPROXIMATELY 12 MINUTES. OTHERS CLINICAL NOTES: PRE SCREENING CALL DONE 09/17/19 EM. DISPOSITION & COMMUNICATION FOLLOW UP 2 MONTHS IN CLINIC MED MANAGEMENT/TOXICOLOGY (REASON: LOW BACK PAIN/BILATERAL HIP PAIN) ELECTRONICALLY SIGNED BY ALBERT BRITTON ON 09/18/2019 AT 02:57 PM EDT DISCLAIMER : THIS IS A VISIT SUMMARY EXTRACTED FROM THE E[employer]INICALWORKS CHART. IT IS NOT A COPY OF THE [employer] PROGRESS NOTE. ELIGIO
== END ==
LOC: M PAIN 08:45
PROVIDERS: ATTEND Nurse Practitioner Family
DX: M54.5 Low back pain (principal); M87.051 Idiopathic aseptic necrosis of right femur; Z79.899 Other long term (current) drug therapy

== ENCOUNTER → 2019-10-02 | Outpatient (CLI) | payer MEDICARE, OTHER ==
[2019-10-02 14:58] LABS: BASO % 0.3 % (0.0-1.0); EOS # 0.2 10^3/uL (0.0-0.5); EOS % 3.6 % (0.0-3.0); HEMOGLOBIN 14.4 g/dl (12.0-15.5); LYMPH # 1.3 10^3/uL (1.5-5.0); LYMPH % 19.1 % (24.0-44.0); MEAN CORPUSCULAR HEMOGLOBIN 30.5 pg (27.0-33.0); MEAN CORPUSCULAR HGB CONC 32.7 g/dl (32.0-36.5); MEAN CORPUSCULAR VOLUME 93.2 fl (80.0-96.0); MONO # 0.5 10^3/uL (0.0-0.8); MONO % 7.4 % (0.0-5.0); NEUTROPHILS # 4.6 10^3/uL (1.5-8.5); NEUTROPHILS % 69.4 % (36.0-66.0); PLATELET COUNT, AUTOMATED 236 10^3/uL (150-450); RED BLOOD COUNT 4.72 10^6/uL (4.00-5.40); WHITE BLOOD COUNT 6.6 10^3/uL (4.0-10.0)
[2019-10-02 15:27] LABS: ALBUMIN 3.7 GM/DL (3.2-5.2); ALT/SGPT 28 U/L (12-78); BILIRUBIN,TOTAL 0.3 MG/DL (0.2-1.0); BLOOD UREA NITROGEN 7 MG/DL (7-18); CALCIUM LEVEL 9.4 MG/DL (8.5-10.1); CARBON DIOXIDE LEVEL 28 MEQ/L (21-32); CHLORIDE LEVEL 107 MEQ/L (98-107); CREATININE FOR GFR 0.83 MG/DL (0.55-1.30); FERRITIN 288 NG/ML (8-252); GLOMERULAR FILTRATION RATE > 60.0 (>58); GLUCOSE, FASTING 79 MG/DL (70-100); IRON (FE) 74 UG/DL (50-170); PERCENT SATURATION 31.1 % (13.2-45.0); POTASSIUM SERUM 4.1 MEQ/L (3.5-5.1); SODIUM LEVEL 142 MEQ/L (136-145); TOTAL IRON BINDING CAPACITY 238 UG/DL (250-450)
== END ==
LOC: M PLALAB 13:38
PROVIDERS: ATTEND Internal Medicine Medical Oncology
DX: D50.9 Iron deficiency anemia, unspecified (principal)

== ENCOUNTER → 2019-12-07 | Outpatient (CLI) | payer MEDICARE, OTHER ==
[~2019-12-07] MED LIST changes: +MULTTAB61 PO
--- NOTE | 2019-12-07 18:30 | REPVR ---
PROCEDURE INFORMATION: Exam: MR Lumbar Spine Without Contrast. Exam date and time: 12/07/2019 2:21 PM Age: 44 years old Clinical indication: Condition or disease; Spondylosis, lumbosacral; Lumbar region; Without myelopathy or radiculopathy; Additional info: Lumbosacral spondylosis TECHNIQUE: Imaging protocol: Multiplanar magnetic resonance images of the lumbar spine without intravenous contrast. COMPARISON: No relevant prior studies available. FINDINGS: Vertebrae: Increased marrow signal demonstrated in the L5 and S1, findings which may indicate the presence of stress or insufficiency fractures. Clinical correlation to exclude trauma suggested. No evidence of marrow replacement on T1 weighted images suggested. Spinal cord: Normal signal. No cord compression. L1-L2: No significant disc disease. No significant spinal canal stenosis. No neural foraminal stenosis. L2-L3: No significant disc disease. No significant spinal canal stenosis. No neural foraminal stenosis. L3-L4: Mild bilateral facet joint arthropathy L3-L4. No spinal stenosis. No lateral recess stenosis. No foraminal stenosis. L4-L5: There is a moderate central spinal stenosis at L4-L5 secondary to diffuse annular bulging, thickened ligamentum flavum with facet joint arthropathy. No lateral recess stenosis. No foraminal stenosis. L5-S1: There is a mild central spinal stenosis at L5-S1 secondary to diffuse annular bulging, thickened ligamentum flavum with facet joint arthropathy. No lateral recess stenosis. No foraminal stenosis. Soft tissues: Unremarkable. IMPRESSION: 1. Increased signal in L5 and S1 consistent with edema possibly related to stress/insufficiency fracture. Correlation with plain films and possibly CT scanning suggested. 2. Mild degenerative changes in the mid and lower lumbar spine with bilateral facet joint arthropathy at L3-L4, moderate central spinal stenosis at L4-L5 and a mild central spinal stenosis at L5-S1. Electronically signed by: Horace Holt On 12/07/2019 18:29:55 PM
== END ==
LOC: M RAD 13:39
PROVIDERS: ATTEND Nurse Practitioner Family
DX: M47.816 Spondylosis without myelopathy or radiculopathy, lumbar region (principal); M48.061 Spinal stenosis, lumbar region without neurogenic claudication; M51.26 Other intervertebral disc displacement, lumbar region

== ENCOUNTER → 2020-01-27 | Outpatient (CLI) | payer MEDICARE, OTHER ==
--- NOTE | 2020-02-01 12:24 | ECWPNPC ---
PATIENT NAME: TORY TIRADO : 1975 GENDER: FEMALE VISIT DATE: 01/27/2020 DISCHARGE DATE: 01/27/20 1517 VISIT LOCKED DATE TIME: PHYSICIAN: PATRIZIA WILLAMS RESOURCE: PATRIZIA WILLAMS REASON FOR APPOINTMENT 1. REVIEW MRI HISTORY OF PRESENT ILLNESS DEPRESSION SCREENING: PHQ-2 (2015 EDITION) LITTLE INTEREST OR PLEASURE IN DOING THINGS?NEARLY EVERY DAY FEELING DOWN, DEPRESSED, OR HOPELESS?NOT AT ALL TOTAL SCORE3 GENERAL: HERE FOR FOLLOW-UP OF CHRONIC LOW BACK PAIN. MRI OF THE LS-SPINE DONE ON 12/07/2019 IS REVIEWED. HISTORY OF FALLING OFF A SKATE BOARD IN THE SPRING. SHE HAS HAD INCREASE IN LOW BACK PAIN SINCE. HAS NOT HAD ANY IMAGING STUDIES DONE. MRI OF LUMBOSACRAL SPINE IS SHOWING POSSIBLE STRESS/INSUFFICIENCY FRACTURE AT L5-S1. MODERATE CENTRAL SPINAL STENOSIS AT L4-5 DUE TO DEGENERATIVE CHANGES. HISTORY OF AVASCULAR NECROSIS. I WILL DISCUSS WITH DR. KEENAN IN REGARDS TO TREATMENT PLAN. PATIENT ALSO FOLLOWS WITH ONCOLOGY. -. FALL RISK SCREENING: SCREENING :NO FALLS REPORTED IN THE LAST YEAR NONE PAIN SCREENING: PATIENT HAS A COMPLAINT OF ACUTE OR CHRONIC PAIN :YES LOCATION OF PAIN:LOW BACK, LEFT HIP, RIGHT HIP INTENSITY OF PAIN (SCALE OF 1 TO 10):8 WHAT DOES YOUR PAIN FEEL LIKE:CONTINOUS, SHARP, STABBING IN BACK, HIPS AND KNEES DURATION:CONTINOUS, CONSTANT PAIN IS INCREASED BY:ACTIVITIES PAIN IS DECREASED BY:USE OF PAIN MEDICATIONS, OTHERS NURSING NOTE: -. PAIN CENTER INTAKE QUESTIONS: DO YOU HAVE A HISTORY OF MRSA? :NO DO YOU TAKE A BLOOD THINNERS? :NO DO YOU HAVE ANY BLEEDING DISORDERS? :NO ANY NEW NUMBNESS OR WEAKNESS IN YOUR LEGS OR ARMS? :NO ANY PACEMAKER,DEFIBRILLATOR, OR DORSAL COLUMN STIMULATOR? :NO DO YOU HAVE ANY RASHES OR OPEN SORES? :NO ARE YOU ALLERGIC TO IV DYE? :YES CT DYE ARE YOU DIABETIC? :NO ANY NEW PROBLEMS WITH YOUR MEDICATIONS? :NO HAVE YOU RECEIVED A VACCINE IN THE PAST 30 DAYS? :NO DO YOU PLAN TO RECEIVE A VACCINE IN THE NEXT 21 DAYS? :NO DO YOU NEED ANY PRESCRIPTION? :NO DO YOU TAKE ANY IMMUNOSUPPRESSIVE MEDICATIONS? :NO IS THERE A CHANCE YOU COULD BE ? :NO ARE YOU BREAST FEEDING? :NO CURRENT MEDICATIONS TAKING BOTOX 200 UNIT SOLUTION RECONSTITUTED INJECTION Q 3MOS TAKING FUSION 65-65-25-30 MG 4 ORALLY DAILY TAKING SPIRONOLACTONE 100 MG TABLET 1 TABLET ORALLY BID TAKING AZELEX 20 % CREAM 1 APPLICATION TO AFFECTED AREA EXTERNALLY TWICE A DAY TAKING TYLENOL ORAL PRN TAKING LIDODERM 5 % PATCH 1 PATCH TO INTACT SKIN REMOVE AFTER 12 HOURS EXTERNALLY ONCE A DAY NEEDED, NOTES: PRN NEED TAKING HYDROQUINONE 4 % CREAM DIRECTED EXTERNALLY TAKING MULTIVITAMIN ADULT - TABLET DIRECTED ORALLY TAKING LYRICA 200 MG CAPSULE 1 TAB ORALLY 3 TIMES A DAY TAKING HYDROCODONE-ACETAMINOPHEN 10-325 MG TABLET 1/2 -1 TAB ORALLY Q6H MDD4 NEEDED, NOTES: FOUR TIMES DAILY TAKING OXYCONTIN 15 MG TABLET ER 12 HOUR ABUSE-DETERRENT ORALLY DAILY, NOTES: AT BED TIME TAKING OXYCONTIN 30 MG TABLET ER 12 HOUR ABUSE-DETERRENT 1 TABLET ORALLY DAILY AT BEDTIME MDD1, NOTES: ONCE A DAY MEDICATION LIST REVIEWED AND RECONCILED WITH THE PATIENT PAST MEDICAL HISTORY MIGRIANES VOCAL CORD POLYPS PTSD ANXIETY/DEPRESSION HODGKINS LYMPHOMA CHRONIC PAIN BILATERAL AVASCULA NECROSIS FEMORAL HEADS AND LEFT KNEE OSTEOARTHRITIS CUNCUSION AND RIB FX S/P FALL ALLERGIES IODINE: ANAPHYLAXIS LATEX: ANAPHYLAXIS CT DYE: ANAPHYLAXIS SEA FOOD: ANAPHYLAXIS SURGICAL HISTORY C/S TUBAL LIGATION BILATERAL HIP CORE DECOMPRESSION BILATERAL CARPAL TUNNEL TONSILECTOMY SINUS SURGERY GASTRIC BYPOASS 2016 FAMILY HISTORY FATHER: ALIVE, DIAGNOSED WITH UNSPECIFIED HEART DISEASE, DIABETES MOTHER: ALIVE, UNSPECIFIED HEART DISEASE, OTHER MALIGNANT NEOPLASM OF UNSPECIFIED SITE 1 SON(S) , 1 DAUGHTER(S) - HEALTHY. MOM-THYROID CADAD-EMPHYSEMA. SOCIAL HISTORY GENERAL: TOBACCO USE ARE YOU A:CURRENT SMOKER HOW OFTEN DO YOU SMOKE CIGARETTES?SOME DAYS, BUT NOT EVERY DAY HOW SOON AFTER YOU WAKE UP DO YOU SMOKE YOUR FIRST CIGARETTE?AFTER 60 MIN HOW MANY CIGARETTES A DAY DO YOU SMOKE?5 OR LESS ARE YOU INTERESTED IN QUITTING?NOT READY TO QUIT PATIENT COUNSELED ON THE DANGERS OF TOBACCO USE AND URGED TO QUIT:06/16/2019 COUNSELED THE PATIENT ON SMOKING EFFECTS, EDUCATION [id number]/11/2020 SMOKING CESSATION INFORMATION GIVEN11/13/2017 LATEX QUESTIONNAIRE LATEX ALLERGY : HAVE YOU EVER DEVELOPED ANY TYPE OF REACTION AFTER HANDLING LATEX PRODUCTS SUCH RUBBER GLOVES, CONDOMS, DIAPHRAGMS, BALLOONS, SOCKS, OR UNDERWEAR?YES PT ALLERGIC TO LATEX DATE ASKED : 01/27/2020 RECREATIONAL DRUG USE DRUG USE?NO CHEONDOISM [id number] RELIGION LANGUAGE LANGUAGES SPOKEN:GEORGIAN LEARNING BARRIERS / SPECIAL NEEDS BARRIERS TO LEARNING?NO HEARING IMPAIRED?NO VISION IMPAIRED?YES COGNITIVELY IMPAIRED?NO :CORRECTIVE LENSES READINESS TO LEARN?YES LEARNING PREFERENCES?NO LEARNING CAPABILITIES PRESENT?YES EMOTIONAL BARRIERS?NO SPECIAL DEVICES?NO RESIDENT ASSISTANT CNA NEEDED?NO PAIN CLINIC PFS, CLERGY, PUBLIC HEALTH REFERRALS PFS REFERRAL NEEDED?NO CLERGY REFERRAL NEEDED?NO PUBLIC HEALTH REFERRAL NEEDED?NO WAS THE PROVIDER NOTIFIED OF ANY PERTINENT INFO?NO HAS THE PATIENT BEEN EDUCATED REGARDING HIS/HER PLAN OF CARE?YES HAS THE PATIENT BEEN EDUCATED REGARDING PAIN, THE RISK FOR PAIN, THE IMPORTANCE OF EFFECTIVE PAIN MANAGEMENT, AND THE PAIN ASSESSMENT PROCESS?YES ADVANCE DIRECTIVE ADVANCE DIRECTIVE DISCUSSED WITH PATIENT:YES DECLINED INFORMATION AND ASSISTANCE WTIH FORM AT THIS TIME. REVIEWED WITH PATIENT 01/13/18 0951 JSREVIEWED WITH PT 09/15/18 1023 BVREVIEWED WITH PATIENT 12/12/18 1107 NLJ. HOSPITALIZATION/MAJOR DIAGNOSTIC PROCEDURE BULIMIA REVIEW OF SYSTEMS CONSTITUTIONAL: ANY RECENT FEVER NO . CHILLS NO . GASTROENTEROLOGY: BOWEL INCONTINENCE NO . ANY NEW CHANGE IN BOWEL CONTROL? NO . HISTORY OF UNUSUAL ABDOMINAL PAIN OR CRAMPING NOT MENTIONED NO . CONSTIPATION NO . GENITOURINARY: ANY NEW CHANGE IN BLADDER CONTROL? NO . IS THERE A CHANCE YOU COULD BE ? NO . URINARY INCONTINENCE NO . CARDIOLOGY: NEW CHEST PRESSURE NO . HISTORY OF CHEST PAIN,IRREGULAR HEART BEAT NOT MENTIONED NO . RESPIRATORY: COUGH NO . SHORTNESS OF BREATH NO . VITAL SIGNS WT 159.8 LBS, HT 63 IN, BMI 28.30 INDEX, BP 125/75 MM HG, HR 74 /MIN, RR 18 /MIN, TEMP 96.3 F, OXYGEN SAT % 99%, SAFE IN ENV? (Y/N) YES, NA INITIALS AW 1357, REVIEWED BY: MICHOACANO. EXAMINATION GENERAL EXAMINATION: GENERALAWAKE,ALERT ,PLEAASANT . PSYCHAFFECT NORMAL . LUNGS:LUNG BENNETT ARE CLEAR TO AUSCULTATION BILATERALLY. GOOD MOVEMENT OF AIR . HEART:S1, S2 IN A REGULAR RATE AND RHYTHM. NO SIGNIFICANT MURMURS, RUBS OR GALLOPS NOTED . 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 PATIENT WOULD CONSIDER INTERVENTIONAL/INJECTION THERAPY IF DR. KEENAN WOULD SUGGEST THIS AFTER REVIEWING HER PAST MEDICAL HISTORY. DISPOSITION & COMMUNICATION FOLLOW UP 3 MONTHS (REASON: RECOMMENDATIONS FOR COMPRESSION FX PER DR Martinez/FOLLOWS W ONCOLOGY/HX AVASCULAR NECROSIS BILAT. HIPS) ELECTRONICALLY SIGNED BY ALBERT BRITTON ON 02/01/2020 AT 09:10 AM EDT DISCLAIMER : THIS IS A VISIT SUMMARY EXTRACTED FROM THE [employer] [facility] [employer]([facility] CHART. IT IS NOT A COPY OF THE [employer] [facility] [employer] PROGRESS NOTE. MTDD
== END ==
LOC: M PAIN 13:45
PROVIDERS: ATTEND Nurse Practitioner Family
DX: M54.5 Low back pain (principal); M87.051 Idiopathic aseptic necrosis of right femur; G43.909 Migraine, unspecified, not intractable, without status migrainosus; F43.10 Post-traumatic stress disorder, unspecified; F41.9 Anxiety disorder, unspecified; F32.9 Major depressive disorder, single episode, unspecified; G89.29 Other chronic pain; F17.210 Nicotine dependence, cigarettes, uncomplicated; Z79.891 Long term (current) use of opiate analgesic; Z79.899 Other long term (current) drug therapy; Z91.040 Latex allergy status; Z91.013 Allergy to seafood; Z91.041 Radiographic dye allergy status; Z88.8 Allergy status to other drugs, medicaments and biological substances

== ENCOUNTER → 2020-04-28 | Outpatient (CLI) | payer MEDICARE, OTHER ==
--- NOTE | 2020-05-03 04:08 | ECWPNPC ---
PATIENT NAME: TORY TIRADO : 1975 GENDER: FEMALE VISIT DATE: 04/28/2020 DISCHARGE DATE: 04/28/20 1456 VISIT LOCKED DATE TIME: PHYSICIAN: PATRIZIA WILLAMS RESOURCE: PATRIZIA WILLAMS REASON FOR APPOINTMENT 1. RECOMMENDATIONS FOR COMPRESSION FX PER DR Martinez/FOLLOWS W ONCOLOGY/HX AVASCULAR NECROSIS BILAT. HIPS HISTORY OF PRESENT ILLNESS GENERAL: HERE FOR FOLLOW-UP OF CHRONIC LOW BACK PAIN AND BILATERAL HIP PAIN. HISTORY OF AVASCULAR NECROSIS OF HIPS. REVIEWED CASE WITH DR. KEENAN. REVIEWED MRI OF LS SPINE DONE ON 12/07/2019. HISTORY OF A FALL INJURY SEVERAL MONTHS AGO. MRI SHOWING POSSIBLE STRESS FRACTURE AT L5-S1. PER DR. KEENAN'S RECOMMENDATION I OFFERED PATIENT A REFERRAL TO ORTHOPEDIC SURGEON TO EVALUATE FRACTURE FOR POSSIBLE TREATMENT WITH KYPHOPLASTY. ALSO OFFERED LUMBAR FACET BLOCK. PATIENT DECLINED BOTH. STATES SHE ACTUALLY FEELING BETTER IN HER LOW BACK REGION. SHE WANTS TO AVOID ANY SURGERIES AND OR INJECTIONS IF POSSIBLE. LITES HER CURRENT CHRONIC PAIN MEDICATION HELPFUL AT REDUCING PAIN AND KEEPING HER FUNCTIONAL. DENIES ADVERSE SIDE EFFECTS WITH MEDICATION. -. FALL RISK SCREENING: SCREENING :NO FALLS REPORTED IN THE LAST YEAR PAIN SCREENING: PATIENT HAS A COMPLAINT OF ACUTE OR CHRONIC PAIN :YES LOCATION OF PAIN:MID BACK, LOW BACK INTENSITY OF PAIN (SCALE OF 1 TO 10):5 WHAT DOES YOUR PAIN FEEL LIKE:SHARP, STABBING WITH BENDING; SPASMS DURATION:CONSTANT PAIN IS INCREASED BY:ACTIVITIES BENDING, PROLONGED WALKING PAIN IS DECREASED BY:OTHERS REST NURSING NOTE: -. PAIN CENTER INTAKE QUESTIONS: DO YOU HAVE A HISTORY OF MRSA? :NO DO YOU TAKE A BLOOD THINNERS? :NO DO YOU HAVE ANY BLEEDING DISORDERS? :NO ANY NEW NUMBNESS OR WEAKNESS IN YOUR LEGS OR ARMS? :NO ANY PACEMAKER,DEFIBRILLATOR, OR DORSAL COLUMN STIMULATOR? :NO DO YOU HAVE ANY RASHES OR OPEN SORES? :NO ARE YOU ALLERGIC TO IV DYE? :YES CT DYE ARE YOU DIABETIC? :NO ANY NEW PROBLEMS WITH YOUR MEDICATIONS? :NO HAVE YOU RECEIVED A VACCINE IN THE PAST 30 DAYS? :NO DO YOU PLAN TO RECEIVE A VACCINE IN THE NEXT 21 DAYS? :NO DO YOU NEED ANY PRESCRIPTION? :YES OXYCONTIN 30 & 15, LYRICA & HYDROCODONE PAPER PRESCRIPTIONS DO YOU TAKE ANY IMMUNOSUPPRESSIVE MEDICATIONS? :NO IS THERE A CHANCE YOU COULD BE ? :NO ARE YOU BREAST FEEDING? :NO CURRENT MEDICATIONS TAKING BOTOX 200 UNIT SOLUTION RECONSTITUTED INJECTION Q 3MOS TAKING FUSION 65-65-25-30 MG 4 ORALLY DAILY TAKING AZELEX 20 % CREAM 1 APPLICATION TO AFFECTED AREA EXTERNALLY TWICE A DAY TAKING LIDODERM 5 % PATCH 1 PATCH TO INTACT SKIN REMOVE AFTER 12 HOURS EXTERNALLY ONCE A DAY NEEDED, NOTES: PRN NEED TAKING HYDROQUINONE 4 % CREAM DIRECTED EXTERNALLY TAKING MULTIVITAMIN ADULT - TABLET DIRECTED ORALLY TAKING LYRICA 200 MG CAPSULE 1 TAB ORALLY 3 TIMES A DAY TAKING HYDROCODONE-ACETAMINOPHEN 10-325 MG TABLET 1/2 -1 TAB ORALLY Q6H MDD4 NEEDED, NOTES: FOUR TIMES DAILY TAKING OXYCONTIN 15 MG TABLET ER 12 HOUR ABUSE-DETERRENT ORALLY DAILY, NOTES: AT BED TIME TAKING OXYCONTIN 30 MG TABLET ER 12 HOUR ABUSE-DETERRENT 1 TABLET ORALLY DAILY MDD1, NOTES: ONCE A DAY NOT-TAKING SPIRONOLACTONE 100 MG TABLET 1 TABLET ORALLY BID NOT-TAKING TYLENOL ORAL PRN MEDICATION LIST REVIEWED AND RECONCILED WITH THE PATIENT PAST MEDICAL HISTORY MIGRIANES VOCAL CORD POLYPS PTSD ANXIETY/DEPRESSION HODGKINS LYMPHOMA CHRONIC PAIN BILATERAL AVASCULA NECROSIS FEMORAL HEADS AND LEFT KNEE OSTEOARTHRITIS CUNCUSION AND RIB FX S/P FALL ALLERGIES IODINE: ANAPHYLAXIS LATEX: ANAPHYLAXIS CT DYE: ANAPHYLAXIS SEA FOOD: ANAPHYLAXIS SURGICAL HISTORY C/S TUBAL LIGATION BILATERAL HIP CORE DECOMPRESSION BILATERAL CARPAL TUNNEL TONSILECTOMY SINUS SURGERY GASTRIC BYPOASS 2016 TEETH EXTRACTION MAR 2020 SOCIAL HISTORY GENERAL: TOBACCO USE ARE YOU A:FORMER SMOKER HOW LONG HAS IT BEEN SINCE YOU LAST SMOKED?< 1 MONTH 3 DAYS AGO MALES, AGE 65-75 WITH 5 PACK SMOKING HISTORY (100 CIGARETTES LIFETIME)NO SMOKING CESSATION INFORMATION GIVEN11/13/2017 LATEX QUESTIONNAIRE LATEX ALLERGY : HAVE YOU EVER DEVELOPED ANY TYPE OF REACTION AFTER HANDLING LATEX PRODUCTS SUCH RUBBER GLOVES, CONDOMS, DIAPHRAGMS, BALLOONS, SOCKS, OR UNDERWEAR?YES PT ALLERGIC TO LATEX DATE ASKED : 04/28/2020 ALCOHOL USE: NO. RECREATIONAL DRUG USE DRUG USE?NO HOAHAOISM [id number] YAZIDI LANGUAGE LANGUAGES SPOKEN:TURKMEN LEARNING BARRIERS / SPECIAL NEEDS CHANGE FROM LAST VISIT?NO BARRIERS TO LEARNING?NO HEARING IMPAIRED?NO VISION IMPAIRED?YES :CORRECTIVE LENSES COGNITIVELY IMPAIRED?NO READINESS TO LEARN?YES LEARNING PREFERENCES?NO LEARNING CAPABILITIES PRESENT?YES EMOTIONAL BARRIERS?NO SPECIAL DEVICES?NO REINSPECTOR NEEDED?NO HOSPITALIZATION/MAJOR DIAGNOSTIC PROCEDURE BULIMIA REVIEW OF SYSTEMS CONSTITUTIONAL: ANY RECENT FEVER NO . CHILLS NO . WEIGHT CHANGE OF UNKNOWN REASONS NO . GASTROENTEROLOGY: NEW UNEXPLAINABLE CHANGES IN BOWEL CONTROL NO . CONSTIPATION NO . GENITOURINARY: ANY NEW CHANGE IN BLADDER CONTROL? NO . NEUROLOGY: NEW ONSET DIZZINESS OR NEUROLOGICAL CHANGES NOT MENTIONED NO . NEW NUMBNESS OR PAIN PATTERNS NOT MENTIONED AND PERTINENT TO TODAY'S VISIT NO . CARDIOLOGY: NEW CHEST PRESSURE NO . NEW CHEST PAIN NO . RESPIRATORY: UNEXPLAINABLE COUGH NO . NEW SHORTNESS OF BREATH NO . VITAL SIGNS WT 162.6 LBS, HT 63 IN, BMI 28.80 INDEX, BP 122/58 MM HG, HR 65 /MIN, RR 18 /MIN, TEMP 98.1 F, OXYGEN SAT % 99, SAFE IN ENV? (Y/N) YES, REVIEWED BY: [employer]. JUNE MCCRAY. EXAMINATION GENERAL EXAMINATION: GENERALAWAKE,ALERT ,PLEAASANT . PSYCHAFFECT NORMAL . LUNGS:LUNG BENNETT ARE CLEAR TO AUSCULTATION BILATERALLY. GOOD MOVEMENT OF AIR . HEART:S1, S2 IN A REGULAR RATE AND RHYTHM. NO SIGNIFICANT MURMURS, RUBS OR GALLOPS NOTED . ASSESSMENTS BILATERAL LOW BACK PAIN, WITH SCIATICA PRESENCE UNSPECIFIED - M54.5 (PRIMARY) TREATMENT BILATERAL LOW BACK PAIN, WITH SCIATICA PRESENCE UNSPECIFIED CONTINUE LYRICA CAPSULE, 200 MG, 1 TAB, ORALLY, 3 TIMES A DAY CONTINUE HYDROCODONE-ACETAMINOPHEN TABLET, 10-325 MG, 1/2 -1 TAB, ORALLY, Q6H MDD4 NEEDED, NOTES: FOUR TIMES DAILY CONTINUE OXYCONTIN TABLET ER 12 HOUR ABUSE-DETERRENT, 15 MG, ORALLY, DAILY, NOTES: AT BED TIME CONTINUE OXYCONTIN TABLET ER 12 HOUR ABUSE-DETERRENT, 30 MG, 1 TABLET, ORALLY, DAILY MDD1, NOTES: ONCE A DAY NOTES: ISTOP REGISTRY REVIEWED AND DEMONSTRATES COMPLLIANCE. BRINGS IN MEDICATIONS WHICH IS APPROPRIATE FOR WHAT WAS DISPENSED. RECENT URINE TOXICOLOGY REVIEWED. NO UNAUTHORIZED MEDICATIONS. NO ILLICIT SUBSTANCES AND PRESCRIBED MEDICATIONS WERE PRESENT. PROCEDURE CODES FA211 ESTABILISHED PATIENT [facility] CHARGE DISPOSITION & COMMUNICATION FOLLOW UP 3 MONTHS (REASON: MEDICATION MANAGEMENT/URINE TOXICOLOGY) ELECTRONICALLY SIGNED BY ALBERT BRITTON ON 05/02/2020 AT 08:46 AM EST DISCLAIMER : THIS IS A VISIT SUMMARY EXTRACTED FROM THE [employer] CHART. IT IS NOT A COPY OF THE [employer] PROGRESS NOTE. ELIGIO
== END ==
LOC: M PAIN 13:45
PROVIDERS: ATTEND Nurse Practitioner Family
DX: M54.5 Low back pain (principal); G43.909 Migraine, unspecified, not intractable, without status migrainosus; F43.10 Post-traumatic stress disorder, unspecified; F41.9 Anxiety disorder, unspecified; F32.9 Major depressive disorder, single episode, unspecified; G89.29 Other chronic pain; M87.051 Idiopathic aseptic necrosis of right femur; M87.052 Idiopathic aseptic necrosis of left femur; M87.062 Idiopathic aseptic necrosis of left tibia; Z87.891 Personal history of nicotine dependence; Z79.891 Long term (current) use of opiate analgesic; Z79.899 Other long term (current) drug therapy; Z88.8 Allergy status to other drugs, medicaments and biological substances; Z91.040 Latex allergy status; Z91.041 Radiographic dye allergy status; Z91.013 Allergy to seafood

== ENCOUNTER → 2020-05-03 | Outpatient (CLI) | payer MEDICARE, OTHER, MEDICAID ==
--- NOTE | 2020-05-04 09:20 | ECHO ---
DATE OF PROCEDURE: 05/03/2020 Age: 44 Gender: Female Height: 165 cm Weight: 75 kg REFERRING PHYSICIAN: Alex Martinez MD INDICATION: Hodgkin's lymphoma. MEASUREMENTS: IVS 1.1 cm LV 4.6 cm LVPW 0.9 cm LA 3.7 cm Aorta 2.7 cm IVC 1.4 cm Mitral E wave velocity 119 Mitral A wave 38 E prime septal 7.9 E prime lateral 9.5 FINDINGS: This study is of good technical quality. Underlying sinus rhythm. Normal LV size with preserved LV systolic function, estimated LVEF 60% to 65%. Normal RV size and systolic function. Both atria appear normal. All four cardiac valves were well seen and appear normal. Trivial pericardial effusion is noted. Inferior vena cava has normal size and appropriately collapses with inspiration, indicative of normal central venous pressure. Aortic root and aortic arch appear normal. Doppler interrogation reveals competent aortic valve. There is trace mitral and tricuspid insufficiency. Pulmonic valve is functionally competent. Estimated pulmonary artery pressure is in the mid 20s corresponding to normal values. Mitral inflow pattern and tissue Doppler imaging of the mitral annulus revealed normal diastolic function. CONCLUSIONS: 1. Study is of good technical quality, baseline sinus rhythm. 2. Normal LV size with preserved LV systolic function and normal diastolic function. 3. No significant valvular disease. 4. Normal central venous pressure and normal pulmonary artery pressure. 5. Trivial pericardial effusion. COMMENT: Essentially normal echocardiogram. [facility] [place]
== END ==
LOC: M CARPUL 08:46
PROVIDERS: ATTEND Internal Medicine Hematology & Oncology
DX: C81.90 Hodgkin lymphoma, unspecified, unspecified site (principal); J90 Pleural effusion, not elsewhere classified; I08.1 Rheumatic disorders of both mitral and tricuspid valves

== ENCOUNTER → 2020-05-11 | Outpatient (CLI) | payer MEDICARE, OTHER, MEDICAID ==
--- NOTE | 2020-05-11 15:20 | REPMRS ---
Patient History The patient states she has not had a clinical breast exam in over a year. Patient had previous chest radiation therapy at age 16 and has history of other cancer at age 16. Family history of breast cancer in maternal grandmother. Took hormonal contraceptives for 14 years beginning at age 11. Digital Woman Screen Mammo: May 11, 2020 - Exam #: [id number] Bilateral CC and MLO view(s) were taken. Technologist: Rama Lamar, RT Prior study comparison: July 12, 2017, bilateral digital mammo screening bilat, performed at [facility]. September 15, 2015, bilateral digital mammo screening bilat, performed at [facility]. FINDINGS: There are scattered fibroglandular densities. The Volpara volumetric breast density category is:B. There has been no change in the appearance of the mammogram from the prior studies. There is a mild amount of scattered fibroglandular density which is fairly symmetric. There is no interval development of dominant mass, architectural distortion, or grouped microcalcification suggestive of malignancy. 3-D tomosynthesis shows no additional findings. Assessment: BI-RADS/ACR category 1 mammogram. Negative Mammogram. Recommendation Routine screening mammogram of both breasts in 1 year (for women over age 40). This patient's [facility] Lifetime Breast Cancer Risk is estimated at 15.4 %. This mammogram was interpreted with the aid of an FDA-approved computer-aided dectection system. Electronically Signed By: Anshu Veras MD 05/11/20 [id number]
== END ==
LOC: M WHC 14:07
PROVIDERS: ATTEND Internal Medicine Hematology & Oncology
DX: Z12.31 Encounter for screening mammogram for malignant neoplasm of breast (principal); Z85.89 Personal history of malignant neoplasm of other organs and systems; Z92.3 Personal history of irradiation; Z92.0 Personal history of contraception

== ENCOUNTER → 2020-08-16 | Outpatient (CLI) | payer MEDICARE, OTHER ==
[~2020-08-16] MED LIST changes: +NAPR-849 PO; -NAPR250T4 PO
--- NOTE | 2020-08-18 02:05 | ECWPNPC ---
PATIENT NAME: TORY TIRADO : 1975 GENDER: FEMALE VISIT DATE: 08/16/2020 DISCHARGE DATE: 08/16/20 1141 VISIT LOCKED DATE TIME: PHYSICIAN: PATRIZIA WILLAMS RESOURCE: PATRIZIA WILLAMS REASON FOR APPOINTMENT 1. MEDICATION MANAGEMENT/URINE TOXICOLOGY HISTORY OF PRESENT ILLNESS DEPRESSION SCREENING: PHQ-2 (2015 EDITION) LITTLE INTEREST OR PLEASURE IN DOING THINGS?DECLINED TO SPECIFY FEELING DOWN, DEPRESSED, OR HOPELESS?DECLINED TO SPECIFY TOTAL SCORE0 GENERAL: HERE FOR FOLLOW-UP OF CHRONIC LOW BACK PAIN. THIS IS A MEDICATION MANAGEMENT VISIT. PATIENT BRINGS IN HER MEDICATION WHICH IS APPROPRIATE FOR WHAT WAS DISPENSED. PATIENT IS DOING VERY WELL TODAY. STATES THAT SHE STARTED HEMP OIL AND CBD OIL THAT IS IN VAPE AND THIS HAS BEEN HELPING HER TREMENDOUSLY. SHE DOES NOT FEEL THOUGH IT CONTAINS THC SO HOPEFULLY URINE TOXICOLOGY WILL BE NEGATIVE FOR THC. OVERALL DOING VERY WELL. DENIES SIDE EFFECTS WITH HER CHRONIC PAIN MEDICATIONS. -. FALL RISK SCREENING: SCREENING COUPLE FALLS REPORTED IN THE LAST YEAR, ONE FALL THIS YEAR NO INJURIES DID NOT GO THE ER. PAIN SCREENING: PATIENT HAS A COMPLAINT OF ACUTE OR CHRONIC PAIN :YES LOCATION OF PAIN:LOW BACK INTENSITY OF PAIN (SCALE OF 1 TO 10):3 WHAT DOES YOUR PAIN FEEL LIKE:ACHING DURATION:CONTINOUS, CONSTANT, ALL DAY PAIN IS INCREASED BY:ACTIVITIES, PROLONGED STANDING PAIN IS DECREASED BY:USE OF PAIN MEDICATIONS NURSING NOTE: -. PAIN CENTER INTAKE QUESTIONS: DO YOU HAVE A HISTORY OF MRSA? :NO DO YOU TAKE A BLOOD THINNERS? :NO DO YOU HAVE ANY BLEEDING DISORDERS? :NO ANY NEW NUMBNESS OR WEAKNESS IN YOUR LEGS OR ARMS? :NO ANY PACEMAKER,DEFIBRILLATOR, OR DORSAL COLUMN STIMULATOR? :NO DO YOU HAVE ANY RASHES OR OPEN SORES? :NO ARE YOU ALLERGIC TO IV DYE? :YES CT DYE ARE YOU DIABETIC? :NO ANY NEW PROBLEMS WITH YOUR MEDICATIONS? :NO HAVE YOU RECEIVED A VACCINE IN THE PAST 30 DAYS? :NO DO YOU PLAN TO RECEIVE A VACCINE IN THE NEXT 21 DAYS? :NO DO YOU NEED ANY PRESCRIPTION? :YES OXYCONTIN 30 & 15, LYRICA & HYDROCODONE PAPER PRESCRIPTIONS DO YOU TAKE ANY IMMUNOSUPPRESSIVE MEDICATIONS? :NO IS THERE A CHANCE YOU COULD BE ? :NO ARE YOU BREAST FEEDING? :NO CURRENT MEDICATIONS TAKING BOTOX 200 UNIT SOLUTION RECONSTITUTED INJECTION Q 3MOS TAKING FUSION 65-65-25-30 MG 4 ORALLY DAILY TAKING AZELEX 20 % CREAM 1 APPLICATION TO AFFECTED AREA EXTERNALLY TWICE A DAY TAKING LIDODERM 5 % PATCH 1 PATCH TO INTACT SKIN REMOVE AFTER 12 HOURS EXTERNALLY ONCE A DAY NEEDED, NOTES: PRN NEED TAKING HYDROQUINONE 4 % CREAM DIRECTED EXTERNALLY TAKING MULTIVITAMIN ADULT - TABLET DIRECTED ORALLY TAKING LYRICA 200 MG CAPSULE 1 TAB ORALLY 3 TIMES A DAY TAKING HYDROCODONE-ACETAMINOPHEN 10-325 MG TABLET 1/2 -1 TAB ORALLY Q6H MDD4 NEEDED, NOTES: FOUR TIMES DAILY TAKING OXYCONTIN 15 MG TABLET ER 12 HOUR ABUSE-DETERRENT ORALLY DAILY, NOTES: AT BED TIME TAKING OXYCONTIN 30 MG TABLET ER 12 HOUR ABUSE-DETERRENT 1 TABLET ORALLY DAILY MDD1, NOTES: ONCE A DAY TAKING MAY HAVE - - CBD GUMMIES NOT-TAKING SPIRONOLACTONE 100 MG TABLET 1 TABLET ORALLY BID NOT-TAKING TYLENOL ORAL PRN MEDICATION LIST REVIEWED AND RECONCILED WITH THE PATIENT PAST MEDICAL HISTORY MIGRIANES VOCAL CORD POLYPS PTSD ANXIETY/DEPRESSION HODGKINS LYMPHOMA CHRONIC PAIN BILATERAL AVASCULA NECROSIS FEMORAL HEADS AND LEFT KNEE OSTEOARTHRITIS CUNCUSION AND RIB FX S/P FALL ALLERGIES IODINE: ANAPHYLAXIS LATEX: ANAPHYLAXIS CT DYE: ANAPHYLAXIS SEA FOOD: ANAPHYLAXIS SOCIAL HISTORY GENERAL: TOBACCO USE ARE YOU A:FORMER SMOKER HOW LONG HAS IT BEEN SINCE YOU LAST SMOKED?< 1 MONTH 3 DAYS AGO MALES, AGE 65-75 WITH 5 PACK SMOKING HISTORY (100 CIGARETTES LIFETIME)NO SMOKING CESSATION INFORMATION GIVEN11/13/2017 [facility] LATEX QUESTIONNAIRE LATEX ALLERGY : HAVE YOU EVER DEVELOPED ANY TYPE OF REACTION AFTER HANDLING LATEX PRODUCTS SUCH RUBBER GLOVES, CONDOMS, DIAPHRAGMS, BALLOONS, SOCKS, OR UNDERWEAR?YES PT ALLERGIC TO LATEX LATEX ALLERGY : HAVE YOU EVER DEVELOPED ANY TYPE OF REACTION DURING OR AFTER DENTAL APPOINTMENT, VAGINAL/RECTAL EXAMINATION, SURGICAL PROCEDURE, OR ANY OTHER EXPOSURE?NO LATEX RISK : HAVE YOU EVER HAD ANY DIFFICULTY BREATHING OR HIVES AFTER EATING OR HANDLING ANY FRUITS, OR VEGETABLES; SUCH KIWI, BANANAS, STONE FRUITS, OR CHESTNUTSNO LATEX RISK : DO YOU HAVE A PREVIOUS PERSONAL HISTORY OF MORE THAN NINE SURGERIES, SPINA BIFIDA, OR REPEATED CATHERIZATIONS? NO LATEX RISK : ARE YOU FREQUENTLY EXPOSED TO LATEX PRODUCTS IN YOUR OCCUPATION?NO DATE ASKED : 04/28/2020 ALCOHOL USE: NO. RECREATIONAL DRUG USE DRUG USE?YES HOW OFTEN AND HOW MUCH? [id number] LANGUAGE LANGUAGES SPOKEN:GRENADIAN LEARNING BARRIERS / SPECIAL NEEDS CHANGE FROM LAST VISIT?NO BARRIERS TO LEARNING?NO HEARING IMPAIRED?NO VISION IMPAIRED?YES :CORRECTIVE LENSES COGNITIVELY IMPAIRED?NO READINESS TO LEARN?YES LEARNING PREFERENCES?NO LEARNING CAPABILITIES PRESENT?YES EMOTIONAL BARRIERS?NO SPECIAL DEVICES?YES NEEDED GLASS CUTTER HAND NEEDED?NO REVIEW OF SYSTEMS CONSTITUTIONAL: ANY RECENT FEVER NO . CHILLS NO . WEIGHT CHANGE OF UNKNOWN REASONS NO . GASTROENTEROLOGY: NEW UNEXPLAINABLE CHANGES IN BOWEL CONTROL NO . CONSTIPATION NO . GENITOURINARY: ANY NEW CHANGE IN BLADDER CONTROL? NO . NEUROLOGY: NEW ONSET DIZZINESS OR NEUROLOGICAL CHANGES NOT MENTIONED NO . NEW NUMBNESS OR PAIN PATTERNS NOT MENTIONED AND PERTINENT TO TODAY'S VISIT NO . CARDIOLOGY: NEW CHEST PRESSURE NO . PATIENT DENIES NO . RESPIRATORY: UNEXPLAINABLE COUGH NO . NEW SHORTNESS OF BREATH NO . VITAL SIGNS WT 157.0 LBS, HT 63 IN, BMI 27.81 INDEX, BP 123/59 MM HG, HR 66 /MIN, RR 18 /MIN, TEMP 97.9 F, OXYGEN SAT % 100%, SAFE IN ENV? (Y/N) YES, NA INITIALS AW [id number].NEREYDA ALONZO. EXAMINATION GENERAL EXAMINATION: GENERALAWAKE,ALERT ,PLEAASANT . PSYCHAFFECT NORMAL . LUNGS:LUNG BENNETT ARE CLEAR TO AUSCULTATION BILATERALLY. GOOD MOVEMENT OF AIR . HEART:S1, S2 IN A REGULAR RATE AND RHYTHM. NO SIGNIFICANT MURMURS, RUBS OR GALLOPS NOTED . ASSESSMENTS CHRONIC PRESCRIPTION OPIATE USE - Z79.899 (PRIMARY) BILATERAL LOW BACK PAIN, WITH SCIATICA PRESENCE UNSPECIFIED - M54.5 TREATMENT CHRONIC PRESCRIPTION OPIATE USE CONTINUE LYRICA CAPSULE, 200 MG, 1 TAB, ORALLY, 3 TIMES A DAY REFILL HYDROCODONE-ACETAMINOPHEN TABLET, 10-325 MG, 1/2 -1 TAB, ORALLY, Q6H MDD4 NEEDED, NOTES: FOUR TIMES DAILY REFILL OXYCONTIN TABLET ER 12 HOUR ABUSE-DETERRENT, 15 MG, ORALLY, DAILY, NOTES: AT BED TIME REFILL OXYCONTIN TABLET ER 12 HOUR ABUSE-DETERRENT, 30 MG, 1 TABLET, ORALLY, DAILY MDD1, NOTES: ONCE A DAY LAB: ORAL FLUID TEST GROUP ROCIO DAWN 08/16/2020 11:32:33 AM > LAST DOSE: HYDROCODONE 08/16/2020 @5AM, OXYCONTIN 08/16/2020 @ 5AM, LYRICA 08/16/2020 @ 5AM NOTES: ISTOP REGISTRY REVIEWED AND DEMONSTRATES COMPLLIANCE. BRINGS IN MEDICATIONS WHICH IS APPROPRIATE FOR WHAT WAS DISPENSED. RECENT URINE TOXICOLOGY REVIEWED. NO UNAUTHORIZED MEDICATIONS. NO ILLICIT SUBSTANCES AND PRESCRIBED MEDICATIONS WERE PRESENT. , RISKS OF NARCOTIC/OPIOD MEDICATIONS INCLUDES BUT IS NOT LIMITED TO RISK OF DEPENDANCE/DEVELOPMENT OF ADDICTION, MOOD DISTURBANCE AND DEPRESSION, OSTEOPOROSIS, HORMONAL AND LABIDAL CHANGES, RESPIRATORY DEPRESSION AND . PATIENT IS ADVISED NOT TO DRIVE OR DRINK ALCOHOL WHILE ON THESE MEDICATIONS. PROCEDURE CODES FA211 ESTABILISHED PATIENT [facility] CHARGE DISPOSITION & COMMUNICATION FOLLOW UP 3 MONTHS (REASON: MED MGMNT/UTOX REVIEW/ORAL SWAB) ELECTRONICALLY SIGNED BY ALBERT BRITTON ON 08/17/2020 AT 02:04 PM EDT DISCLAIMER : THIS IS A VISIT SUMMARY EXTRACTED FROM THE [employer] CHART. IT IS NOT A COPY OF THE [employer] PROGRESS NOTE. MTDD
== END ==
LOC: M PAIN 10:45
PROVIDERS: ATTEND Nurse Practitioner Family
DX: M54.5 Low back pain (principal); G89.29 Other chronic pain; G43.909 Migraine, unspecified, not intractable, without status migrainosus; Z86.59 Personal history of other mental and behavioral disorders; Z87.891 Personal history of nicotine dependence; Z88.3 Allergy status to other anti-infective agents; Z91.013 Allergy to seafood; Z91.040 Latex allergy status; Z91.041 Radiographic dye allergy status; Z79.891 Long term (current) use of opiate analgesic; Z79.899 Other long term (current) drug therapy

== ENCOUNTER → 2020-12-14 | Outpatient (CLI) | payer MEDICARE, OTHER ==
[~2020-12-14] MED LIST changes: +LYRI200C PO
== END ==
LOC: M PAIN 11:45
PROVIDERS: ATTEND Anesthesiology
DX: M25.551 Pain in right hip (principal); G43.909 Migraine, unspecified, not intractable, without status migrainosus; F43.10 Post-traumatic stress disorder, unspecified; F41.9 Anxiety disorder, unspecified; F32.9 Major depressive disorder, single episode, unspecified; M19.90 Unspecified osteoarthritis, unspecified site; M87.051 Idiopathic aseptic necrosis of right femur; M87.052 Idiopathic aseptic necrosis of left femur; Z85.79 Personal history of other malignant neoplasms of lymphoid, hematopoietic and related tissues; Z79.891 Long term (current) use of opiate analgesic; Z79.899 Other long term (current) drug therapy; Z91.040 Latex allergy status; Z91.041 Radiographic dye allergy status; Z88.8 Allergy status to other drugs, medicaments and biological substances; Z91.013 Allergy to seafood

== ENCOUNTER → 2022-08-31 | Outpatient (CLI) | payer MEDICARE, OTHER, MEDICAID ==
[~2022-08-31] MED LIST changes: +ALEN70TA87 PO; +CYMB60CA4 PO; -FOSA70TA PO; -MELA10TA PO; +MELATONIN CR10 MG PO; -SUMA6INJ16 SC; +SUMA6INJ25 SC
== END ==
LOC: M WHC 10:45
PROVIDERS: ATTEND Student in an Organized Health Care Education/Training Program
DX: Z12.31 Encounter for screening mammogram for malignant neoplasm of breast (principal)

== ENCOUNTER 2024-10-29 06:53 | Day surgery (SDC) | payer MEDICARE, OTHER, MEDICAID ==
[~2024-10-29] VITALS: Ht 167.6 cm; Wt 65.7 kg
[~2024-10-29 06:53] MED LIST changes: -AMBI5TAB PO; +DRON5CAP19 PO; +FLAX1CAP5 PO; +HYDR-3713 PO; +HYDR28.39 TOP; -HYDR4CRE TOP; +LIDO1ADH93 TOP; -LIDO5DIS41 TOP; +NOXI1TAB PO; +PREG150C2 PO; +SUMA6CAR SC; -SUMA6INJ25 SC; +SUMA6PEN5 SC; +VENL150C43 PO; +ZOLP-532 PO; +oil of oregano
[2024-10-29] MEDS ORDERED: LR 1,000 ML IV SCH (07:00)
[2024-10-29] MEDS ORDERED: dexAMETHasone 4 MG/ML 1 ML VIAL As Ordered ONE (08:48)
[2024-10-29] MEDS ORDERED: LIDOCAINE 2% 100 MG/5 ML SDV (FOR ANES.) As Ordered ONE (08:48)
[2024-10-29] MEDS ORDERED: MIDAZOLAM INJ 2 MG/2 ML VIAL As Ordered ONE (08:48)
[2024-10-29] MEDS ORDERED: ONDANSETRON 4MG 2ML VIAL As Ordered ONE (08:48)
[2024-10-29] MEDS ORDERED: dexmedeTOMIDine (4 MCG/ML) 200 MCG/50 ML BTL As Ordered ONE (09:24)
[2024-10-29] MEDS: HEPARIN SOD 5000 UNITS/ML 1 ML VIAL/SYRINGE SQ ONE (10:18)
[2024-10-29] MEDS: ceFAZolin SOD 2 GM IV ONCE IV ONE (10:24)
[2024-10-29] MEDS ORDERED: ACETAMINOPHEN 1000MG/100ML IV BAG As Ordered ONE (10:39)
[2024-10-29] MEDS: POLYSPORIN OPHTH OINT 3.5 GM As Ordered ONE (10:49)
[2024-10-29] MEDS: LIDOCAINE 2% W/EPINEPHrine 20 ML VIAL **PRES FREE As Ordered ONE (10:50)
[2024-10-29 11:02] VITALS: BP 115/67; TEMP 96.6; O2SAT 99
== END 2024-10-29 11:40 | disposition home or self-care (01) ==
LOC: M SDC 06:53
PROVIDERS: ATTEND Plastic Surgery Surgery of the Hand
DX: L72.0 Epidermal cyst (principal); G47.30 Sleep apnea, unspecified; F17.290 Nicotine dependence, other tobacco product, uncomplicated; Z91.041 Radiographic dye allergy status; Z91.040 Latex allergy status; Z79.899 Other long term (current) drug therapy
CPT/HCPCS: 11441; 12051; 36415; 84132; 88305; J0131; J0690; J1100; J2250; J2405; J3010

== ENCOUNTER → 2025-01-05 | Outpatient (CLI) | payer MEDICARE, OTHER | LOC: M PLAIMG 07:33 | PROVIDERS: ATTEND Internal Medicine | DX: R01.1 Cardiac murmur, unspecified (principal) ==